=== PATIENT | male | born 1950 | race Caucasian/White ===

== ENCOUNTER 2020-04-09 10:14 | Outpatient (CLI) | payer MEDICARE, BC, SELFPAY ==
--- NOTE | 2020-04-09 11:30 | NEURO_ITS ---
Patient Number: [id number] Impression: # Complains of gait instability with significant numbness. # Neuropathy proximal and distal with decreased motor unit potentials distally more than proximally. # No active fibrillations. # Obvious feet abnormalities. Nerve Conduction Studies Anti Sensory Summary Table Stim Site NR Peak (ms) P-T Amp (?V) Site1 Site2 Delta-P (ms) Dist (cm) Carmelo (m/s) Left Sup Fibular Anti Sensory (Ant Lat Mall) 14 cm 4.3 18.6 14 cm Ant Lat Mall 4.3 16.0 37 Right Sup Fibular Anti Sensory (Ant Lat Mall) 14 cm 4.2 5.7 14 cm Ant Lat Mall 4.2 16.0 38 Left Sural Anti Sensory (Lat Mall) Calf 4.6 14.6 Calf Lat Mall 4.6 16.0 35 Right Sural Anti Sensory (Lat Mall) Calf 4.2 11.9 Calf Lat Mall 4.2 16.0 38 Motor Summary Table Stim Site NR Onset (ms) O-P Amp (mV) Site1 Site2 Delta-0 (ms) Dist (cm) Carmelo (m/s) Left Peroneal Motor (Vastus Med) Ankle 5.5 2.0 Popit Ankle 11.1 41.0 37 Popit 16.6 1.6 Right Peroneal Motor (Vastus Med) Ankle 5.0 1.2 Popit Ankle 10.2 40.0 39 Popit 15.2 0.8 Left Tibial Motor (Abd Whalen Brev) Ankle 4.7 0.3 Knee Ankle 13.0 45.0 35 Knee 17.7 0.4 Right Tibial Motor (Abd Whalen Brev) Ankle 4.2 0.8 Knee Ankle 12.1 47.0 39 Knee 16.3 0.2 F Wave Studies NR F-Lat (ms) L-R F-Lat (ms) Left Peroneal (Mrkrs) (EDB) 61.60 2.62 Right Peroneal (Mrkrs) (EDB) 58.98 2.62 Left Tibial (Mrkrs) (Abd Hallucis) 60.12 0.70 Right Tibial (Mrkrs) (Abd Hallucis) 60.82 0.70 EMG Side Muscle Nerve Root Ins Act Fibs Amp Dur Recrt Comment Right AntTibialis Dp Br Fibular L4-5 Nml Nml Decr >12ms Reduced Right Gastroc Tibial S1-2 Nml Nml Decr >12ms Reduced Right Fibularis Long Sup Br Fibular L5-S1 Nml Nml Decr >12ms Reduced Right Flex Dig Long Tibial L5-S2 Nml Nml Decr >12ms Reduced Right Ext Dig Brev Dp Br Fibular L5, S1 Nml Nml Decr >12ms Reduced Left AntTibialis Dp Br Fibular L4-5 Nml Nml Decr >12ms Reduced Left Gastroc Tibial S1-2 Nml Nml Decr >12ms Reduced Left Fibularis Long Sup Br Fibular L5-S1 Nml Nml Decr >12ms Reduced Left Flex Dig Long Tibial L5-S2 Nml Nml Decr >12ms Reduced Left Ext Dig Brev Dp Br Fibular L5, S1 Nml Nml Decr >12ms Reduced Right QuadratusFem QuadFemoris L4-5, S1 Nml Nml Decr >12ms Reduced Left QuadratusFem QuadFemoris L4-5, S1 Nml Nml Decr >12ms Reduced MTDD
== END 2020-04-09 10:15 | disposition home or self-care (01) ==
PROVIDERS: PCP Student in an Organized Health Care Education/Training Program; Visit Provider Psychiatry & Neurology Neurology
DX: G62.9 Polyneuropathy, unspecified (principal)
CPT/HCPCS: 95886; 95910

== ENCOUNTER 2020-04-22 18:59 | Inpatient (IN) | payer MEDICARE, BC, SELFPAY ==
--- NOTE | ~2020-04-22 | CT_ITS ---
EXAMINATION: CT abdomen pelvis wo con DATE: 04/24/2020 10:11 INDICATION: Hematuria TECHNIQUE: Computed tomography (CT) of the abdomen and pelvis was performed without intravenous contr ast. Automated exposure control and iterative reconstruction technique were employed. The dose-length product was 1044.30 mGy-cm. COMPARISON: None FINDINGS: Calcified nodule in the right lower lobe consistent with old granulomatous disease. Lung bases are ot herwise clear. Heart size is normal. Atherosclerotic coronary artery calcification. No pericardial or pleural effusion. Liver, gallbladder, spleen, pancreas and bilateral adrenal glands are normal. 4-5 mm obstructing stone in the distal left ureter approximately 2.5 cm from the ureterovesicular junctio n. Mild left hydroureteronephrosis. There are couple additional 1 mm stones at the upper and middle c alyces of the left kidney. 4 nonobstructing stones in the right kidney, the largest a 5 mm stone in a n inferior calyx. No right-sided hydronephrosis or ureteral stones. Bladder is decompressed which lam its evaluation. There are a few scattered colonic diverticula without adjacent from [address] diverticulitis. Small bowel and appendix are normal. No free intraperitoneal gas or fluid. No path ologically enlarged abdominal or pelvic lymphadenopathy. Bilateral fat-containing inguinal hernias. L umbar posterior spinal fusion procedure including L3 and L4 laminectomies and partial L3 laminectomy and bilateral vertical darek and pedicle screw fixation extending from L2-L5. Spinal stimulator device is in the subcutaneous tissues of the right buttock with lead extending cephalad along the posterior aspect of the lower thoracic central canal to at least the cephalad-most image which is at T8. There is also a pain pump in the subcutaneous tissues anterior to the right lower quadrant with catheter ex tending cephalad along the thoracic central canal with distal tip at the level of T9. There are bridg ing osteophytes at multiple levels in the lower thoracic spine, consistent with diffuse idiopathic sk eletal hyperostosis (DISH). Right total hip arthroplasty. Severe left hip osteoarthritis. IMPRESSION: 1. Bilateral nephrolithiasis with obstructing 4-5 mm distal left ureteral stone with mild left hydrou reteronephrosis. Reviewed, dictated and finalized at location A. IMPRESSION: 1. Bilateral nephrolithiasis with obstructing 4-5 mm distal left ureteral stone with mild left hydroureteronephrosis.
--- NOTE | ~2020-04-22 | XR_ITS ---
EXAMINATION: XR abdomen/kub 1V DATE: 04/24/2020 14:08 INDICATION: Urolithiasis. TECHNIQUE: A supine view of the abdomen on 2 radiographs was obtained. COMPARISON: CT abdomen and pelvis 04/24/2020 FINDINGS: There are no dilated loops of bowel. There are 3 stones in right kidney measuring up to 6 m m. There is a 4 mm stone in distal left ureter overlying the sacrum. There is a total right hip arthr oplasty. There are changes of anterior and posterior fusion procedures in lumbar spine. A catheter an d electrodes overlie the spine. IMPRESSION: 1. 4 mm stone in distal left ureter. 2. Right kidney stones. Reviewed, dictated and finalized at location A.
--- NOTE | ~2020-04-22 | XR_ITS ---
EXAMINATION: XR shoulder LT min 2V EXAM DATE: 04/22/2020 20:20 INDICATION: Fall, left shoulder pain. TECHNIQUE: The following left shoulder projections obtained: frontal projection with internal rotatio n, frontal projection with external rotation, Grashey, and scapular Y view (4+ views). There is no p rior study for comparison. FINDINGS: There is mild to moderate glenohumeral and acromioclavicular joint primary osteoarthritis. There are no acute fractures or dislocations identified. There is no subcutaneous gas. The soft tis lee ann is unremarkable. There are no radiopaque foreign bodies. IMPRESSION: No acute osseous findings. Reviewed, dictated and finalized at location A. IMPRESSION: No acute osseous findings.
--- NOTE | ~2020-04-22 | CT_ITS ---
EXAMINATION: CT brain wo con EXAM DATE: 04/22/2020 20:07 INDICATION: Frequent falls. TECHNIQUE: Spiral CT of the head was performed without contrast. Axial, coronal and sagittal images were reviewed. The dose-length product (DLP) for this examination was 681.00 mGy-cm. The exposure w as tailored according to patient size, and iterative reconstruction (ASIR) was used as additional dos e reduction technique. Comparison is made to prior examination from 10/20/2019. FINDINGS: There is no acute intraparenchymal hemorrhage. No evidence of intraparenchymal brain mass lesion. No evidence of acute infarction. Please note that initial head CT has limited sensitivity f or small or acute infarctions. There is mild periventricular and subcortical hypodensity, nonspecific but probably related to small vessel ischemic disease. There is mild prominence of the sulci and v entricles related to cerebral atrophy. There is intracranial carotid arteriosclerosis. There are n o extra-axial collections. There is no mass effect or midline shift. The orbits are unremarkable. Soft tissue is unremarkable. The visualized sinuses and mastoid air cells are well aerated. IMPRESSION: 1. No acute intracranial findings. 2. Chronic age related findings. Reviewed, dictated and finalized at location A.
--- NOTE | 2020-04-22 19:06 | ED.GENADULT ---
HPI - General Adult General Chief complaint: Altered Mental Status Stated complaint: weakness Time Seen by Provider: 04/22/20 19:06 Source: patient Mode of arrival: EMS Limitations: no limitations History of Present Illness HPI narrative: Patient is a 69-year-old male who presents for evaluation of a ground-level fall. Patient reportedly ambulates with the use of a cane, has had a fall at least once per month since October, when he tripped in the bathroom and fell onto his bottom. Patient states he feels like he hurt his left shoulder when he fell. He denies any prodromal symptoms such as chest pain, shortness of breath, palpitations prior to the fall. No recent lightheadedness or dizziness, patient states that his blood pressure has been downtrending since he has had a 50 pound intentional weight loss, and his primary care physician took him off of his antihypertensives. Patient denies any recent illness, no diarrhea, no decreased oral intake. No hip pain. No numbness. No current weakness. Related Data Home Medications Medication Instructions Recorded Confirmed divalproex PO 10/20/19 divalproex PO 10/20/19 gabapentin 10/20/19 lurasidone [Latuda] mg 10/20/19 meloxicam 10/20/19 tamsulosin mg PO 10/20/19 Allergies Allergy/AdvReac Type Severity Reaction Status Date / Time No Known Allergies Allergy Verified 04/22/20 19:16 Review of Systems Review of Systems: Narrative: CONSTITUTIONAL: Denies fever, chills, or sweats. EYES: Denies visual changes, redness, or discharge. ENT: Denies rhinorrhea, congestion, sore throat, or otalgia. CARDIOVASCULAR: Denies chest pain, palpitations, or edema. RESPIRATORY: Denies cough or dyspnea. GASTROINTESTINAL: Denies abdominal pain, nausea, vomiting, or diarrhea. GENITOURINARY: Denies dysuria or hematuria. SKIN: Denies rash or itching. MUSCULOSKELETAL: Denies back pain, reports left sided shoulder pain NEUROLOGIC: Denies headache, numbness, or weakness. [facility] Past Medical History Medical History Anxiety Arthritis Back pain Bilateral ankle fractures Bipolar disorder DDD (degenerative disc disease) Depression GERD (gastroesophageal reflux disease) Hypothyroidism Kidney stone Osteoporosis Surgical History Surgical History History of right hip replacement Hx of spinal surgery spinal fusion on L4-L5 Family History Family History Mother Hypertension, Onset Age: 83 Family history of respiratory disorder, Onset Age: 83 Family history of chronic obstructive pulmonary disease, Onset Age: 83 Other Family history of gynecological problem Social History Social History Smoking status: Never smoker Alcohol intake: current Gender identity (if verbalized by the patient): Male Exam Narrative: Exam Narrative: GENERAL: Awake, alert, conversant HEAD: Normocephalic, atraumatic. EYES: PERRLA and EOMI. ENT: Nares clear, no rhinorrhea or epistaxis. Mucous membranes moist.l NECK: Supple. No cervical spine tenderness, no midline or paraspinal tenderness, full range of motion. CHEST: No respiratory distress, breathing even and non labored HEART: Regular rate, sinus rhythm ABDOMEN:Non distended, non tender, pain pump RLQ EXTREMITIES: Normal range of motion. No edema. Tenderness overlying left shoulder, intact sensation over the deltoid, no squaring off of the shoulder, intact sensation m/u/r nerve. Radial pulse 2+, no deformity. SKIN: Warm, dry, no rash. NEURO:No focal deficits. Alert and oriented x3, resting tremor present right hand, mild atrophy present lower extremities Course Vital Signs Vital signs: Vital Signs Temperature 36.9 C 04/22/20 19:07 Pulse Rate 90 04/22/20 19:07 Respiratory Rate 20 04/22/20 19:07 Blood Pressu
[2020-04-22 19:07] VITALS: BP 109/85; PULSE 90; RESP 20; TEMP 36.9; O2SAT 94
--- NOTE | 2020-04-22 19:17 | ECG_ITS ---
Measurements Intervals [place] Rate: 79 P: 20 IA: 169 QRS: -40 QRSD: 118 T: 76 QT: 396 QTc: 456 Interpretive Statements SINUS RHYTHM LEFT AXIS DEVIATION INTRAVENTRICULAR CONDUCTION DELAY MINIMAL Q WAVES- HIGH LATERAL LEADS BORDERLINE ST-T WAVE ABNORMALITY- HIGH LATERAL LEADS BASELINE ARTIFACT- I, II, III, AVR, AVF BORDERLINE ECG Electronically Signed On 04-23-2020 6:47:13 CDT by Yfn Recinos D.O.
[2020-04-22] MEDS: SODIUM CHLORIDE 0.9% IV 1,000 ML 999 ML IV CONT (19:40)
[2020-04-22 19:46] LABS: Basophils Percent Auto 0.4 % (0.2-1.2); Blood Urea Nitrogen 10 mg/dL (9-20); Calcium 9.8 mg/dL (8.4-10.2); Carbon Dioxide 38 mmol/L (22-30); Chloride 96 mmol/L (98-107); Eosinophils Percent Auto 0.4 % (0-4.4); Estimated CRCL calculation 70 ml/min; Estimated Glomerular Filt Rate 60; Glucose 99 mg/dL (75-110); Hematocrit 39.3 % (42.0-52.0); Hemoglobin 13.1 g/dL (14.0-18.0); Immature Granulocyte Absolute 0.03 K/mm3 (0.00-0.031); Immature Granulocyte Percent A 0.3 % (0-0.5); Lymphocytes Absolute Auto 1.78 K/mm3 (0.9-3.2); Lymphocytes Percent Auto 17.1 % (18.3-44.2); Mean Corpuscular HGB Conc 33.3 g/dl (32-36); Mean Corpuscular Hemoglobin 29.2 pg (26-34); Mean Corpuscular Volume 87.7 fl (80-100); Mean Platelet Volume 9.2 fl (7.4-10.4); Monocytes Absolute Auto 1.5 K/mm3 (0.1-0.6); Monocytes Percent Auto 14.8 % (2.6-8.5); Platelet Count Result 321 k/mm3 (150-375); Potassium 3.7 mmol/L (3.4-5.0); Red Blood Count 4.48 M/mm3 (4.6-6.20); Red Cell Distribution Width 13.2 % (11.5-14.5); Sodium 138 mmol/L (137-145); White Blood Count 10.4 K/mm3 (4.5-10.0)
[2020-04-22 19:58] LABS: Troponin I < 0.012 ng/mL (0.000-0.034)
[2020-04-22 21:24] LABS: Add Urine Microscopic? YES; Appearance Urine Clear (Clear); Bilirubin Urine Negative (Negative); Blood Urine 3+ (Negative); Color Urine Yellow (Yellow); Glucose Urine UA Negative (Negative); Ketones Urine Negative (Negative); Leukocyte Esterase Ur Negative LEU/UL (Negative); Mucus Urine Rare /lpf; Nitrate Urine Negative (Negative); Protein Urine Negative (Negative); RBC Urine 51-75 /hpf (0-2); Specific Grav Ur 1.015 (1.001-1.035); Squamous Epithelial Cell Urine Rare /hpf (Few); Urobilinogen Urine Negative mg/dL (<2.0); WBC Urine 0-3 /hpf
[2020-04-22 22:53] VITALS: BP 126/84; PULSE 75; RESP 22; TEMP 36.9; O2SAT 99
[2020-04-23 00:10] VITALS: BP 146/67; PULSE 68; RESP 18; TEMP 37.1; O2SAT 95; BMI 30.4
--- NOTE | 2020-04-23 00:21 | ADMGEN ---
This patient, Phani Patricia, was admitted to [facility] Surg Room 306-01. Patient/family oriented to hospital policies and general routines including ID bracelet, bed and alarms, visiting hours, pain management, procedures, bathroom and other care routines, personal items, smoking policy, room service/diet, and visiting hours. Valuables list has been completed. Information on how to activate the Rapid Response Team has been discussed. Patient/Family are encouraged to report perceived risks to care and to ask questions if they do not understand what they are told or what they should do.
[2020-04-23 00:48] VITALS: PULSE 72; O2SAT 93
--- NOTE | 2020-04-23 02:14 | PM.IMHP ---
H&P: HPI History of Present Illness Chief complaint: Frequent falls Narrative: This is a 69 year old male with known history of severe peripheral neuropathy, hypothyroidism and GERD who presented to the hospital after suffering a fall tonight in his bathroom and not being able to get back up. The patient is known to have chronic severe lower extremity peripheral neuropathy and tells me that he cannot feel his feet. This is the 4th fall that he has suffered since October and after each fall he cannot get up off the ground because he is too weak. He fell this evening after he used the bathroom and got up to leave the bathroom. He describes simply loosing his balance and falling backwards. He struck the back of his head on the way down but denies hitting his head on the floor or passing out. The patient was evaluated in the ER and CT brain was negative. Routine labs were unremarkable. The patient was going to be discharged home but asked that he stay in the hospital as he is afraid he is a danger for more falls and cannot care for himself. He also reports that he has had a chronic wound on the bottom of his right foot. He also denies any fevers, chills, cough, sore throat, headache, chest pain, abdominal pain, dysuria, hematuria, diarrhea or rectal bleeding. Review of Systems Review of Systems: All systems reviewed & are unremarkable except as noted in HPI and below PMFSH Past Medical History Medical History (Updated 04/23/20 @ 13:38 by Angel Presley MD) Anxiety Arthritis Back pain Bilateral ankle fractures Bipolar disorder DDD (degenerative disc disease) Depression GERD (gastroesophageal reflux disease) Hypothyroidism Kidney stone JANIS (obstructive sleep apnea) Osteoporosis Surgical History Surgical History History of right hip replacement Hx of spinal surgery spinal fusion on L4-L5 Family History Family History Mother Hypertension, Onset Age: 83 Family history of respiratory disorder, Onset Age: 83 Family history of chronic obstructive pulmonary disease, Onset Age: 83 Other Family history of gynecological problem Social History Social History Smoking status: Never smoker Alcohol intake: current Drinks per week: 2 Substance use: never Gender identity (if verbalized by the patient): Male Spiritual care concerns: No Meds Home Medications and Allergies Home Medications Medication Instructions Recorded Confirmed Type duloxetine 60 mg capsule,delayed 60 mg PO DAILY #90 cap 09/26/19 04/23/20 Rx release sprinkle divalproex 250 mg PO DAILY 10/20/19 04/23/20 History divalproex 500 mg PO DAILY 10/20/19 04/23/20 History lurasidone [Latuda] 40 mg PO DAILY 10/20/19 04/23/20 History tamsulosin 0.4 mg PO DAILY 10/20/19 04/23/20 History acidophilus-pectin, citrus 1 cap PO DAILY 04/23/20 04/23/20 History [Acidophilus Probiotic] buspirone 10 mg PO TID 04/23/20 04/23/20 History cholecalciferol (vitamin D3) 2,000 unit PO DAILY 04/23/20 04/23/20 History [Vitamin D3] furosemide 40 mg PO DAILY 04/23/20 04/23/20 History gabapentin 200 mg PO TID 04/23/20 04/23/20 History levothyroxine 150 mcg PO DAILY 04/23/20 04/23/20 History lisinopril 20 mg PO DAILY 04/23/20 04/23/20 History melatonin 10 mg PO HS 04/23/20 04/23/20 History polyethylene glycol 3350 [Miralax] 17 g PO DAILY 04/23/20 04/23/20 History propranolol 20 mg PO Q12H 04/23/20 04/23/20 History simvastatin 20 mg PO HS 04/23/20 04/23/20 History Allergies Allergy/AdvReac Type Severity Reaction Status Date / Time No Known Allergies Allergy Verified 04/22/20 19:16 Vital Signs Vital Signs - 24 hr 04/22/20 19:07 04/22/20 22:53 04/23/20 00:10 Temperature 36.9 C 36.9 C 37.1 C Pulse Rate 90 75 68 Respiratory Rate 20 22 H 18 Blood Pressure 109/85 126/84 146/
[2020-04-23 06:00] VITALS: BP 127/66; PULSE 71; RESP 18; TEMP 36.4; O2SAT 95
[2020-04-23] MEDS: LEVOTHYROXINE SODIUM 100 MCG TABLET PO (06:40)
[2020-04-23] MEDS: ACIDOPHILUS/BULGARICUS CHEWABLE TABLET 1 TABLET PO (08:38)
[2020-04-23] MEDS: GABAPENTIN 300 MG CAPSULE 600 MG PO (08:38)
[2020-04-23] MEDS: polyethylene glycoL 3350 17 GM POWD.PACK PO (08:38)
[2020-04-23] MEDS: FUROSEMIDE 40 MG TABLET PO (08:39)
[2020-04-23] MEDS: DULOXETINE 60 MG CAPSULE.DR PO (08:39)
[2020-04-23] MEDS: CHOLECALCIFEROL 1,000 UNIT TABLET 2000 UNITS PO (08:39)
--- NOTE | 2020-04-23 13:16 | PM.IMPN ---
Progress Note: A&P Assessment and Plan (1) Ambulatory dysfunction: Code(s): R26.2 - Difficulty in walking, not elsewhere classified Status: Acute Assessment and Plan: Related to severe peripheral neuropathy. Continue PT and OT. Will check B12 and TSH. (2) Falls frequently: Code(s): R29.6 - Repeated falls Status: Chronic Assessment and Plan: Again felt related to the severe peripheral neuropathy. Therapy following. Placement being arranged. (3) Peripheral neuropathy: Qualifiers: Peripheral neuropathy type: polyneuropathy, unspecified Qualified Code(s): G62.9 - Polyneuropathy, unspecified Code(s): G62.9 - Polyneuropathy, unspecified Status: Chronic Assessment and Plan: Continue gabapentin. The patient has requested that we consult his Neurologist, Dr. Loza to see him which was ordered. (4) Depression: Qualifiers: Depression Type: unspecified Qualified Code(s): F32.9 - Major depressive disorder, single episode, unspecified Code(s): F32.9 - Major depressive disorder, single episode, unspecified Status: Chronic Assessment and Plan: Mood stable. Continue duloxetine PO. (5) Bipolar disorder: Qualifiers: Active/Remission status: remission status unspecified Qualified Code(s): F31.9 - Bipolar disorder, unspecified Code(s): F31.9 - Bipolar disorder, unspecified Status: Chronic Assessment and Plan: Stable. Continue Valproic acid and buspirone for now. VPA can cause asthenia which could be contributing to his issues. Latuda reordered. (6) Hypothyroidism: Qualifiers: Hypothyroidism type: unspecified Qualified Code(s): E03.9 - Hypothyroidism, unspecified Code(s): E03.9 - Hypothyroidism, unspecified Status: Chronic Assessment and Plan: Stable. Continue levothyroxine. Check TSH (7) Wound of foot: Code(s): S91.309A - Unspecified open wound, unspecified foot, initial encounter Status: Chronic Assessment and Plan: Chronic right foot wound. Continue local wound care. Patient is being followed by podiatry. (8) Hematuria: Code(s): R31.9 - Hematuria, unspecified Status: Acute Assessment and Plan: UA noted. He denies that he was cathed for specimen. Has BPH currently on Flomax. Lifelong nonsmoker. No symptoms of hematuria and dysuria. Will check CT scan. (9) JANIS (obstructive sleep apnea): Code(s): G47.33 - Obstructive sleep apnea (adult) (pediatric) Status: Acute Assessment and Plan: Tolerated CPAP last night. Bicarb level elevated probably related to poorly controlled JANIS. Continue CPAP at night and with naps. Probably will need repeat sleep evaluation if not done recently. Check ABG to see if he has chronic retention that might explain his above symptoms. Subjective Date/time seen: 04/23/20 13:16 Interval history: 69yo male here for fall. Assuming care. Chart reviewed. Naya has soreness occipital region but better. No CP or SOB. He has been up walking with walker. No n/v. No diarrhea. Tolerated the mask last night. Exam Narrative: Exam Narrative: AF 127/66 71 Gen - NARD HEENT - NC. No open areas occiput region Neck - supple Chest - CTA bilaterally, nml RR CV - RRR S1/S2 Abd - Soft, NT/ND, Positive BS Ext - No pedal edema Neuro - Alert and oriented. Nonfocal exam. Psych - Nml mood and affect Skin -right medial sole 1 cm round flat lesion with necrotic border small central ulcer 0.5 cm; dried callus noted medial aspect right great toe Objective Data Vital Signs Vital Signs: Vital Signs - 24 hr 04/22/20 19:07 04/22/20 22:53 04/23/20 00:10 Temperature 98.4 F 98.4 F 98.8 F Pulse Rate 90 75 68 Respiratory Rate 20 22 H 18 Blood Pressure 109/85 126/84 146/67 H Pulse Oximetry 94 99 95 04/23/20 00:48 04/23/20 06:00 Temperatur
[2020-04-23] MEDS: ACETAMINOPHEN 325 MG TABLET 650 MG PO ×2 (13:43→17:51)
[2020-04-23 14:00] VITALS: BP 167/87; PULSE 89; RESP 16; TEMP 36.7; O2SAT 97
[2020-04-23 14:18] LABS: Base Excess ABG 10.6 mEq/l (+/-2.0); Fractional Inspired Oxygen 21 %; HCO3 ABG 36.2 mEq/l (22.0-26.0); Oxygen Content ABG 17.5 %vol (16.0-22.0); Oxyhemoglobin 92.9 % THb (90.0-100.0); PCO2 ABG 52.1 mmHg (35.0-45.0); PO2 ABG 67.3 mmHg (80.0-100.0); Total Hemoglobin 13.4 g/dL (12.0-18.0)
[2020-04-23 14:19] LABS: Device ROOM AIR; Modified Allen's Test Pass; Site Drawn RIGHT RADIAL
[2020-04-23 15:40] LABS: Alanine Aminotransferase 16 U/L (4-50); Alkaline Phosphatase 93 U/L (38-126); Aspartate Amino Transferase 29 U/L (17-59); Bilirubin,Total 0.4 mg/dL (0.2-1.3)
[2020-04-23 16:45] LABS: Folic Acid 8.6 ng/mL (2.76->20)
[2020-04-23] MEDS: GABAPENTIN 100 MG CAPSULE 200 MG PO (16:49)
[2020-04-23] MEDS: busPIRone HCL 10 MG TABLET PO (16:49)
[2020-04-23] MEDS: DIVALPROEX SODIUM 250 MG TABEC PO (20:26)
[2020-04-23] MEDS: SIMVASTATIN 20 MG TABLET PO (20:26)
[2020-04-23] MEDS: TAMSULOSIN HCL 0.4 MG CAPSULE PO (20:26)
[2020-04-23] MEDS: DIVALPROEX SODIUM 250 MG TABEC 500 MG PO (20:26)
[2020-04-23 22:00] VITALS: BP 134/70; PULSE 60; RESP 18; TEMP 36.8; O2SAT 94
[2020-04-23 22:10] VITALS: PULSE 64; O2SAT 95
[2020-04-24 02:01] VITALS: PULSE 70; O2SAT 94
[2020-04-24 06:00] VITALS: BP 129/76; PULSE 62; RESP 18; TEMP 36.7; O2SAT 99
[2020-04-24] MEDS: CHOLECALCIFEROL 1,000 UNIT TABLET 2000 UNITS PO (08:25)
[2020-04-24] MEDS: FUROSEMIDE 40 MG TABLET PO (08:25)
[2020-04-24] MEDS: DULOXETINE 60 MG CAPSULE.DR PO (08:25)
[2020-04-24] MEDS: GABAPENTIN 100 MG CAPSULE 200 MG PO ×3 (08:25→16:55)
[2020-04-24] MEDS: ACIDOPHILUS/BULGARICUS CHEWABLE TABLET 1 TABLET PO (08:25)
[2020-04-24] MEDS: busPIRone HCL 10 MG TABLET PO ×3 (08:25→16:56)
--- NOTE | 2020-04-24 13:15 | WPDURCON ---
Assessment and Plan Assessment and plan (1) Microhematuria: Code(s): R31.29 - Other microscopic hematuria Status: Acute (2) Bilateral renal stones: Code(s): N20.0 - Calculus of kidney Status: Acute (3) Left ureteral stone: Code(s): N20.1 - Calculus of ureter Status: Acute Assessment and Plan: Micro hematuria likely due to urolithiasis as described above 4-5 mm partially obstructing left distal ureteral calculus is minimally problematic. After discussion with the patient we opted for conservative management. I will plan to see him back in 7-10 days with a KUB to see if his stone has spontaneously passed. His stone fails to pass, or he starts to have acute colic, we can intervene with ureteroscopy and stone extraction Get a KUB to see if stones are calcified. Urology Consult Note HPI Date Seen: 04/24/20 Requesting Physician: Micheal Presley MD Primary Care Provider: Lauro Campbell, Consult Narrative Narrative: Phani Patricia is a 69 year old male with a history of several prior ureteral calculi which have passed spontaneously. He is admitted now with progressive neuropathy leading to multiple falls. During the course of initial evaluation was noted to have microscopic hematuria. A CT scan of the abdomen and pelvis without contrast demonstrates bilateral renal calculi up to 4-5 mm in a partially obstructing 4 mm left distal ureteral stone. Patient is having only very minimal left flank discomfort which is not particularly problematic. He denies irritable voiding symptoms Review of Systems Cardiovascular: Cardiovascular: Denies chest pain, Denies lightheadedness, Denies palpitations and Denies dyspnea Respiratory: Respiratory: Denies dyspnea Gastrointestinal: Gastrointestinal: Denies diarrhea, Denies nausea and Denies vomiting Genitourinary: Genitourinary: Denies hematuria and Denies dysuria Endocrine: Endocrine: Denies palpitations [facility] Past Medical History Medical History (Updated 04/24/20 @ 13:17 by Roscoe Ballard MD) Anxiety Arthritis Back pain Bilateral ankle fractures Bipolar disorder DDD (degenerative disc disease) Depression GERD (gastroesophageal reflux disease) Hypothyroidism Kidney stone JANIS (obstructive sleep apnea) Osteoporosis Surgical History Surgical History History of right hip replacement Hx of spinal surgery spinal fusion on L4-L5 Family History Family History Mother Hypertension, Onset Age: 83 Family history of respiratory disorder, Onset Age: 83 Family history of chronic obstructive pulmonary disease, Onset Age: 83 Other Family history of gynecological problem Social History Social History Smoking status: Never smoker Alcohol intake: current Drinks per week: 2 Substance use: never Gender identity (if verbalized by the patient): Male Spiritual care concerns: No Meds Home Medications and Allergies Home Medications Medication Instructions Recorded Confirmed Type duloxetine 60 mg capsule,delayed 60 mg PO DAILY #90 cap 09/26/19 04/23/20 Rx release sprinkle divalproex 250 mg PO DAILY 10/20/19 04/23/20 History divalproex 500 mg PO DAILY 10/20/19 04/23/20 History lurasidone [Latuda] 40 mg PO DAILY 10/20/19 04/23/20 History tamsulosin 0.4 mg PO DAILY 10/20/19 04/23/20 History acidophilus-pectin, citrus 1 cap PO DAILY 04/23/20 04/23/20 History [Acidophilus Probiotic] buspirone 10 mg PO TID 04/23/20 04/23/20 History cholecalciferol (vitamin D3) 2,000 unit PO DAILY 04/23/20 04/23/20 History [Vitamin D3] furosemide 40 mg PO DAILY 04/23/20 04/23/20 History gabapentin 200 mg PO TID 04/23/20 04/23/20 History levothyroxine 150 mcg PO DAILY 04/23/20 04/23/20 History lisinopril 20 mg PO DAILY 04/23/20 04/23/20 H
--- NOTE | 2020-04-24 13:20 | CONS_ITS ---
DATE OF CONSULTATION: 04/22/2020 HISTORY OF PRESENT ILLNESS: A 69-year-old has been admitted to [facility] through the emergency room with the ongoing diagnoses of: 1. Severe peripheral neuropathy. 2. Hypothyroid. 3. GERD. 4. Recurrent falls with loss of the balance. Initial CT scan in the emergency room was negative. In addition, he carries a diagnosis of anxiety, arthritis, back pain, history of bipolar disorder, degenerative disk disease, depression, GERD, hypothyroidism, renal stone, and obstructive sleep apnea with osteoporosis. He is a current alcohol drinker, drinks per week at least 2. He is not a substance user and he never smoked. He has been taking multiple medications. PHYSICAL EXAMINATION: VITAL SIGNS: Up until now, he is afebrile, normotensive with blood pressure most recently 146/67. GENERAL: Physical examination revealed him to be awake, alert, cooperative, in no obvious acute distress. HEENT: Head normocephalic with no cranial bruit. Ear, nose, throat examination normal. NECK: Supple with no cervical bruit. No thyromegaly. No lymphadenopathy. HEART: Regular. LUNGS: Clear. ABDOMEN: Soft. NEUROLOGICAL: Normal. He is awake, alert, oriented x3. Speech not dysphasic, not dysarthric, not dysphonic. Pupils round, regular. Quintero of vision full. Extraocular movements full. Face symmetrical. Tongue midline. Motor examination revealed him to have decrease strength, sluggish reflexes, downgoing plantar responses. LABORATORY DATA: Evaluation up until now include the CT scan of the head, which is negative. The patient has been taking the same medication. At this stage, he has severe neuropathy with ongoing history of the recurrent falls. He will need the physical therapy and also readjustment in lifestyle. AVA OSEGUERA M.D. PLASTERING CONTRACTOR PLASTERING CONTRACTOR D I MT: Shanthi
[2020-04-24] MEDS: LEVOTHYROXINE SODIUM 150 MCG TABLET PO (13:33)
[2020-04-24 14:28] VITALS: BP 117/66; PULSE 81; RESP 16; TEMP 36.7; O2SAT 98
--- NOTE | 2020-04-24 15:24 | PCPTNOTE ---
The PT treatment was not completed today. Will continue per Plan of Care frequency and duration.
[2020-04-24 16:51] LABS: SARS-CoV-2 RNA PCR Negative
--- NOTE | 2020-04-24 19:00 | PM.IMPN ---
Progress Note: A&P Assessment and Plan (1) Ambulatory dysfunction: Code(s): R26.2 - Difficulty in walking, not elsewhere classified Status: Acute Assessment and Plan: Related to severe peripheral neuropathy. Continue PT and OT. B12 and TSH normal. (2) Falls frequently: Code(s): R29.6 - Repeated falls Status: Chronic Assessment and Plan: Again felt related to the severe peripheral neuropathy. Therapy following. Placement being arranged. (3) Peripheral neuropathy: Qualifiers: Peripheral neuropathy type: polyneuropathy, unspecified Qualified Code(s): G62.9 - Polyneuropathy, unspecified Code(s): G62.9 - Polyneuropathy, unspecified Status: Chronic Assessment and Plan: Continue gabapentin. The patient has requested that we consult his Neurologist, Dr. Loza to see him which was ordered. Appreciate neurology input. (4) Depression: Qualifiers: Depression Type: unspecified Qualified Code(s): F32.9 - Major depressive disorder, single episode, unspecified Code(s): F32.9 - Major depressive disorder, single episode, unspecified Status: Chronic Assessment and Plan: Mood stable. Continue duloxetine PO. (5) Bipolar disorder: Qualifiers: Active/Remission status: remission status unspecified Qualified Code(s): F31.9 - Bipolar disorder, unspecified Code(s): F31.9 - Bipolar disorder, unspecified Status: Chronic Assessment and Plan: Stable. Continue Valproic acid and buspirone for now. VPA can cause asthenia which could be contributing to his issues. Latuda reordered. (6) Hypothyroidism: Qualifiers: Hypothyroidism type: unspecified Qualified Code(s): E03.9 - Hypothyroidism, unspecified Code(s): E03.9 - Hypothyroidism, unspecified Status: Chronic Assessment and Plan: Stable. TSH okay. Continue levothyroxine. (7) Wound of foot: Code(s): S91.309A - Unspecified open wound, unspecified foot, initial encounter Status: Chronic Assessment and Plan: Chronic right foot wound. Continue local wound care. Patient is being followed by podiatry. (8) Left ureteral stone: Code(s): N20.1 - Calculus of ureter Status: Acute Assessment and Plan: CT scan showing bilateral nephrolithiasis with obstructing 4-5 mm distal left ureteral stone with mild left hydroureteronephrosis most likely causing the hematuria. This stone can be seen by KUB. Urology consulted and appreciate their input. (9) Hematuria: Code(s): R31.9 - Hematuria, unspecified Status: Acute Assessment and Plan: UA noted. He denies that he was cathed for specimen. Has BPH currently on Flomax. Lifelong nonsmoker. No symptoms of hematuria and dysuria. CT scan as mentioned above to explain the microscopic hematuria. (10) JANIS (obstructive sleep apnea): Code(s): G47.33 - Obstructive sleep apnea (adult) (pediatric) Status: Acute Assessment and Plan: Tolerated CPAP last night. Bicarb level elevated probably related to poorly controlled JANIS. ABG showing chronic CO2 retention. Continue CPAP at night and with naps. Will need repeat sleep evaluation if not done recently. Subjective Date/time seen: 04/24/20 19:00 Interval history: 69yo male here for fall. No complaints. Up walking in the halss with therapy. Slept well last night. Tolerated the CPAP. Does have left groin pain off and on for a few months. Exam Narrative: Exam Narrative: AF 117/66 81 Gen - NARD Chest - CTA bilaterally, nml RR CV - RRR S1/S2 Abd - Soft, NT/ND, Positive BS Ext - No pedal edema Psych - Nml mood and affect Objective Data Vital Signs Vital Signs: Vital Signs - 24 hr 04/23/20 22:00 04/23/20 22:10 04/24/20 02:01 Temperature 98.3 F Pulse Rate 60 64 70 Respiratory Rate 18 Blood Pressure 134/70 Pu
[2020-04-24] MEDS: DIVALPROEX SODIUM 250 MG TABEC 500 MG PO (20:20)
[2020-04-24] MEDS: DIVALPROEX SODIUM 250 MG TABEC PO (20:20)
[2020-04-24] MEDS: TAMSULOSIN HCL 0.4 MG CAPSULE PO (20:20)
[2020-04-24] MEDS: SIMVASTATIN 20 MG TABLET PO (20:20)
[2020-04-24 22:25] VITALS: BP 135/61; PULSE 72; RESP 18; TEMP 36.5; O2SAT 96
[2020-04-24 23:13] VITALS: PULSE 66; O2SAT 95
[2020-04-25] MEDS: LEVOTHYROXINE SODIUM 150 MCG TABLET PO (05:47)
[2020-04-25 07:49] VITALS: BP 125/69; PULSE 61; RESP 16; TEMP 36.9; O2SAT 98
[2020-04-25] MEDS: polyethylene glycoL 3350 17 GM POWD.PACK PO (08:11)
[2020-04-25] MEDS: CHOLECALCIFEROL 1,000 UNIT TABLET 2000 UNITS PO (08:11)
[2020-04-25] MEDS: busPIRone HCL 10 MG TABLET PO ×2 (08:11→12:11)
[2020-04-25] MEDS: FUROSEMIDE 40 MG TABLET PO (08:12)
[2020-04-25] MEDS: ACIDOPHILUS/BULGARICUS CHEWABLE TABLET 1 TABLET PO (08:12)
[2020-04-25] MEDS: DULOXETINE 60 MG CAPSULE.DR PO (08:12)
[2020-04-25] MEDS: GABAPENTIN 100 MG CAPSULE 200 MG PO ×2 (08:12→12:11)
--- NOTE | 2020-04-25 08:14 | WPDUROPN2 ---
Progress Note: A&P Assessment and Plan (1) Left ureteral stone: Code(s): N20.1 - Calculus of ureter Status: Acute Assessment and Plan: Patient is asymptomatic. Will follow conservatively. He is to continue to strain urine. Dr. bowles will see him as an outpatient in 7-10 days with a KUB and make further recommendations pending that study. If he develops any pain prior that he will need to be addressed sooner Subjective Subjective Date/Time Seen: 04/25/20 08:14 No major complaints at this time. Denies any left flank pain secondary to the ureteral calculus Review of Systems Review of Systems: All systems reviewed & are unremarkable except as noted in HPI and below Exam Const: General: no acute distress Resp: Effort & Inspection: normal respiratory effort Cardio: Rate: regular rate GI: Inspection: non-distended Objective Data Vital Signs Vital Signs: Vital Signs - 24 hr 04/24/20 14:28 04/24/20 22:25 04/24/20 23:13 Temperature 36.7 C 36.5 C Pulse Rate 81 72 66 Respiratory Rate 16 18 Blood Pressure 117/66 135/61 Pulse Oximetry 98 96 95 04/25/20 07:49 Temperature 36.9 C Pulse Rate 61 Respiratory Rate 16 Blood Pressure 125/69 Pulse Oximetry 98 Intake/Output Intake/Output: Intake & Output 04/22/20 04/23/20 04/24/20 04/25/20 23:59 23:59 23:59 23:59 Intake Total 1000 2270 2070 300 Output Total 300 2900 750 Balance 1000 8660 -020 450 Meds/Results Medications: Active Medications Generic Name Dose Route Start Last Admin Trade Name Freq PRN Reason Stop Dose Admin Acetaminophen 650 mg 04/22/20 22:22 04/23/20 17:51 Tylenol Tablet PO 650 mg Q4H PRN Administration Mild Pain (1-3) or Fever Buspirone HCl 10 mg 04/23/20 17:00 04/24/20 16:56 Buspar PO 10 mg TID LINDA Administration Divalproex Sodium 250 mg 04/23/20 21:00 04/24/20 20:20 Depakote Ec Tab PO 250 mg HS LINDA Administration Divalproex Sodium 500 mg 04/23/20 21:00 04/24/20 20:20 Depakote Ec Tab PO 500 mg HS LINDA Administration Duloxetine HCl 60 mg 04/23/20 09:00 04/24/20 08:25 Cymbalta PO 60 mg DAILY LINDA Administration Furosemide 40 mg 04/24/20 09:00 04/24/20 08:25 Lasix Tablet PO 40 mg DAILY LINDA Administration Gabapentin 200 mg 04/23/20 17:00 04/24/20 16:55 Neurontin PO 200 mg TID LINDA Administration Lactobacillus Acidophilus 1 tablet 04/23/20 09:00 04/24/20 08:25 Lactinex Chewable Tablet PO 05/23/20 09:01 1 tablet DAILY LINDA Administration Levothyroxine Sodium 150 mcg 04/24/20 09:00 04/25/20 05:47 Synthroid PO 150 mcg DAILY@0630 LINDA Administration Non-Formulary Medication 40 mg 04/23/20 09:00 Lurasidone [Latuda] PO 05/23/20 09:01 DAILY [facility] Polyethylene Glycol 17 gm 04/23/20 09:00 04/24/20 08:27 Miralax PO Not Given DAILY [facility] Simvastatin 20 mg 04/23/20 21:00 04/24/20 20:20 Zocor PO 20 mg HS LINDA Administration Tamsulosin HCl 0.4 mg 04/23/20 21:00 04/24/20 20:20 Flomax PO 0.4 mg HS [facility] Administration Vitamin D 2,000 unit 04/23/20 09:00 04/24/20 08:25 Vitamin D PO 2,000 unit DAILY LINDA Administration Radiology Results: ITS Impressions Head CT 04/22/20 20:10 IMPRESSION: 1. No acute intracranial findings. 2. Chronic age related findings. Shoulder X-Ray 04/22/20 20:29 IMPRESSION: No acute osseous findings. Abdomen/Pelvis CT 04/24/20 11:00 IMPRESSION: 1. Bilateral nephrolithiasis with obstructing 4-5 mm distal left ureteral stone with mild left hydroureteronephrosis. Abdomen X-Ray 04/24/20 15:07 IMPRESSION: 1. 4 mm stone in distal left ureter. 2. Right kidney stones. Labs Labs: Laboratory Results - last 24 hr 04/23/20 16:54 SARS-CoV-2 RNA (RT-PCR) Negative Quality VTE Prophylaxis VTE prophylaxis: mechanical ordered
[2020-04-25] MEDS: ACETAMINOPHEN 325 MG TABLET 650 MG PO (10:50)
--- NOTE | 2020-04-25 12:32 | PM.DS ---
DS: Admitting Diagnosis Admitting Diagnosis Admitting Diagnosis: Difficulty in walking, not elsewhere classified DS: Discharge Diagnosis Discharge Diagnosis (1) Ambulatory dysfunction: Code(s): R26.2 - Difficulty in walking, not elsewhere classified Status: Acute Assessment and Plan: Related to severe peripheral neuropathy. B12 and TSH normal. PT and OT work with the patient. Patient did well ambulating in the halls. (2) Falls frequently: Code(s): R29.6 - Repeated falls Status: Chronic Assessment and Plan: Again felt related to the severe peripheral neuropathy. Therapy following. Placement was arranged. (3) Peripheral neuropathy: Qualifiers: Peripheral neuropathy type: polyneuropathy, unspecified Qualified Code(s): G62.9 - Polyneuropathy, unspecified Code(s): G62.9 - Polyneuropathy, unspecified Status: Chronic Assessment and Plan: We continued his gabapentin. The patient has requested that we consult his Neurologist, Dr. Loza to see him which was ordered. Appreciate neurology input. (4) Depression: Qualifiers: Depression Type: unspecified Qualified Code(s): F32.9 - Major depressive disorder, single episode, unspecified Code(s): F32.9 - Major depressive disorder, single episode, unspecified Status: Chronic Assessment and Plan: Mood stable. We continued his duloxetine PO. (5) Bipolar disorder: Qualifiers: Active/Remission status: remission status unspecified Qualified Code(s): F31.9 - Bipolar disorder, unspecified Code(s): F31.9 - Bipolar disorder, unspecified Status: Chronic Assessment and Plan: Stable. Continue Valproic acid and buspirone for now. VPA can cause asthenia which could be contributing to his issues. Latuda reordered. (6) Hypothyroidism: Qualifiers: Hypothyroidism type: unspecified Qualified Code(s): E03.9 - Hypothyroidism, unspecified Code(s): E03.9 - Hypothyroidism, unspecified Status: Chronic Assessment and Plan: Stable. TSH okay. We continued levothyroxine. (7) Wound of foot: Code(s): S91.309A - Unspecified open wound, unspecified foot, initial encounter Status: Chronic Assessment and Plan: Chronic right foot wound. Continue local wound care. Patient is being followed by podiatry. (8) Left ureteral stone: Code(s): N20.1 - Calculus of ureter Status: Acute Assessment and Plan: CT scan showing bilateral nephrolithiasis with obstructing 4-5 mm distal left ureteral stone with mild left hydroureteronephrosis most likely causing the hematuria. This stone can be seen by KUB. Urology consulted and recommended conservative management at this time. Urology to follow-up with the patient in 7-10 days. (9) Hematuria: Code(s): R31.9 - Hematuria, unspecified Status: Acute Assessment and Plan: UA noted. He denies that he was cathed for specimen. Has BPH currently on Flomax. Lifelong nonsmoker. No symptoms of hematuria and dysuria. CT scan as mentioned above to explain the microscopic hematuria. (10) JANIS (obstructive sleep apnea): Code(s): G47.33 - Obstructive sleep apnea (adult) (pediatric) Status: Acute Assessment and Plan: Tolerated CPAP here. Bicarb level elevated probably related to poorly controlled JANIS. ABG showing chronic CO2 retention. Continue CPAP at night and with naps. Will need repeat sleep evaluation. (11) Essential hypertension, benign: Code(s): I10 - Essential (primary) hypertension Status: Acute Assessment and Plan: BP 109/85 on admission. Lisinopril and Proproanolol held. BP remained well controlled during his hospital course. Will continue to hold and resume these medications as tolerated. DS: Summary Hospital Course Reason for hospitalization: 69yo male here for fa
== END 2020-04-25 13:06 | DRG 74 ==
LOC: ANHED 22:27 → ANH3MEDSUR 22:42
PROVIDERS: Admitting Provider Family Medicine; Emergency Provider Emergency Medicine; PCP Student in an Organized Health Care Education/Training Program; Visit Provider Internal Medicine
DX: G62.9 Polyneuropathy, unspecified (principal); N13.2 Hydronephrosis with renal and ureteral calculous obstruction; R29.6 Repeated falls; S91.309A Unspecified open wound, unspecified foot, initial encounter; W01.0XXA Fall on same level from slipping, tripping and stumbling without subsequent striking against object, initial encounter; Z11.59 Encounter for screening for other viral diseases; F31.9 Bipolar disorder, unspecified; E03.9 Hypothyroidism, unspecified; N40.0 Benign prostatic hyperplasia without lower urinary tract symptoms; G47.33 Obstructive sleep apnea (adult) (pediatric); R31.29 Other microscopic hematuria; I10 Essential (primary) hypertension; M19.90 Unspecified osteoarthritis, unspecified site; K21.9 Gastro-esophageal reflux disease without esophagitis; M81.0 Age-related osteoporosis without current pathological fracture; Z96.641 Presence of right artificial hip joint; Z98.1 Arthrodesis status
CPT/HCPCS: 36415; 36600; 70450; 73030; 74018; 74176; 80048; 80076; 81001; 82607; 82746; 82805; 84443; 84484; 85025; 87635; 93005; 96360; 97110; 97161; 97165; 97535; 99285; A9270; C9803; G0378; J7030; U0003

== ENCOUNTER 2020-09-25 08:22 | Outpatient (CLI) | payer MEDICARE, BC, SELFPAY ==
--- NOTE | 2020-09-25 | ECHO_ITS ---
Patient Info Name: Phani Patricia Age: 69 years : 1950 Gender: Male Ht: 73 in Wt: 280 lbs BSA: 2.60 m2 HR: 70 bpm BP: 170 / 93 mmHg Heart Rhythm: Sinus Rhythm Technical Quality: Good Exam Date: 09/25/2020 8:53 AM Exam Location: [facility] Pulmonary Patient Status: Outpatient Admit Date: 09/25/2020 Staff Ordering Physician: AdrianLauro DO Chest Pain Coordinator: Dulce Mir RDCS Attending Provider: AdrianLauro DO Exam Type: CA echo dop color flow w con Study Info Indications R60.0 - Localized edema R06.02 - Shortness of breath Complete two-dimensional, color flow and Doppler transthoracic echocardiogram is performed. Contrast/Agitated Saline Contrast/Ag. Saline: Definity Amount: 1.00 ml Administered By: Jenny Wilson, RN Summary 1. Left ventricular systolic function is normal, estimated at 60-65%. 2. There is mildly increased left ventricular wall thickness. 3. Left ventricular septal wall motion is abnormal with septal motion related to bundle branch block. 4. The left ventricular diastolic function is grade I diastolic dysfunction. 5. Left atrial chamber dimension is mildly enlarged. 6. There is mild tricuspid valve regurgitation. 7. Mild pulmonary hypertension, estimated pulmonary arterial systolic pressure is 36 mmHg. Left Ventricle Left ventricular chamber dimension is normal. Left ventricular systolic function is normal, estimated at 60-65%. There is mildly increased left ventricular wall thickness. Left ventricular septal wall motion is abnormal with septal motion related to bundle branch block. The left ventricular diastolic function is grade I diastolic dysfunction. Right Ventricle Right ventricular chamber dimension is normal. Right ventricular systolic function is normal. Left Atria Left atrial chamber dimension is mildly enlarged. Right Atria Right atrial chamber dimension is normal. Aortic Valve The aortic valve is probable trileaflet. There is mild aortic valve sclerosis. There is no aortic valve stenosis. There is no aortic valve regurgitation. Pulmonic Valve The pulmonic valve is not well visualized. Mitral Valve The mitral valve has normal leaflets. There is trace mitral valve regurgitation. Tricuspid Valve The tricuspid valve leaflets are normal. There is mild tricuspid valve regurgitation. Mild pulmonary hypertension, estimated pulmonary arterial systolic pressure is 36 mmHg. Pericardium/Pleural The pericardium appears normal. There is trivial pericardial effusion. Inferior Vena Cava Normal inferior vena cava with >50% collapse upon inspiration consistent with normal right atrial pressure, 5 mmHg. Aorta The aortic root size at the sinus of Valsalva is normal. There is mild aortic atherosclerosis. Left Ventricular Outflow Tract Name Value Normal LVOT 2D LVOT Diameter 2.05 cm LVOT Doppler LVOT Peak Gradient 4 mmHg LVOT Mean Gradient 3 mmHg LVOT VTI 26.68 cm LVOT VTI
[2020-09-25] MEDS: PERFLUTREN LIPID MICROSPHERES 1.5 ML VIAL DILUTED TO 10 ML TOTAL VOLUME IV PUSH (09:41)
== END 2020-09-25 08:23 | disposition home or self-care (01) ==
LOC: ANHCARD 08:29
PROVIDERS: PCP Student in an Organized Health Care Education/Training Program; Visit Provider Student in an Organized Health Care Education/Training Program
DX: R60.0 Localized edema (principal); R06.02 Shortness of breath; I27.20 Pulmonary hypertension, unspecified; I36.1 Nonrheumatic tricuspid (valve) insufficiency; I51.9 Heart disease, unspecified
CPT/HCPCS: 93306; C8929

== ENCOUNTER → 2021-04-14 03:15 | Outpatient (CLI) | payer MEDICARE, BC, MEDICAID, SELFPAY ==
[2021-04-14 18:14] LABS: SARS-CoV-2 RNA PCR Negative
== END ==
PROVIDERS: PCP Student in an Organized Health Care Education/Training Program; Visit Provider Internal Medicine Critical Care Medicine
DX: Z20.822 Contact with and (suspected) exposure to COVID-19 (principal)
CPT/HCPCS: C9803; U0003; U0005

== ENCOUNTER 2021-04-16 08:10 | Outpatient (CLI) | payer MEDICARE, BC, MEDICAID, SELFPAY ==
--- NOTE | 2021-05-01 21:10 | WPDSLEEPSTUD ---
Sleep Study Date of Study: 04/16/21 Ordering Provider: Nadine Llamas MD Interpreting Physician: Nadine Llamas MD Sleep Study Type: BiPAP Titration Height: 1.85 m Weight: 134.263 kg Body Mass Index: 39.0 Neck Circumference (inches): 18.5 Reason for Sleep Study JANIS, on BiPAP with an elevated AHI, repeat titration is in order Prior testing includes: *Sometime in 1999 a sleep study in the lab with insufficient sleep to diagnose & treat JANIS *03/27/2000-severe JANIS, RDI 81, 77% lowest desaturation, some improvement on CPAP. Anxiety and snoring. There were central apneas on the baseline portion. *07/11/2014- split night study- moderate JANIS AHI 25.8, few centrals, poor tolerance of CPAP and BiPAP *07/31/2014 ASV titration no optimal pressures achieved, improved on 26/01/10 EPAP/minPS/maxPS *08/13/2014- ASV retitration with final pressure Max PS 10, Min PS 5, End expiratory pressure 15 cm. *10/22/2014 - BiPAP /, AHI 7; difficult titration *06/17/2016- results are not able to be retrieved from old system; office note said there were centrals Sleep History Phani Patricia us a 70 year old man with obstructive sleep apnea, and he has been treated with PAP therapy for years. He had sleep studies listed above. This data was mined from the old records with the most recent study in 2015 not available for review. He has been using BiPAP 20/24 according to the office note Dec 31, 2020 in our office. His average usage is 9 hours, and his AHI is 41.1. The actual data is not available so I am including this information from his office visit with Jose Torres APRN. Compliance data from Jul 05, 2020 through Oct 02, 2020 showed that he was on 24/15 with poor tolerance, average usage was 2 hours 38 minutes. He did not complete a recent sleep questionnaire, so much Of the information related to his sleep quality, sleep schedule and need for naps is not available. He is currently living at [facility], a residential facility. [facility] Past Medical History Medical History Anxiety Arthritis Back pain Bilateral ankle fractures Bipolar disorder DDD (degenerative disc disease) Depression Essential hypertension, benign GERD (gastroesophageal reflux disease) Hypothyroidism Kidney stone JANIS (obstructive sleep apnea) Osteoporosis Surgical History Surgical History History of right hip replacement Hx of spinal surgery spinal fusion on L4-L5 Family History Family History Mother Hypertension, Onset Age: 83 Family history of respiratory disorder, Onset Age: 83 Family history of chronic obstructive pulmonary disease, Onset Age: 83 Other Family history of gynecological problem Social History Social History Smoking status: Never smoker Alcohol intake: current Drinks per week: 2 Substance use: never Gender identity (if verbalized by the patient): Male Spiritual care concerns: No Medications Home Medications Medication Instructions Recorded Confirmed Type duloxetine 60 mg capsule,delayed 60 mg PO DAILY #90 cap 09/26/19 12/31/20 Rx release sprinkle Latuda 40 mg PO DAILY 10/20/19 12/31/20 History divalproex 250 mg PO DAILY 10/20/19 12/31/20 History divalproex 500 mg PO DAILY 10/20/19 12/31/20 History tamsulosin 0.4 mg PO DAILY 10/20/19 12/31/20 History acidophilus-pectin, citrus 1 cap PO DAILY 04/23/20 12/31/20 History [Acidophilus Probiotic] buspirone 10 mg PO TID 04/23/20 12/31/20 History cholecalciferol (vitamin D3) 2,000 unit PO DAILY 04/23/20 12/31/20 History [Vitamin D3] furosemide 40 mg PO DAILY 04/23/20 12/31/20 History gabapentin 200 mg PO TID 04/23/20 12/31/20 History levothyroxine 150 mcg PO DAILY 04/23/20 12/31/20 History lisinopril 20 mg PO DAILY 04/23/20 12/31/20 History bruno
[2021-05-01 21:44] VITALS: BMI 39.0
== END 2021-04-17 06:55 | disposition home or self-care (01) ==
LOC: ANHCSM 08:11
PROVIDERS: PCP Student in an Organized Health Care Education/Training Program; Visit Provider Internal Medicine Critical Care Medicine
DX: G47.31 Primary central sleep apnea (principal)
CPT/HCPCS: 95811

== ENCOUNTER 2021-12-01 12:25 | Outpatient (CLI) | payer MEDICARE, BC, MEDICAID, SELFPAY ==
--- NOTE | 2021-12-01 12:58 | ECHO_ITS ---
Patient Info Name: Phani Patricia Age: 71 years : 1950 Gender: Male Ht: 71 in Wt: 290 lbs BSA: 2.62 m2 HR: 81 bpm BP: 148 / 89 mmHg Heart Rhythm: Sinus Rhythm Technical Quality: Fair Exam Date: 12/01/2021 1:23 PM Exam Location: [facility] Pul[facility] Patient Status: Outpatient Admit Date: 12/01/2021 Staff Ordering Physician: Reema Morse PA-C Refrigerating Engineer: Jhon Duarte RDCS, RT Attending Provider: Reema Morse PA-C Exam Type: CA echo doppler color flow Study Info Indications G47.31 - PRIMARY CENTRAL SLEEP APNEA Complete two-dimensional, color flow and Doppler transthoracic echocardiogram is performed. Summary 1. Complete two-dimensional, color flow and Doppler transthoracic echocardiogram is performed. 2. Left ventricular chamber dimension is normal. 3. Left ventricular systolic function is hyperdynamic, estimated at >70%. 4. There is mildly increased left ventricular wall thickness. 5. The left ventricular diastolic function is grade I diastolic dysfunction. 6. Left atrial chamber dimension is mildly enlarged. 7. There is mild tricuspid valve regurgitation. 8. Mild pulmonary hypertension, estimated pulmonary arterial systolic pressure is 42 mmHg. Left Ventricle Left ventricular chamber dimension is normal. Left ventricular systolic function is hyperdynamic, estimated at >70%. There is mildly increased left ventricular wall thickness. The left ventricular diastolic function is grade I diastolic dysfunction. Right Ventricle Right ventricular chamber dimension is normal. Right ventricular systolic function is normal. Left Atria Left atrial chamber dimension is mildly enlarged. Right Atria Right atrial chamber dimension is normal. Atrial Septum Intact interatrial septum visualized by color flow imaging. Aortic Valve The aortic valve is trileaflet. There is mild aortic valve sclerosis. There is no aortic valve stenosis. There is trace aortic valve regurgitation. Pulmonic Valve The pulmonic valve is normal. There is no pulmonic valve stenosis. There is trace pulmonic regurgitation. Mitral Valve The mitral valve has normal leaflets. There is no mitral valve stenosis. There is trace mitral valve regurgitation. Tricuspid Valve The tricuspid valve leaflets are normal. There is no significant tricuspid valve stenosis. There is mild tricuspid valve regurgitation. Mild pulmonary hypertension, estimated pulmonary arterial systolic pressure is 42 mmHg. Pericardium/Pleural The pericardium appears normal. There is no pericardial effusion. Aorta The aortic root size at the sinus of Valsalva is mildly dilated. Left Ventricular Outflow Tract Name Value Normal LVOT 2D LVOT Diameter 2.0 cm LVOT Doppler LVOT Peak Gradient 11 mmHg LVOT Mean Gradient 7 mmHg LVOT VTI 38 cm LVOT VTI/AV VTI Ratio 0.9 LVOT Stroke Volume 115 ml LVOT CO 8.7 l/min LVOT CI
== END 2021-12-01 12:26 | disposition home or self-care (01) ==
PROVIDERS: PCP Student in an Organized Health Care Education/Training Program; Visit Provider Physician Assistant
DX: G47.31 Primary central sleep apnea (principal); I27.20 Pulmonary hypertension, unspecified
CPT/HCPCS: 93306; Q9957

== ENCOUNTER 2021-12-11 08:03 | Outpatient (CLI) | payer MEDICARE, BC, MEDICAID, SELFPAY ==
--- NOTE | 2021-12-23 17:16 | WPDSLEEPSTUD ---
Sleep Study Date of Study: 12/11/21 Ordering Provider: NORMA Gilmore Interpreting Physician: Nadine Llamas MD Sleep Study Type: ASV Height: 1.85 m Weight: 138.346 kg Body Mass Index: 40.2 Neck Circumference (inches): 19 Boaz: 16 Reason for Sleep Study Severe hypersomnolence; poor response to BiPAP therapy with elevated AHI on compliance data, repeat titration requested. * 10/23/2021 - compliance data AHI 60.5 on BiPAP 24/20, central AHI 5.6, obstructive 1.7, unknown apneas 51.1. * 10/13/2021 - BiPAP 24/20 - AHI 45.8; better than it was on CPAP 10 cm. Mask was refitted. * 09/01/2021 - CPAP 10 cm-AHI 81.6 Prior testing: * 04/16/2021 CPAP/BPAP titration insufficient to treat his obstructive sleep apnea; only 25 minutes of sleep. No conclusions can be drawn. He has had multiple studies in the past. He has been wearing BiPAP 24/20 prior to this study with elevated AHI in the 30s. This patient may benefit from auto BiPAP for 2 weeks with a download for evaluation. If he returns for another titration, a sleep aid is a necessity. *06/17/2016- results are not able to be retrieved from old system; office note said there were centrals *10/22/2014 - BiPAP , AHI 7; difficult titration *08/13/2014- ASV retitration with final pressure Max PS 10, Min PS 5, End expiratory pressure 15 cm. *07/31/2014 ASV titration no optimal pressures achieved, improved on 26/01/10 EPAP/minPS/maxPS *07/11/2014- split night study- moderate JANIS AHI 25.8, few centrals, poor tolerance of CPAP and BiPAP *03/27/2000-severe JANIS, RDI 81, 77% lowest desaturation, some improvement on CPAP. Anxiety and snoring. There were central apneas on the baseline portion. *Sometime in 1999 a sleep study in the lab with insufficient sleep to diagnose & treat JANIS Sleep History Phani Patricia is a 70 year old man with obstructive sleep apnea, and he has been treated with PAP therapy for years. He had sleep studies listed above. This data was mined from the old records with the most recent study in 2016 not available for review. He has been using BiPAP according to the office note Dec 31, 2020 in our office. His average usage is 9 hours, and his AHI is 41.1. The actual data is not available so I am including this information from his office visit with Jose Torres APRN. Compliance data from Jul 05, 2020 through Oct 02, 2020 showed that he was on with poor tolerance, average usage was 2 hours 38 minutes. He did not complete a recent sleep questionnaire. Much of the information related to his sleep quality, sleep schedule and need for naps is not available. He is currently living at [facility], a retirement facility. [facility] Past Medical History Medical History Anxiety Arthritis Back pain Bilateral ankle fractures Bipolar disorder DDD (degenerative disc disease) Depression Essential hypertension, benign GERD (gastroesophageal reflux disease) Hypothyroidism Kidney stone JANIS (obstructive sleep apnea) Osteoporosis Surgical History Surgical History History of right hip replacement Hx of spinal surgery spinal fusion on L4-L5 Family History Family History Mother Hypertension, Onset Age: 83 Family history of respiratory disorder, Onset Age: 83 Family history of chronic obstructive pulmonary disease, Onset Age: 83 Other Family history of gynecological problem Social History Social History Smoking status: Never smoker Alcohol intake: current Drinks per week: 2 Substance use: never Gender identity (if verbalized by the patient): Male Spiritual care concerns: No Medications Home Medications Medication Instructions Recorded Confirmed Type duloxetine 60 mg capsule,delayed 60 mg PO DAILY #90 cap 1
[2021-12-24 15:47] VITALS: BMI 40.2
== END 2021-12-12 08:27 | disposition home or self-care (01) ==
LOC: ANHCSM 08:05
PROVIDERS: PCP Student in an Organized Health Care Education/Training Program; Visit Provider Physician Assistant
DX: G47.33 Obstructive sleep apnea (adult) (pediatric) (principal); G47.31 Primary central sleep apnea; Z68.41 Body mass index [BMI] 40.0-44.9, adult
CPT/HCPCS: 95811

== ENCOUNTER 2022-01-15 08:03 | Outpatient (CLI) | payer MEDICARE, BC, MEDICAID, SELFPAY ==
--- NOTE | 2022-01-25 10:44 | WPDSLEEPSTUD ---
Sleep Study Date of Study: 01/15/22 Ordering Provider: Nadine Llamas MD Interpreting Physician: Nadine Llamas MD Sleep Study Type: ASV Height: 1.85 m Weight: 132.449 kg Body Mass Index: 38.5 Neck Circumference (inches): 19 Glide: 14 Reason for Sleep Study Severe hypersomnolence; poor response to BiPAP therapy with elevated AHI on compliance data, repeat titration requested and a recent ASV titration showing that he needs O2 with ASV. * 12/11/2021 - ASV titration which was challenging, showed an acceptable setting of EPAP 15, minimum pressure support 4 cm and maximum pressure support 10 cm using his own medium AirFit F-20 mask and heated humidity. He continued to desaturate and needs O2 added, and this is the reason for the return to the sleep lab Jan 15, 2022. * 10/23/2021 - compliance data AHI 60.5 on BiPAP 24/20, central AHI 5.6, obstructive 1.7, unknown apneas 51.1. * 10/13/2021 - BiPAP 24/20 - AHI 45.8; better than it was on CPAP 10 cm. Mask was refitted. * 09/01/2021 - CPAP 10 cm-AHI 81.6 Prior testing: * 04/16/2021 CPAP/BPAP titration insufficient to treat his obstructive sleep apnea; only 25 minutes of sleep. No conclusions can be drawn. He has had multiple studies in the past. He has been wearing BiPAP 24/20 prior to this study with elevated AHI in the 30s. This patient may benefit from auto BiPAP for 2 weeks with a download for evaluation. If he returns for another titration, a sleep aid is a necessity. *06/17/2016- results are not able to be retrieved from old system; office note said there were centrals *10/22/2014 - BiPAP , AHI 7; difficult titration *08/13/2014- ASV retitration with final pressure Max PS 10, Min PS 5, End expiratory pressure 15 cm. *07/31/2014 ASV titration no optimal pressures achieved, improved on 26/01/10 EPAP/minPS/maxPS *07/11/2014- split night study- moderate JANIS AHI 25.8, few centrals, poor tolerance of CPAP and BiPAP *03/27/2000-severe JANIS, RDI 81, 77% lowest desaturation, some improvement on CPAP. Anxiety and snoring. There were central apneas on the baseline portion. *Sometime in 1999 a sleep study in the lab with insufficient sleep to diagnose & treat JANIS Sleep History Phani Patricia is a 70 year old man with obstructive sleep apnea, and he has been treated with PAP therapy for years. He has had a poor response to BiPAP with an elevated AHI on compliance data, had a recent ASV titration 12/11/2021 and needs to have O2 added to his ASV. He normally sleeps during the day and he had a difficult time sleeping overnight. He had a Lunesta that he took at the beginning of this titration, however had fragmented sleep. He had sleep studies listed above. This data was mined from the old records with the most recent study in 2015 not available for review. He has been using BiPAP according to the office note Dec 31, 2020 in our office. His average usage is 9 hours, and his AHI is 41.1. The actual data is not available so I am including this information from his office visit with Jose Torres APRN. Compliance data from Jul 05, 2020 through Oct 02, 2020 showed that he was on / with poor tolerance, average usage was 2 hours 38 minutes. He did not complete a recent sleep questionnaire. Much of the information related to his sleep quality, sleep schedule and need for naps is not available. [facility] Past Medical History Medical History Anxiety Arthritis Back pain Bilateral ankle fractures Bipolar disorder Central sleep apnea DDD (degenerative disc disease) Depression Essential hypertension, benign GERD (gastroesophageal reflux disease) Hypothyroidism Kidney stone JANIS (obstructive sleep apnea) Osteoporosis Surgical History Surgical History History of right hip replacement Hx of spinal surgery spinal fusion on L4-L5 Family History Family History (Reviewed 01/25/22 @ 10:54 by Nadine Llamas
[2022-01-25 17:20] VITALS: BMI 38.5
== END 2022-01-16 07:30 | disposition home or self-care (01) ==
LOC: ANHCSM 01-18 08:03
PROVIDERS: PCP Student in an Organized Health Care Education/Training Program; Visit Provider Internal Medicine Critical Care Medicine
DX: G47.31 Primary central sleep apnea (principal); G47.61 Periodic limb movement disorder; E66.01 Morbid (severe) obesity due to excess calories; Z68.38 Body mass index [BMI] 38.0-38.9, adult
CPT/HCPCS: 95811

== ENCOUNTER 2022-02-02 10:00 | Outpatient (CLI) | payer MEDICARE, BC, MEDICAID, SELFPAY | END 2022-02-02 10:01 | disposition home or self-care (01) | PROVIDERS: PCP Student in an Organized Health Care Education/Training Program; Visit Provider Internal Medicine Critical Care Medicine | DX: D50.9 Iron deficiency anemia, unspecified (principal); G47.61 Periodic limb movement disorder | CPT/HCPCS: 36415; 82728 ==

== ENCOUNTER 2022-02-08 01:26 | Day surgery (SDC) | payer MEDICARE, BC, MEDICAID, SELFPAY ==
[2022-01-28 13:36] VITALS: BMI 39.2
[2022-02-08 08:08] VITALS: BP 185/76; PULSE 99; RESP 20; TEMP 35.9; O2SAT 96
[2022-02-08] MEDS: LACTATED RINGERS 1,000 ML 150 ML IV CONT (08:18)
--- NOTE | 2022-02-08 08:39 | WPDANESEPPF ---
Anes - Initial Pre Proc Eval Procedure: Operation Date: 02/08/22 09:15 Proposed Procedures p Screening Colonoscopy - Brannon He MD Date/Time: 02/08/22 08:39 Surgeon: Barnnon He MD Pre Op Diagnosis: family hx of colon polyps Patient Data Age: 71 Gender: M Height: 1.85 m Weight: 132.4 kg Last Vital Signs Temp 35.9 C L 02/08/22 08:08 Pulse 99 02/08/22 08:08 Resp 20 02/08/22 08:08 BP 185/76 H 02/08/22 08:08 Pulse Ox 96 02/08/22 08:08 Allergies Allergy/AdvReac Type Severity Reaction Status Date / Time No Known Allergies Allergy Verified 02/08/22 08:07 Home Medications Medication Instructions Recorded Confirmed Type duloxetine 60 mg capsule,delayed 60 mg PO DAILY #90 cap 09/26/19 02/08/22 Rx release sprinkle Latuda 40 mg PO DAILY 10/20/19 02/08/22 History divalproex 250 mg PO DAILY 10/20/19 02/08/22 History divalproex 500 mg PO DAILY 10/20/19 02/08/22 History tamsulosin 0.4 mg PO DAILY 10/20/19 02/08/22 History acidophilus-pectin, citrus 1 cap PO DAILY 04/23/20 02/08/22 History [Acidophilus Probiotic] buspirone 10 mg PO TID 04/23/20 02/08/22 History cholecalciferol (vitamin D3) 2,000 unit PO DAILY 04/23/20 02/08/22 History [Vitamin D3] furosemide 40 mg PO DAILY 04/23/20 02/08/22 History gabapentin 200 mg PO TID 04/23/20 02/08/22 History levothyroxine 150 mcg PO DAILY 04/23/20 02/08/22 History lisinopril 20 mg PO DAILY 04/23/20 02/08/22 History melatonin 10 mg PO HS 04/23/20 02/08/22 History polyethylene glycol 3350 [Miralax] 17 g PO DAILY 04/23/20 02/08/22 History propranolol 20 mg PO Q12H 04/23/20 02/08/22 History simvastatin 20 mg PO HS 04/23/20 02/08/22 History ferrous sulfate 325 mg (65 mg 325 mg PO DAILY 90 Days #90 tablet 02/02/22 02/08/22 Rx iron) tablet Patient hx anesthesia problems: none Family hx anesthesia problems: none Results Review: All pre-operative results and documents have been reviewed as part of the pre-operative evaluation. [facility] Past Medical History Medical History Anxiety Arthritis Back pain Bilateral ankle fractures Bipolar disorder Central sleep apnea DDD (degenerative disc disease) Depression Essential hypertension, benign GERD (gastroesophageal reflux disease) Hypothyroidism Kidney stone JANIS (obstructive sleep apnea) Osteoporosis Surgical History Surgical History History of right hip replacement Hx of spinal surgery spinal fusion on L4-L5 Family History Family History Mother Hypertension, Onset Age: 83 Family history of respiratory disorder, Onset Age: 83 Family history of chronic obstructive pulmonary disease, Onset Age: 83 Other Family history of gynecological problem Social History Social History Smoking status: Never smoker Alcohol intake: former Drinks per week: 2 Alcohol use details: on occasion Substance use: never Substance use type: does not use Living arrangements: assisted living Gender identity (if verbalized by the patient): Male Spiritual care concerns: No Anes - Eval Final PreProcedure Day of Procedure 02/08/22 08:39 Patient weight: obese Heart: regular rate and rhythm Lungs: clear to auscultation and normal air movement Airway: Mallampati scale class II Neurological: alert and oriented Last oral intake: >/= 8 hours ASA classification: III Emergent: no Anesthetic plan: proceed Anesthesia type and monitoring: general GIVS Results Review: All pre-operative results and documents have been reviewed as part of the pre-operative evaluation. Informed Consent: The patient's anesthetic plan and its attendant risks and benefits were discussed with the patient/family/POA. Questions were solicited and answers provided to the satisfaction of the pa
--- NOTE | 2022-02-08 08:48 | WPDGICN ---
Assessment and Plan Assessment and plan (1) Family history of colonic polyps: Code(s): Z83.71 - Family history of colonic polyps Status: Acute Assessment and Plan: Patient's brother had colon polyps and 2 uncles have had colon cancer. For this reason service screening colonoscopy is advised performed today. Consider follow-up colonoscopy at 5 year intervals in the future. GI Consult Note Consult date/time: 02/08/22 08:48 HPI: Phani Patricia is a 71 year old male Presents for screening colonoscopy. Patient reports that his current weight appetite and bowel movements are normal. He denies abdominal pain. He has had no bleeding. Family history is significant his brother had colon polyps 2 uncles have had colon cancer. Patient's last colonoscopy 6 years ago was unremarkable. Patient presents today for neoplasia screening. Review of Systems Review of Systems: All systems reviewed & are unremarkable except as noted in HPI and below PMFSH Past Medical History Medical History Anxiety Arthritis Back pain Bilateral ankle fractures Bipolar disorder Central sleep apnea DDD (degenerative disc disease) Depression Essential hypertension, benign GERD (gastroesophageal reflux disease) Hypothyroidism Kidney stone JANIS (obstructive sleep apnea) Osteoporosis Surgical History Surgical History History of right hip replacement Hx of spinal surgery spinal fusion on L4-L5 Family History Family History Mother Hypertension, Onset Age: 83 Family history of respiratory disorder, Onset Age: 83 Family history of chronic obstructive pulmonary disease, Onset Age: 83 Other Family history of gynecological problem Social History Social History Smoking status: Never smoker Alcohol intake: former Drinks per week: 2 Alcohol use details: on occasion Substance use: never Substance use type: does not use Living arrangements: assisted living Gender identity (if verbalized by the patient): Male Spiritual care concerns: No Meds Home Medications and Allergies Home Medications Medication Instructions Recorded Confirmed Type duloxetine 60 mg capsule,delayed 60 mg PO DAILY #90 cap 09/26/19 02/08/22 Rx release sprinkle Latuda 40 mg PO DAILY 10/20/19 02/08/22 History divalproex 250 mg PO DAILY 10/20/19 02/08/22 History divalproex 500 mg PO DAILY 10/20/19 02/08/22 History tamsulosin 0.4 mg PO DAILY 10/20/19 02/08/22 History acidophilus-pectin, citrus 1 cap PO DAILY 04/23/20 02/08/22 History [Acidophilus Probiotic] buspirone 10 mg PO TID 04/23/20 02/08/22 History cholecalciferol (vitamin D3) 2,000 unit PO DAILY 04/23/20 02/08/22 History [Vitamin D3] furosemide 40 mg PO DAILY 04/23/20 02/08/22 History gabapentin 200 mg PO TID 04/23/20 02/08/22 History levothyroxine 150 mcg PO DAILY 04/23/20 02/08/22 History lisinopril 20 mg PO DAILY 04/23/20 02/08/22 History melatonin 10 mg PO HS 04/23/20 02/08/22 History polyethylene glycol 3350 [Miralax] 17 g PO DAILY 04/23/20 02/08/22 History propranolol 20 mg PO Q12H 04/23/20 02/08/22 History simvastatin 20 mg PO HS 04/23/20 02/08/22 History ferrous sulfate 325 mg (65 mg 325 mg PO DAILY 90 Days #90 tablet 02/02/22 02/08/22 Rx iron) tablet Allergies Allergy/AdvReac Type Severity Reaction Status Date / Time No Known Allergies Allergy Verified 02/08/22 08:07 Vital Signs Vital Signs - 24 hr 02/08/22 08:08 Temperature 96.6 F L Pulse Rate 99 Respiratory Rate 20 Blood Pressure 185/76 H Pulse Oximetry 96 Exam Narrative: Physical exam reveals patient to be alert. Vital signs stable. HEENT exam is unremarkable. Patient is anicteric. Lungs are clear to auscultation and percussion. Heart is witho
[2022-02-08 09:17] VITALS: BP 110/64; PULSE 69; RESP 17; O2SAT 95
[2022-02-08 09:27] VITALS: BP 114/68; PULSE 68; RESP 17; O2SAT 93
[2022-02-08 09:37] VITALS: BP 127/72; PULSE 78; RESP 13; O2SAT 95
== END 2022-02-08 09:51 | disposition home or self-care (01) ==
PROVIDERS: PCP Student in an Organized Health Care Education/Training Program; Visit Provider Internal Medicine Gastroenterology
PROC: 0DJD8ZZ Inspection of Lower Intestinal Tract, Via Natural or Artificial Opening Endoscopic (ICD-10-PCS; CPT 45378; principal; 2022-02-08 09:15)
DX: Z12.11 Encounter for screening for malignant neoplasm of colon (principal); D12.2 Benign neoplasm of ascending colon; Z83.71 Family history of colonic polyps; M19.90 Unspecified osteoarthritis, unspecified site; G47.33 Obstructive sleep apnea (adult) (pediatric); M81.0 Age-related osteoporosis without current pathological fracture; F41.8 Other specified anxiety disorders; E03.9 Hypothyroidism, unspecified; F31.9 Bipolar disorder, unspecified; K21.9 Gastro-esophageal reflux disease without esophagitis; E66.9 Obesity, unspecified; Z68.38 Body mass index [BMI] 38.0-38.9, adult; Z98.1 Arthrodesis status
CPT/HCPCS: 45385; 88305; J2704; J7120

== ENCOUNTER 2022-03-02 09:54 | Outpatient (CLI) | payer MEDICARE, BC, MEDICAID, SELFPAY ==
--- NOTE | ~2022-03-02 | XR_ITS ---
EXAMINATION: XR hip LT min 2V DATE: 03/02/2022 10:14 INDICATION: Left hip pain. TECHNIQUE: 2 views of left hip were obtained. COMPARISON: Left hip radiographs 07/28/2017 FINDINGS: Bone alignment is normal. No fracture. There is severe left hip osteoarthritis. Partially v isualized is a total right hip arthroplasty. IMPRESSION: 1. Worsened severe left hip osteoarthritis. Reviewed, dictated and finalized at location B.
== END 2022-03-02 09:55 | disposition home or self-care (01) ==
LOC: ANHIMG 09:57
PROVIDERS: PCP Student in an Organized Health Care Education/Training Program; Visit Provider Nurse Practitioner Family
DX: M16.12 Unilateral primary osteoarthritis, left hip (principal)
CPT/HCPCS: 73502

== ENCOUNTER 2022-03-27 14:10 | Emergency (ER) | payer MEDICARE, BC, MEDICAID, SELFPAY ==
--- NOTE | ~2022-03-27 | CT_ITS ---
CT OF LEFT HIP EXAMINATION: CT hip LT wo con DATE: 03/27/2022 15:18 INDICATION: Hip pain TECHNIQUE: Computed tomography (CT) of the left hip was performed without intravenous contrast. Autom ated exposure control and iterative reconstruction technique were employed. The dose-length product w as 963.08 mGy-cm. COMPARISON: X-ray left hip 03/02/2022 FINDINGS: Limitations: None Bones: Severe L5-S1 degenerative disc disease. Severe superior joint space narrowing subchondral scle rosis and subchondral cyst formation in the left hip, with surrounding osteophyte formation. No fract ure or dislocation. Soft Tissues:Mild fatty atrophy of the gluteal muscles. Severe fatty atrophy of the adductor [place], semimembranosus, and semitendinosus muscles Fluid: Small volume left hip effusion IMPRESSION: No acute osseous finding in the left hip. Severe left hip osteoarthritis. Severe degenerative disc di sease at L5-S1. Severe fatty atrophy of adductor and flexor muscles. Reviewed, dictated and finalized at location K. IMPRESSION: No acute osseous finding in the left hip. Severe left hip osteoarthritis. Sever e degenerative disc disease at L5-S1. Severe fatty atrophy of adductor and flex or muscles.
--- NOTE | 2022-03-27 14:12 | ED.GENADULT ---
HPI - General Adult General Chief complaint: Unspecified Stated complaint: left hip pain Time Seen by Provider: 03/27/22 14:34 History of Present Illness HPI narrative: 71-year-old male presents to the emergency room with left hip pain for approximately 3 weeks. Patient states that he was evaluated a pain management physician approximately 3 weeks ago, and had plain films of his left hip completed. Patient states he was never told of the results. At that time he received a intra-articular cortisone injection, which she has not received any relief from. Patient states the hip pain is worse with ambulation and with internal rotation. Patient denies any saddle anesthesia. Patient denies any injury or trauma. Patient denies any previous history of daily left hip repair Related Data Home Medications Medication Instructions Recorded Confirmed Latuda 40 mg PO DAILY 10/20/19 03/02/22 divalproex 250 mg PO DAILY 10/20/19 03/02/22 divalproex 500 mg PO DAILY 10/20/19 03/02/22 tamsulosin 0.4 mg PO DAILY 10/20/19 03/02/22 acidophilus-pectin, citrus 1 cap PO DAILY 04/23/20 03/02/22 [Acidophilus Probiotic] buspirone 10 mg PO TID 04/23/20 03/02/22 cholecalciferol (vitamin D3) 2,000 unit PO DAILY 04/23/20 03/02/22 [Vitamin D3] furosemide 40 mg PO DAILY 04/23/20 03/02/22 gabapentin 200 mg PO TID 04/23/20 03/02/22 levothyroxine 150 mcg PO DAILY 04/23/20 03/02/22 lisinopril 20 mg PO DAILY 04/23/20 03/02/22 melatonin 10 mg PO HS 04/23/20 03/02/22 polyethylene glycol 3350 [Miralax] 17 g PO DAILY 04/23/20 03/02/22 propranolol 20 mg PO Q12H 04/23/20 03/02/22 simvastatin 20 mg PO HS 04/23/20 03/02/22 Allergies Allergy/AdvReac Type Severity Reaction Status Date / Time No Known Allergies Allergy Verified 03/27/22 15:23 Review of Systems Review of Systems: CONSTITUTIONAL: Denies fever, chills, or sweats. EYES: Denies visual changes, redness, or discharge. ENT: Denies rhinorrhea, congestion, sore throat, or otalgia. CARDIOVASCULAR: Denies chest pain, palpitations, or edema. RESPIRATORY: Denies cough or dyspnea. GASTROINTESTINAL: Denies abdominal pain, nausea, vomiting, or diarrhea. GENITOURINARY: Denies dysuria or hematuria. SKIN: Denies rash or itching. MUSCULOSKELETAL: Reports left hip pain NEUROLOGIC: Denies headache, numbness, dizziness, or weakness. PSYCHIATRIC: Denies anxiety or depression. [facility] Past Medical History Medical History Anxiety Arthritis Back pain Bilateral ankle fractures Bipolar disorder Central sleep apnea DDD (degenerative disc disease) Depression Essential hypertension, benign GERD (gastroesophageal reflux disease) Hypothyroidism Kidney stone JANIS (obstructive sleep apnea) Osteoporosis Surgical History Surgical History History of right hip replacement Hx of spinal surgery spinal fusion on L4-L5 Family History Family History Mother Hypertension, Onset Age: 83 Family history of respiratory disorder, Onset Age: 83 Family history of chronic obstructive pulmonary disease, Onset Age: 83 Other Family history of gynecological problem Social History Social History Smoking status: Former smoker Alcohol intake: former Drinks per week: 2 Alcohol use details: on occasion Substance use: never Substance use type: does not use Gender identity (if verbalized by the patient): Male Spiritual care concerns: No Exam Narrative: GENERAL: Well-appearing, well-nourished, and in no acute distress. HEAD: Normocephalic, atraumatic. EYES: PERRLA and EOMI. CHEST: Clear to auscultation. No respiratory distress. No wheezes rales or rhonchi HEART: Regular rate and rhythm. No murmur heard. Normal peripheral pulses. ABDOMEN: Soft, nontender, nondistended, normal act
[2022-03-27 14:14] VITALS: BP 141/89; PULSE 93; RESP 16; TEMP 36; O2SAT 98
[2022-03-27 17:08] VITALS: BP 128/99
== END 2022-03-27 17:09 | disposition home or self-care (01) ==
PROVIDERS: Emergency Provider Nurse Practitioner Family; PCP Student in an Organized Health Care Education/Training Program
DX: M16.12 Unilateral primary osteoarthritis, left hip (principal); I10 Essential (primary) hypertension; E03.9 Hypothyroidism, unspecified; K21.9 Gastro-esophageal reflux disease without esophagitis; M81.0 Age-related osteoporosis without current pathological fracture; G47.33 Obstructive sleep apnea (adult) (pediatric); F41.9 Anxiety disorder, unspecified; F31.9 Bipolar disorder, unspecified; Z87.442 Personal history of urinary calculi; Z96.641 Presence of right artificial hip joint; Z98.1 Arthrodesis status; M51.37 Other intervertebral disc degeneration, lumbosacral region
CPT/HCPCS: 73700; 99284

== ENCOUNTER 2022-04-06 16:50 | Outpatient (CLI) | payer MEDICARE, BC, MEDICAID, SELFPAY | END 2022-04-06 16:51 | disposition home or self-care (01) | LOC: ANHLAB 16:55 | PROVIDERS: PCP Student in an Organized Health Care Education/Training Program; Visit Provider Physician Assistant | DX: D64.9 Anemia, unspecified (principal) | CPT/HCPCS: 36415; 82728 ==

== ENCOUNTER 2022-06-01 09:21 | Outpatient (CLI) | payer MEDICARE, BC, MEDICAID, SELFPAY ==
[2022-06-01 10:15] LABS: Basophils Absolute Auto 0.1 K/mm3 (0.0-0.1); Basophils Percent Auto 0.6 % (0.2-1.2); Eosinophils Absolute Auto 0.2 K/mm3 (0-0.3); Eosinophils Percent Auto 2.3 % (0-4.4); Hemoglobin 12.7 g/dL (14.0-18.0); Immature Granulocyte Absolute 0.03 K/mm3 (0.00-0.031); Immature Granulocyte Percent A 0.3 % (0-0.5); Lymphocytes Absolute Auto 2.08 K/mm3 (0.9-3.2); Lymphocytes Percent Auto 23.3 % (18.3-44.2); Mean Corpuscular HGB Conc 33.4 g/dl (32-36); Mean Corpuscular Hemoglobin 29.1 pg (26-34); Mean Platelet Volume 9.1 fl (7.4-10.4); Monocytes Absolute Auto 1.1 K/mm3 (0.1-0.6); Monocytes Percent Auto 12.2 % (2.6-8.5); Neutrophils Absolute Auto 5.5 K/mm3 (1.3-6.7); Neutrophils Percent Auto 61.3 % (45.5-73.1); Platelet Count Result 255 k/mm3 (150-375); Red Blood Count 4.37 M/mm3 (4.6-6.20); Red Cell Distribution Width 14.7 % (11.5-14.5); White Blood Count 8.9 K/mm3 (4.5-10.0)
[2022-06-01 11:21] LABS: Vitamin D 25 Hydroxy 67.4 ng/mL
[2022-06-01 17:33] LABS: Alanine Aminotransferase 10 U/L (6-50); Albumin Level 4.2 g/dL (3.5-5.1); Alkaline Phosphatase 89 U/L (38-126); Anion Gap 7 mmol/L (8-16); Aspartate Amino Transferase 31 U/L (17-59); Bilirubin,Total 0.5 mg/dL (0.2-1.3); Blood Urea Nitrogen 26 mg/dL (9-20); Calcium 8.8 mg/dL (8.4-10.2); Carbon Dioxide 33 mmol/L (22-30); Chloride 94 mmol/L (98-107); Cholesterol 150 mg/dL (0-200); Estimated Glomerular Filt Rate 50; Glucose 91 mg/dL (65-110); HDL Direct 35 mg/dL; Potassium 4.7 mmol/L (3.4-5.0); Sodium 134 mmol/L (137-145); Triglycerides 156 mg/dL (<150)
[2022-06-01 17:34] LABS: LDL Cholesterol Direct 65 mg/dL
[2022-06-01 17:54] LABS: Prostate Specific Antigen < 0.1 ng/mL (< OR = 4.0)
[2022-06-02 07:49] LABS: Free T4 Free Thyroxine Reflex 1.52 ng/dL (0.78-2.19)
[2022-06-02 08:52] LABS: Total Triiodothyronine (T3) 0.93 NG/ML (0.97-1.69)
== END 2022-06-01 09:22 | disposition home or self-care (01) ==
LOC: ANHLAB 09:29
PROVIDERS: PCP Student in an Organized Health Care Education/Training Program; Visit Provider Student in an Organized Health Care Education/Training Program
DX: Z12.5 Encounter for screening for malignant neoplasm of prostate (principal); E55.9 Vitamin D deficiency, unspecified; E78.5 Hyperlipidemia, unspecified; I25.118 Atherosclerotic heart disease of native coronary artery with other forms of angina pectoris; F31.9 Bipolar disorder, unspecified; I11.0 Hypertensive heart disease with heart failure; I50.32 Chronic diastolic (congestive) heart failure; Z00.00 Encounter for general adult medical examination without abnormal findings
CPT/HCPCS: 36415; 80053; 80061; 82306; 84153; 84439; 84443; 84480; 85025; G0103

== ENCOUNTER 2022-07-20 09:28 | Outpatient (CLI) | payer MEDICARE, BC, MEDICAID, SELFPAY ==
[2022-07-20 10:53] LABS: Anion Gap 10 mmol/L (8-16); Blood Urea Nitrogen 23 mg/dL (9-20); Calcium 9.3 mg/dL (8.4-10.2); Carbon Dioxide 29 mmol/L (22-30); Chloride 93 mmol/L (98-107); Estimated Glomerular Filt Rate 55; Glucose 89 mg/dL (65-110); Potassium 4.3 mmol/L (3.4-5.0); Sodium 132 mmol/L (137-145)
[2022-07-20 11:25] LABS: Free T4 Free Thyroxine 1.64 ng/mL (0.78-2.19)
== END 2022-07-20 09:29 | disposition home or self-care (01) ==
LOC: ANHLAB 09:33
PROVIDERS: PCP Student in an Organized Health Care Education/Training Program; Visit Provider Student in an Organized Health Care Education/Training Program
DX: I10 Essential (primary) hypertension (principal); E03.8 Other specified hypothyroidism
CPT/HCPCS: 36415; 80048; 84439; 84443

== ENCOUNTER 2022-08-10 09:27 | Outpatient (CLI) | payer MEDICARE, BC, MEDICAID, SELFPAY ==
[2022-08-10 10:05] LABS: Anion Gap 11 mmol/L (8-16); Blood Urea Nitrogen 21 mg/dL (9-20); Calcium 9.4 mg/dL (8.4-10.2); Carbon Dioxide 30 mmol/L (22-30); Chloride 99 mmol/L (98-107); Estimated Glomerular Filt Rate 55; Glucose 96 mg/dL (65-110); Potassium 4.2 mmol/L (3.4-5.0); Sodium 140 mmol/L (137-145)
== END 2022-08-10 09:28 | disposition home or self-care (01) ==
LOC: ANHLAB 09:31
PROVIDERS: PCP Student in an Organized Health Care Education/Training Program; Visit Provider Student in an Organized Health Care Education/Training Program
DX: I50.32 Chronic diastolic (congestive) heart failure (principal); E78.5 Hyperlipidemia, unspecified; I25.118 Atherosclerotic heart disease of native coronary artery with other forms of angina pectoris
CPT/HCPCS: 36415; 80048

== ENCOUNTER 2022-09-10 07:22 | Outpatient (CLI) | payer MEDICARE, BC, MEDICAID, SELFPAY ==
--- NOTE | 2022-10-03 21:04 | WPDSLEEPSTUD ---
Sleep Study Date of Study: 09/10/22 Ordering Provider: NORMA Gilmore Interpreting Physician: Nadine Llamas MD Sleep Study Type: ASV Height: 1.83 m Weight: 124.738 kg Body Mass Index: 37.3 Neck Circumference (inches): 19 Leonard: 5 Reason for Sleep Study Severe hypersomnolence; poor response to BiPAP therapy with elevated AHI on compliance data, repeat titration requested and a recent ASV titration showing that he needs O2 with ASV. * 01/25/2022 - ASV titration; optimal pressure of EPAP 15, minimum? pressure support 4 cm and maximum pressure support 10 cm with 5 L of oxygen.? * 12/11/2021 - ASV titration which was challenging, showed an acceptable setting of EPAP 15, minimum pressure support 4 cm and maximum pressure support 10 cm using his own medium AirFit F-20 mask and heated humidity.? He continued to desaturate and needs O2 added, and this is the reason for the return to the sleep lab Jan 15, 2022.? * 10/23/2021 - compliance data AHI 60.5 on BiPAP 24/20, central AHI 5.6, obstructive 1.7, unknown apneas 51.1. * 10/13/2021 - BiPAP 24/20 - AHI 45.8; better than it was on CPAP 10 cm. Mask was refitted. * 09/01/2021 - CPAP 10 cm-AHI 81.6 Prior testing: * 04/16/2021 CPAP/BPAP titration insufficient to treat his obstructive sleep apnea; only 25 minutes of sleep.? No conclusions can be drawn.? He has had multiple studies in the past. He has been wearing BiPAP 24/20 prior to this study with elevated AHI in the 30s. This patient may benefit from auto BiPAP for 2 weeks with a download for evaluation. If he returns for another titration, a sleep aid is a necessity. *06/17/2016- results are not able to be retrieved from old system; office note said there were centrals *10/22/2014 - BiPAP , AHI 7; difficult titration *08/13/2014- ASV retitration with final pressure Max PS 10, Min PS 5, End expiratory pressure 15 cm. *07/31/2014 ASV titration no optimal pressures achieved, improved on 26/01/10 EPAP/minPS/maxPS *07/11/2014- split night study- moderate JANIS AHI 25.8, few centrals, poor tolerance of CPAP and BiPAP *03/27/2000-severe JANIS, RDI 81, 77% lowest desaturation, some improvement on CPAP. Anxiety and snoring. There were central apneas on the baseline portion. *Sometime in 1999 a sleep study in the lab with insufficient sleep to diagnose & treat JANIS Sleep History Phani Patricia is a 72 year old man with obstructive sleep apnea treated with PAP therapy for years. He developed central sleep apnea, had prior ASV titraitons, however on the most recent study, he also required oxygen. This was not ordered in the 30 day window. He returns for repeat study with ASV to have O2 titrated. He has had a poor response to BiPAP with an elevated AHI on compliance data, remains completely compliant with treatment however gets no benefit. He normally sleeps during the day and he had a difficult time sleeping overnight.? He had fragmented sleep, took a nap on the day of the study, and did not have a sleep aid per the network control technician's notes. He had sleep studies listed above. This data was mined from the old records with the most recent study in 2016 not available for review. He has been using BiPAP according to the office note Dec 31, 2020 in our office. His average usage is 9 hours, and his AHI is 41.1. The actual data is not available so I am including this information from his office visit with Jose Torres APRN. Compliance data from Jul 05, 2020 through Oct 02, 2020 showed that he was on with poor tolerance, average usage was 2 hours 38 minutes. [facility] Past Medical History Medical History Anxiety Arthritis Back pain Bilateral ankle fractures Bipolar disorder Central sleep apnea DDD (degenerative disc disease) Depression Essential hypertension, benign GERD (gastroesophageal reflux disease) Hypothyroidism Kidney stone JANIS (obstructive sleep apnea) Osteoporosis Surgical History Surgical History (Rev
[2022-10-04 11:08] VITALS: BMI 37.3
--- NOTE | 2023-01-18 14:27 | SLEEP ---
PT IS HAVING HOME OXIMETRY DONE
== END 2022-09-11 06:56 | disposition home or self-care (01) ==
PROVIDERS: PCP Student in an Organized Health Care Education/Training Program; Visit Provider Physician Assistant
DX: G47.31 Primary central sleep apnea (principal); G47.33 Obstructive sleep apnea (adult) (pediatric); Z68.27 Body mass index [BMI] 27.0-27.9, adult
CPT/HCPCS: 95811

== ENCOUNTER 2022-11-23 12:17 | Outpatient (CLI) | payer MEDICARE, BC, MEDICAID, SELFPAY ==
[2022-11-23 13:00] VITALS: PULSE 85; O2SAT 98
[2022-11-23 13:05] VITALS: PULSE 99; O2SAT 95
[2022-11-23 13:15] VITALS: PULSE 98; O2SAT 98
--- NOTE | 2022-11-23 13:22 | HOMEO2EVAL ---
Evaluation was performed at [facility] Home Oxygen Evaluation RC: Home Oxygen (O2) Evaluation Start: 11/23/22 13:19 Freq: Status: Active Protocol: RPE Activity Type Activity Date Activity User E-sign Co-sign Detail Recorded Client Recorded Date Recorded By Document 11/23/22 13:00 [facility] [id number] 11/23/22 13:21 [facility] Document 11/23/22 13:05 [facility] [id number] 11/23/22 13:21 [facility] Document 11/23/22 13:15 [facility] [id number] 11/23/22 13:21 [facility] 11/23/22 11/23/22 11/23/22 13:00 13:05 13:15 Home O2 Evaluation [Oxygen] -Test Phase Resting Exercise Resting -Oxygen Delivery Room Air Room Air Room Air [Pulse Oximetry] -Pulse Oximetry (90-100 %) 98 95 98 [Pulse Rate] -Pulse Rate (60-100 beats/min) 85 99 98 [Comments] -Home Oxygen Evaluation Comments Patient does not require home oxygen [Charges] -Treatment Charges O2 Evaluation - Outpatient
[2022-11-23 14:38] LABS: Alanine Aminotransferase 10 U/L (6-50); Albumin Level 4.1 g/dL (3.5-5.1); Alkaline Phosphatase 91 U/L (38-126); Anion Gap 7 mmol/L (8-16); Aspartate Amino Transferase 23 U/L (17-59); Bilirubin,Total 0.3 mg/dL (0.2-1.3); Blood Urea Nitrogen 24 mg/dL (9-20); Calcium 9.1 mg/dL (8.4-10.2); Carbon Dioxide 33 mmol/L (22-30); Chloride 100 mmol/L (98-107); Estimated Glomerular Filt Rate 37; Glucose 96 mg/dL (65-110); Potassium 4.8 mmol/L (3.4-5.0); Sodium 140 mmol/L (137-145)
[2022-11-23 15:08] LABS: Free T4 Free Thyroxine 1.55 ng/mL (0.78-2.19)
[2022-11-28 02:28] LABS: Thyroxin Binding Globulin 22.4 mcg/mL (12.7-25.1)
== END 2022-11-23 12:18 | disposition home or self-care (01) ==
PROVIDERS: PCP Student in an Organized Health Care Education/Training Program; Referring Provider Student in an Organized Health Care Education/Training Program; Visit Provider Physician Assistant
DX: E03.8 Other specified hypothyroidism (principal); I10 Essential (primary) hypertension
CPT/HCPCS: 36415; 80053; 84439; 84442; 84443; 94618

== ENCOUNTER 2023-02-22 08:44 | Outpatient (CLI) | payer MEDICARE, BC, MEDICAID, SELFPAY ==
[2023-02-22 09:29] LABS: Basophils Absolute Auto 0.1 K/mm3 (0.0-0.1); Basophils Percent Auto 0.9 % (0.2-1.2); Eosinophils Absolute Auto 0.2 K/mm3 (0-0.3); Eosinophils Percent Auto 2.2 % (0-4.4); Hematocrit 43.3 % (42.0-52.0); Hemoglobin 14.2 g/dL (14.0-18.0); Immature Granulocyte Absolute 0.03 K/mm3 (0.00-0.031); Immature Granulocyte Percent A 0.4 % (0-0.5); Lymphocytes Absolute Auto 1.79 K/mm3 (0.9-3.2); Lymphocytes Percent Auto 24.1 % (18.3-44.2); Mean Corpuscular HGB Conc 32.8 g/dl (32-36); Mean Corpuscular Hemoglobin 29.3 pg (26-34); Mean Corpuscular Volume 89.3 fl (80-100); Mean Platelet Volume 9.4 fl (7.4-10.4); Monocytes Absolute Auto 0.7 K/mm3 (0.1-0.6); Monocytes Percent Auto 9.3 % (2.6-8.5); Neutrophils Absolute Auto 4.7 K/mm3 (1.3-6.7); Neutrophils Percent Auto 63.1 % (45.5-73.1); Platelet Count Result 260 k/mm3 (150-375); Red Blood Count 4.85 M/mm3 (4.6-6.20); Red Cell Distribution Width 13.2 % (11.5-14.5); White Blood Count 7.4 K/mm3 (4.5-10.0)
[2023-02-22 09:43] LABS: Alanine Aminotransferase 10 U/L (6-50); Albumin Level 4.6 g/dL (3.5-5.1); Alkaline Phosphatase 96 U/L (38-126); Anion Gap 8 mmol/L (8-16); Aspartate Amino Transferase 25 U/L (17-59); Bilirubin,Total 0.5 mg/dL (0.2-1.3); Blood Urea Nitrogen 26 mg/dL (9-20); Calcium 9.5 mg/dL (8.4-10.2); Carbon Dioxide 32 mmol/L (22-30); Chloride 97 mmol/L (98-107); Estimated Glomerular Filt Rate 60; Glucose 106 mg/dL (65-110); Potassium 4.3 mmol/L (3.4-5.0); Sodium 137 mmol/L (137-145)
== END 2023-02-22 08:45 | disposition home or self-care (01) ==
PROVIDERS: PCP Student in an Organized Health Care Education/Training Program; Visit Provider Student in an Organized Health Care Education/Training Program
DX: F31.9 Bipolar disorder, unspecified (principal)
CPT/HCPCS: 36415; 80053; 85025

== ENCOUNTER 2023-03-29 10:02 | Outpatient (CLI) | payer MEDICARE, BC, MEDICAID, SELFPAY ==
--- NOTE | ~2023-03-29 | US_ITS ---
US retroperitoneal comp 03/29/2023 10:48 Procedure: Realtime transabdominal ultrasound of the kidneys and bladder. Indication: Renal cysts Comparison: 02/21/2015 Findings: Renal echotexture is normal bilaterally without hydronephrosis, or renal calculus. There is a possible left renal mass versus dromedary hump. There is mild right renal cortical thinning. The r ight kidney measures 9 cm and left kidney measures 11.5 cm. Bladder within normal limits. Impression: 1: Possible left renal mass versus dromedary hump (normal variant). Recommend correlation with CT wit hout and with IV contrast. 2: Right renal cortical thinning. Reviewed, dictated and finalized at location L. Impression: 1: Possible left renal mass versus dromedary hump (normal variant). Recommend c orrelation with CT without and with IV contrast. 2: Right renal cortical thinning.
== END 2023-03-29 10:03 | disposition home or self-care (01) ==
PROVIDERS: PCP Student in an Organized Health Care Education/Training Program; Visit Provider Student in an Organized Health Care Education/Training Program
DX: N28.1 Cyst of kidney, acquired (principal)
CPT/HCPCS: 76770

== ENCOUNTER 2023-04-09 11:55 | Outpatient (CLI) | payer MEDICARE, BC, MEDICAID, SELFPAY ==
--- NOTE | ~2023-04-09 | CT_ITS ---
EXAMINATION: CT abdomen pelvis wo/w con DATE: 04/09/2023 13:14 INDICATION: Left kidney mass. TECHNIQUE: Computed tomography (CT) of the abdomen and pelvis was performed without and with 100 mL O mnipaque 350 intravenous contrast. Automated exposure control and iterative reconstruction technique were employed. The dose-length product was 2580.14 mGy-cm. COMPARISON: CT abdomen and pelvis 04/24/2020, 07/04/13, ultrasound 03/29/23 FINDINGS: The visualized portions of the lung bases demonstrate mild atelectasis. No pleural effusion . The heart size is normal. There are coronary artery calcifications. No pericardial effusion. There is a small sliding hiatal hernia. The liver, spleen, and pancreas are normal. The gallbladder is dist ended. The adrenal glands are normal. There is cortical thinning of the kidneys. There is a 19 mm cys t in right kidney. There are two 2 mm stones in right kidney. There is a dromedary hump of left kidne y. There are three 2 mm stones in left kidney. There is diverticulosis of the colon without evidence of diverticulitis. There are no dilated loops of bowel. The appendix is normal. There are no patholog ically enlarged lymph nodes. There is no free intraperitoneal fluid. There is a total right hip arthr oplasty. There is advanced left hip osteoarthritis. Epidural electrodes are noted. There is an intrat hecal catheter with pump. There is severe lumbar spondylosis. There are changes of posterior fusion p rocedure from L2 to L5. There are changes of anterior fusion procedures at L2-L3 and L4-L5. IMPRESSION: 1. Normal dromedary hump of left kidney correlating with the ultrasound finding. 2. Bilateral nonobstructing kidney stones. 3. Small sliding hiatal hernia. 4. Gallbladder distention, which may be secondary to fasting. Reviewed, dictated and finalized at location A. IMPRESSION: 1. Normal dromedary hump of left kidney correlating with the ultrasound finding . 2. Bilateral nonobstructing kidney stones. 3. Small sliding hiatal hernia. 4. Gallbladder distention, which may be secondary to fasting.
[2023-04-09 12:58] LABS: Estimated Glomerular Filt Rate 46
== END 2023-04-09 11:56 | disposition home or self-care (01) ==
PROVIDERS: PCP Student in an Organized Health Care Education/Training Program; Visit Provider Student in an Organized Health Care Education/Training Program
DX: N28.1 Cyst of kidney, acquired (principal); N20.0 Calculus of kidney; K44.9 Diaphragmatic hernia without obstruction or gangrene
CPT/HCPCS: 74178; Q9967

== ENCOUNTER 2023-11-08 13:53 | Emergency (ER) | payer MEDICARE, BC, MEDICAID, SELFPAY ==
[2023-11-08] VITALS (11 sets, daily range): BP systolic 112–148; BP diastolic 78–124; PULSE 79–97; RESP 7–24; TEMP 36.6–37.4; O2SAT 90–99
--- NOTE | ~2023-11-08 | XR_ITS ---
EXAMINATION: XR hip LT 2V w AP pelvis DATE: 11/08/2023 14:34 INDICATION: Left hip pain post fall TECHNIQUE: Anteroposterior view of the pelvis and anteroposterior and frog-leg lateral views of the l eft hip were obtained. COMPARISON: None. FINDINGS: Noncemented right total hip arthroplasty which is in near-anatomic alignment. L4-5 anterior spinal fu nikolai with interbody bone graft cage. Bilateral vertical darek and pedicle screw fixation extending from L5 through at least L3 and beyond the cephalad margin of the [id number]. Partially supply for a s niyah stimulator projects of the right buttock. No acute fracture. There is severe left hip osteoarth ritis with subarticular sclerosis and cystlike changes at both sides of the joint space. IMPRESSION: 1. Severe left hip osteoarthritis. No acute osseous abnormality. Reviewed, dictated and finalized at location A. KEGGER
--- NOTE | ~2023-11-08 | XR_ITS ---
EXAMINATION: XR lumbar spine 2-3V DATE: 11/08/2023 14:33 INDICATION: Low back pain post fall TECHNIQUE: Anteroposterior and lateral views of the lumbar spine, and cone-down lateral view of the l umbosacral junction were obtained. COMPARISON: CT dated 04/09/2023 FINDINGS: L2-L5 posterior spinal fusion with bilateral vertical darek and pedicle screw fixation at each level. A nterior fusion with bone graft cages at L2-L3 and L4-L5. Additional post anterior fusion without evid ent bone graft cages at L1-L2 and L3-L4. Severe disc height loss at T12-L1 and L5-S1. The spinal stim ulator projects over the right buttock with leads extending cephalad projecting over the left-sided c entral canal the lower thoracic spine extending along the cephalad margin of the [id number]. There is a likely intrathecal catheter extending the midline from the region of the right flank and also e xtending cephalad along the lower thoracic central canal with both the proximal and distal aspects th e catheter comminuted beyond the field of imaging. Partially visualized right total hip arthroplasty. Severe left hip osteoarthritis. IMPRESSION: 1. Severe lumbar and lower thoracic spondylosis with instrumented L2-L5 posterior spinal fusion and a nterior spinal fusion with bone graft cage at L2-L3 and L4-L5. 2. Severe spondylosis at the remainder of the lower lumbar spine with possible additional anterior fu nikolai without instrumentation at L1-L2 and L3-L4. Reviewed, dictated and finalized at location A. ECTOR TECHNICIAN IMPRESSION: 1. Severe lumbar and lower thoracic spondylosis with instrumented L2-L5 posteri or spinal fusion and anterior spinal fusion with bone graft cage at L2-L3 and L 4-L5. 2. Severe spondylosis at the remainder of the lower lumbar spine with possible additional anterior fusion without instrumentation at L1-L2 and L3-L4.
--- NOTE | ~2023-11-08 | CT_ITS ---
EXAMINATION: CT pelvis wo con DATE: 11/08/2023 18:06 INDICATION: Ground-level fall, left hip/pelvic pain. TECHNIQUE: Computed tomography (CT) of the pelvis was performed without intravenous contrast. Automat ed exposure control and iterative reconstruction technique were employed. The dose-length product was 980.09 mGy-cm. COMPARISON: CT abdomen pelvis 04/09/2023 FINDINGS: Incompletely visualized but uncomplicated appearing posterior lumbar fusion hardware. Incom pletely visualized but uncomplicated appearing left hip arthroplasty. Right lower abdominal drug pump or stimulator pack. Decreased osseous mineralization. Severe left hip arthritis. No fracture or disl ocation. IMPRESSION: No acute osseous finding in the pelvis. Reviewed, dictated and finalized at location K. RAISER
--- NOTE | 2023-11-08 14:43 | PC.NURSE ---
Patient daughter called for update. Ana Acosta, daughter, updated and all questions answered. Good call back # listed in chart.
[2023-11-08] MEDS: traMADol HCL (*CRX) 25 MG TABLET PO (18:56)
--- NOTE | 2023-11-08 19:10 | ED.FALL ---
HPI - Fall General Chief Complaint: Fall Stated Complaint: glf, L hip pain/lower back pain Time Seen by Provider: 11/08/23 17:02 Source: patient Mode of arrival: EMS Limitations: no limitations History of Present Illness HPI Narrative: Patient is a 73-year-old male, with PMH of Parkinson's Disease, who presents the ED via EMS with report of a fall. Patient is a resident of [facility]. Patient reports he was walking through the facility today with his walker when he tripped and fell causing him to fall. He landed on his left side. He does complain of pain to his left hip. He states he was unable to get up off the ground and required EMS's assistance. He was not able to bear weight on that side initially on scene. He denied any head injury or LOC. Denies any other areas of pain at this time. Has not taken anything for pain. Denies dizziness, lightheadedness, chest pain, difficulty breathing, vision changes. Related Data Home Medications Medication Instructions Recorded Confirmed divalproex 500 mg tablet,delayed 500 mg PO DAILY 10/20/19 01/11/23 release tamsulosin 0.4 mg capsule 0.4 mg PO DAILY 10/20/19 01/11/23 acidophilus 100 million 1 cap PO DAILY 04/23/20 01/11/23 cell-pectin, citrus 10 mg capsule (Acidophilus Probiotic) buspirone 10 mg tablet 10 mg PO TID 04/23/20 01/11/23 cholecalciferol (vitamin D3) 50 2,000 unit PO DAILY 04/23/20 01/11/23 mcg (2,000 unit) tablet (Vitamin D3) furosemide 40 mg tablet 40 mg PO DAILY 04/23/20 01/11/23 levothyroxine 150 mcg tablet 150 mcg PO DAILY 04/23/20 01/11/23 lisinopril 20 mg tablet 20 mg PO DAILY 04/23/20 01/11/23 polyethylene glycol 3350 17 17 g PO DAILY 04/23/20 01/11/23 gram/dose oral powder (Miralax) propranolol 20 mg tablet 20 mg PO Q12H 04/23/20 01/11/23 simvastatin 20 mg tablet 20 mg PO HS 04/23/20 01/11/23 lurasidone 60 mg tablet (Latuda) 60 mg PO 11/11/22 01/11/23 gabapentin 300 mg capsule 400 mg PO 04/12/23 Allergies Allergy/AdvReac Type Severity Reaction Status Date / Time No Known Allergies Allergy Verified 11/08/23 14:05 Review of Systems Review of Systems: CONSTITUTIONAL: Denies fever, chills, or sweats. CARDIOVASCULAR: Denies chest pain. RESPIRATORY: Denies dyspnea. GASTROINTESTINAL: Denies abdominal pain, nausea, vomiting. MUSCULOSKELETAL: See HPI. NEUROLOGIC: Denies headache, dizziness, numbness, or weakness. All systems reviewed & are unremarkable except as noted in HPI and below PMFSH Past Medical History Medical History Anxiety Arthritis Back pain Bilateral ankle fractures Bipolar disorder Central sleep apnea DDD (degenerative disc disease) Depression Essential hypertension, benign GERD (gastroesophageal reflux disease) Hypothyroidism Kidney stone JANIS (obstructive sleep apnea) Osteoporosis Surgical History Surgical History History of right hip replacement Hx of spinal surgery spinal fusion on L4-L5 Family History Family History Mother Hypertension, Onset Age: 83 Family history of respiratory disorder, Onset Age: 83 Family history of chronic obstructive pulmonary disease, Onset Age: 83 Other Family history of gynecological problem Social History Social History Smoking status: Never smoker Alcohol intake: former Drinks per week: 2 Alcohol use details: on occasion Substance use: never Substance use type: does not use Lack of Transportation: No Lack of Food: Never True Current Housing: I Have Housing Concerned About Future Housing: No Difficulty Paying Gas/Electric Bills: No Difficulty Paying for Meds: No Currently Unemployed: No Education: Trade/Vocational Certificate Difficulty w/ Childcare or Family Care: No
--- NOTE | 2023-11-08 19:11 | PC.NURSE ---
BSSR given to Jerardo JOHNSON
--- NOTE | 2023-11-08 20:34 | PC.NURSE ---
Patient stated he is calling someone to take him back to [facility]
== END 2023-11-08 21:10 ==
PROVIDERS: Emergency Provider Physician Assistant; PCP Student in an Organized Health Care Education/Training Program
DX: S70.02XA Contusion of left hip, initial encounter (principal); W01.0XXA Fall on same level from slipping, tripping and stumbling without subsequent striking against object, initial encounter; I10 Essential (primary) hypertension; E03.9 Hypothyroidism, unspecified; K21.9 Gastro-esophageal reflux disease without esophagitis; M81.0 Age-related osteoporosis without current pathological fracture; F31.9 Bipolar disorder, unspecified; F41.9 Anxiety disorder, unspecified; Z98.1 Arthrodesis status
CPT/HCPCS: 72100; 72192; 73502; 99284; A9270

== ENCOUNTER 2024-07-07 19:54 | Emergency (ER) | payer MEDICARE, BC, MEDICAID, SELFPAY ==
--- NOTE | ~2024-07-07 | CT_ITS ---
EXAMINATION:CT diagnostic chest wo con DATE: 07/07/2024 23:09 INDICATION: Left rib fracture. Fall. TECHNIQUE: Computed tomography (CT) of the chest was performed without intravenous contrast. Automate d exposure control and iterative reconstruction technique were employed. The dose-length product (DLP ) was 817.06 mGy-cm. COMPARISON: CT abdomen and pelvis 04/09/2023 FINDINGS: There is mild scarring in left upper lobe. There is mild atelectasis bilaterally. There are chronic subpleural bands in the lower lobes. No pleural effusion. The heart size is normal. There ar e coronary artery calcifications. No pericardial effusion. There is a small sliding hiatal hernia. Th ere are stones in the kidneys measuring up to 3 mm on the right. Epidural electrodes are noted. There are bridging endplate osteophytes at multiple levels in the spine, consistent with diffuse idiopathi c skeletal hyperostosis (DISH). There is severe thoracic spondylosis. There are changes of anterior f usion procedure in cervical spine. IMPRESSION: 1. No rib fracture. Reviewed, dictated and finalized at location A. IMPRESSION: 1. No rib fracture.
--- NOTE | ~2024-07-07 | XR_ITS ---
EXAMINATION: XR ribs LT 2V w CXR 2V DATE: 07/07/2024 22:12 INDICATION: Fall. Rib fracture. Rib pain. TECHNIQUE: Frontal and lateral views of the chest and 2 views on 3 radiographs of the left ribs were obtained. COMPARISON: Chest 2 views 07/21/2018, chest CT 07/07/2024 FINDINGS: CHEST TWO VIEWS: There is no pneumonia, pleural effusion, or pneumothorax. The heart size is normal. Epidural electrodes are noted. There are changes of anterior fusion procedure in cervical spine. LEFT RIBS: There is no rib fracture. There are changes of posterior fusion procedure in lumbar spine. IMPRESSION: 1. No rib fracture. Reviewed, dictated and finalized at location A. IMPRESSION: 1. No rib fracture.
--- NOTE | ~2024-07-07 | CT_ITS ---
EXAMINATION: CT brain wo con DATE: 07/07/2024 20:50 INDICATION: fall, hi . TECHNIQUE: Computed tomography (CT) of the head was performed without intravenous contrast. The mA wa s adjusted according to patient size. Iterative reconstruction technique was employed. The dose-lengt h product was 1135.00 mGy-cm. COMPARISON: 04/22/2020. FINDINGS: No acute intracranial hemorrhage or extra-axial fluid collection. No hydrocephalus, mass, or herniation. No acute ischemic infarct. Unremarkable dural venous sinus attenuation. No acute osseous abnormality. Posterior scalp contusions. Ethmoid mucosal thickening, the remaining aerated spaces are clear. Mild atrophy and chronic white matter change. Atherosclerotic intracranial calcification. IMPRESSION: No acute intracranial process. Reviewed, dictated and finalized at location K.
--- NOTE | ~2024-07-07 | XR_ITS ---
EXAM: XR hip LT 2V w AP pelvis DATE: 07/07/2024 21:16 HISTORY: PT FELL THIS EVENING . COMPARISON: 11/08/2023. FINDINGS: Partially visualized posterior lumbar fusion hardware. Right-sided generator pack. Partiall y visualized right hip arthroplasty hardware. Normal mineralization. No fracture or dislocation. No l ytic or blastic lesion. Severe left hip osteoarthritis. No erosion or periosteal change. Heterotopic bone formation about the right hip. IMPRESSION: No acute osseous finding in the pelvis or left hip. Reviewed, dictated and finalized at location K.
--- NOTE | ~2024-07-07 | CT_ITS ---
EXAMINATION: CT cervical spine wo con DATE: 07/07/2024 20:51 INDICATION: fall, hi TECHNIQUE: Computed tomography (CT) of the cervical spine was performed without intravenous contrast. Automated exposure control and iterative reconstruction technique were employed. The dose-length pro duct was 601.51 mGy-cm. COMPARISON: Facial cervical spine 03/28/2019. FINDINGS: Vertebral Body Alignment: Stable multilevel degenerative listheses. Craniocervical and atlantoaxial alignment: Moderate degenerative change. Alignment intact. Osseous structures/fracture: Well-circumscribed lytic lesion in the posterolateral aspect of C6, incr eased in size. No evidence of acute fracture. ACDF hardware spanning C5-C7 Cervical soft tissues: The paraspinal soft tissues planes are maintained. Degenerative changes: Multilevel degenerative disc disease, severe at C3-4. Multilevel facet arthropa thy worse on the right. Severe right neural foraminal narrowing at C4-5 secondary to degenerative dino nges. Severe central canal narrowing at C3-4 secondary to a posteriorly directed disc osteophyte comp murphy. IMPRESSION: No acute fracture or traumatic malalignment in the cervical spine. Lytic lesion in the posterolateral aspect of C6 concerning for myeloma or metastatic disease. Correla te with history of cancer or myeloma. Consider bone scanning. Reviewed, dictated and finalized at location K. IMPRESSION: No acute fracture or traumatic malalignment in the cervical spine. Lytic lesion in the posterolateral aspect of C6 concerning for myeloma or metas tatic disease. Correlate with history of cancer or myeloma. Consider bone scann ing.
--- NOTE | ~2024-07-07 | CT_ITS ---
EXAMINATION: CT lumbar spine wo con DATE: 07/07/2024 20:53 INDICATION: fall, lbp . TECHNIQUE: Computed tomography (CT) of the lumbar spine was performed without intravenous contrast. A utomated exposure control and iterative reconstruction technique were employed. The dose-length produ ct was 1521.14 mGy-cm. COMPARISON: X-ray L-spine 11/08/2023. FINDINGS: 5 nonrib-bearing lumbar-type vertebral bodies. Uncomplicated posterior fusion hardware span cristina L2-L5. Spinal stimulator wires traverse the posterior soft tissues entering the canal at L1-2 an d T12-11 extending superiorly. Interbody and facet fusions at L2-L5. Severe degenerative disc disease at L5-S1 and L1-2. Multiple large bridging osteophytes. Stable mild anterior wedge deformity at T12. Acute fractures of the left posterior 12th rib and the transverse processes on the left at L1 and L2 . IMPRESSION: Acute mildly displaced left posterior 12th rib fracture. Acute mildly displaced fractures of the left transverse processes at L1 and L2. Reviewed, dictated and finalized at location K.
[2024-07-07 19:57] VITALS: PULSE 73; RESP 18; TEMP 36.6; O2SAT 96
[2024-07-07 20:15] VITALS: BP 162/68; PULSE 71; RESP 20; TEMP 36.6; O2SAT 91
--- NOTE | 2024-07-07 21:09 | ED.FALL ---
HPI - Fall General Chief Complaint: Fall Stated Complaint: GLF from [facility] Time Seen by Provider: 07/07/24 19:56 Source: patient Mode of arrival: EMS Limitations: no limitations History of Present Illness HPI Narrative: Patient is a 73-year-old male, with PMH of parkinson's disease, who presents to the ED via EMS with report of fall. Patient is a resident of [facility]. Patient reports he was transferring from a wheelchair to his recliner when he lost his balance and fell. He fell backwards onto his left side. He did his head on the TV stand. Denied LOC. Complains pain to his left lower back, left hip. Denies numbness, dizziness, lightheadedness, vision changes, neck pain, headache. He is not on any anticoagulation. Related Data Home Medications Medication Instructions Recorded Confirmed tamsulosin 0.4 mg capsule 0.4 mg PO DAILY 10/20/19 04/03/24 buspirone 10 mg tablet 10 mg PO TID 04/23/20 04/03/24 cholecalciferol (vitamin D3) 50 2,000 unit PO DAILY 04/23/20 04/03/24 mcg (2,000 unit) tablet (Vitamin D3) furosemide 40 mg tablet 40 mg PO DAILY 04/23/20 04/03/24 levothyroxine 150 mcg tablet 150 mcg PO DAILY 04/23/20 04/03/24 polyethylene glycol 3350 17 17 g PO DAILY 04/23/20 04/03/24 gram/dose oral powder (Miralax) lurasidone 60 mg tablet (Latuda) 60 mg PO 11/11/22 04/03/24 gabapentin 300 mg capsule 400 mg PO 04/12/23 04/03/24 acetaminophen 500 mg capsule 500 mg PO Q6H PRN 04/03/24 04/03/24 aspirin 81 mg tablet,delayed 81 mg PO DAILY 04/03/24 04/03/24 release (Adult Low Dose Aspirin) atorvastatin 40 mg tablet 40 mg PO DAILY 04/03/24 04/03/24 duloxetine 60 mg capsule,delayed 60 mg PO DAILY 04/03/24 04/03/24 release sertraline 50 mg tablet 50 mg PO DAILY 04/03/24 04/03/24 Allergies Allergy/AdvReac Type Severity Reaction Status Date / Time No Known Allergies Allergy Verified 07/09/24 10:47 Review of Systems Review of Systems: All systems reviewed & are unremarkable except as noted in HPI. All systems reviewed & are unremarkable except as noted in HPI and below PMFSH Past Medical History Medical History Anxiety Arthritis Back pain Bilateral ankle fractures Bipolar disorder Central sleep apnea DDD (degenerative disc disease) Depression Essential hypertension, benign GERD (gastroesophageal reflux disease) Hypothyroidism Kidney stone JANIS (obstructive sleep apnea) Osteoporosis Surgical History Surgical History History of right hip replacement Hx of spinal surgery spinal fusion on L4-L5 Family History Family History Mother Hypertension, Onset Age: 83 Family history of respiratory disorder, Onset Age: 83 Family history of chronic obstructive pulmonary disease, Onset Age: 83 Other Family history of gynecological problem Social History Social History Smoking status: Never smoker Alcohol intake: former Drinks per week: 2 Alcohol use details: on occasion Substance use: never Substance use type: does not use Lack of Transportation: No Lack of Food: Never True Current Housing: I Have Housing Concerned About Future Housing: No Difficulty Paying Gas/Electric Bills: No Difficulty Paying for Meds: No Currently Unemployed: No Education: Trade/Vocational Certificate Difficulty w/ Childcare or Family Care: No Living arrangements: assisted living Occupation/Education: retired Gender identity (if verbalized by the patient): Male Spiritual care concerns: No Exam Narrative: GENERAL: Elderly, morbidly obese with BMI of 40.9, non-toxic, in no acute distress. HEAD: Normocephalic, atraumatic. RESPIRATORY: Airway patent, respirations nonlabored. Clear to auscultation bilaterally,
[2024-07-07] MEDS: traMADol HCL (*CRX) 50 MG TABLET PO (21:36)
[2024-07-07] MEDS: ACETAMINOPHEN 500 MG TABLET 1000 MG PO (21:37)
[2024-07-07 23:00] VITALS: BP 147/117; PULSE 61; RESP 20; O2SAT 97
[2024-07-08 00:03] VITALS: BP 160/72; PULSE 67; RESP 15; O2SAT 93
[2024-07-08] MEDS: LIDOCAINE 5% PATCH 1 PATCH TRANSDERM (01:42)
== END 2024-07-08 01:54 ==
PROVIDERS: Emergency Provider Physician Assistant; PCP Student in an Organized Health Care Education/Training Program
DX: S22.32XA Fracture of one rib, left side, initial encounter for closed fracture (principal); S32.018A Other fracture of first lumbar vertebra, initial encounter for closed fracture; S32.028A Other fracture of second lumbar vertebra, initial encounter for closed fracture; I10 Essential (primary) hypertension; G20.A1 Parkinson's disease without dyskinesia, without mention of fluctuations; G47.31 Primary central sleep apnea; E03.9 Hypothyroidism, unspecified; E66.01 Morbid (severe) obesity due to excess calories; Z68.41 Body mass index [BMI] 40.0-44.9, adult; K21.9 Gastro-esophageal reflux disease without esophagitis; M81.0 Age-related osteoporosis without current pathological fracture; F31.9 Bipolar disorder, unspecified; F41.9 Anxiety disorder, unspecified; Z98.1 Arthrodesis status; Z96.641 Presence of right artificial hip joint; Z87.442 Personal history of urinary calculi; Z79.82 Long term (current) use of aspirin; Z79.899 Other long term (current) drug therapy; M89.9 Disorder of bone, unspecified; W18.39XA Other fall on same level, initial encounter
CPT/HCPCS: 70450; 71046; 71100; 71250; 72125; 72131; 73502; 99284; A9270

== ENCOUNTER 2024-08-28 09:44 | Outpatient (CLI) | payer MEDICARE, BC, MEDICAID, SELFPAY ==
[2024-08-28 10:32] LABS: Basophils Percent Auto 0.6 % (0.2-1.2); Eosinophils Absolute Auto 0.2 K/mm3 (0-0.3); Eosinophils Percent Auto 2.2 % (0-4.4); Hematocrit 38.4 % (42.0-52.0); Hemoglobin 12.2 g/dL (14.0-18.0); Immature Granulocyte Absolute 0.02 K/mm3 (0.00-0.031); Immature Granulocyte Percent A 0.3 % (0-0.5); Lymphocytes Absolute Auto 1.53 K/mm3 (0.9-3.2); Lymphocytes Percent Auto 22.8 % (18.3-44.2); Mean Corpuscular HGB Conc 31.8 g/dl (32-36); Mean Corpuscular Volume 94.3 fl (80-100); Mean Platelet Volume 9.2 fl (7.4-10.4); Monocytes Absolute Auto 0.7 K/mm3 (0.1-0.6); Monocytes Percent Auto 9.8 % (2.6-8.5); Neutrophils Absolute Auto 4.3 K/mm3 (1.3-6.7); Neutrophils Percent Auto 64.3 % (45.5-73.1); Platelet Count Result 267 k/mm3 (150-375); Red Blood Count 4.07 M/mm3 (4.6-6.20); Red Cell Distribution Width 13.5 % (11.5-14.5); White Blood Count 6.7 K/mm3 (4.5-10.0)
[2024-08-28 11:00] LABS: Alanine Aminotransferase 10 U/L (6-50); Albumin Level 4.4 g/dL (3.5-5.1); Alkaline Phosphatase 95 U/L (38-126); Anion Gap 11 mmol/L (4-12); Aspartate Amino Transferase 24 U/L (17-59); Bilirubin,Total 0.4 mg/dL (0.2-1.3); Blood Urea Nitrogen 24 mg/dL (9-20); Calcium 9.4 mg/dL (8.4-10.2); Carbon Dioxide 27 mmol/L (22-30); Chloride 101 mmol/L (98-107); Creatine Kinase 94 U/L (55-170); Estimated Glomerular Filt Rate > 60; Glucose 120 mg/dL (65-110); Sodium 139 mmol/L (137-145)
[2024-08-28 12:14] LABS: Folic Acid > 20.0 ng/mL (2.76->20)
[2024-09-01 14:38] LABS: Vitamin D 1,25 (OH)2 Total 27 pg/mL (18-72); Vitamin D2 1,25 (OH)2 <8 pg/mL; Vitamin D3 1,25 (OH)2 27 pg/mL
[2024-09-01 23:34] LABS: Methylmalonic Acid 276 nmol/L (69-390)
== END 2024-08-28 09:45 | disposition home or self-care (01) ==
PROVIDERS: PCP Student in an Organized Health Care Education/Training Program; Referring Provider Student in an Organized Health Care Education/Training Program; Visit Provider Psychiatry & Neurology Neurology
DX: E55.9 Vitamin D deficiency, unspecified (principal); I10 Essential (primary) hypertension; G20.C Parkinsonism, unspecified; G62.9 Polyneuropathy, unspecified; R29.6 Repeated falls
CPT/HCPCS: 36415; 80053; 82550; 82607; 82652; 82746; 83921; 84443; 85025

== ENCOUNTER 2024-08-29 07:32 | Outpatient (CLI) | payer MEDICARE, BC, MEDICAID, SELFPAY ==
--- NOTE | ~2024-08-29 | NM_ITS ---
EXAMINATION: NM bone scan whole body DATE: 08/29/2024 12:25 INDICATION: Cervical spine bone lesion TECHNIQUE: 25 mCi Tc-99m HDP was administered intravenously. Delayed whole-body scintigrams were obt ained. COMPARISON: CT chest, cervical and lumbar spine dated 07/07/24, CT abdomen and pelvis dated 04/05/[address] cervical spine dated 03/28/2019 FINDINGS: Photopenic defect at the right hip corresponding to a total hip arthroplasty on prior CT. There is ma rked joint centered uptake at the left hip corresponding to severe osteoarthritis and associated arnoldo articular hypertrophic change at the left hip on prior CT. Additional likely degenerative joint cente red uptake at the bilateral feet and to lesser degree at the medial compartments of both knees and at the bilateral sternoclavicular and acromioclavicular joints. There also appears to be some contamina tion of material external to the patient's feet. There is increased uptake associated with prominent degenerative endplate osteophytes at the levels of the thoracolumbar junction. Similarly there is inc reased uptake along the right side of the upper thoracic spine corresponding to osteophytes projectin g between the vertebral body and posterior ribs. No other suspicious bone lesions. Right renal atrop hy with decreased size and uptake at the right kidney. IMPRESSION: 1. Scattered foci of likely degenerative joint centered and vertebral endplate osteophytes centered u ptake as detailed above. 2. No other suspicious foci of abnormal bone uptake to suggest malignancy. Of note sensitivity for ly tic bone lesions such as in the setting of multiple myeloma can be low with bone scan. The lytic lesi on identified on the most recent study at C6 has a nonaggressive appearance with a thin sclerotic mar gin and has increased in size but was nonetheless present on CT from over 5 years prior which favors a benign chronic erosion over malignancy. Reviewed, dictated and finalized at location A. IMPRESSION: 1. Scattered foci of likely degenerative joint centered and vertebral endplate osteophytes centered uptake as detailed above. 2. No other suspicious foci of abnormal bone uptake to suggest malignancy. Of n ote sensitivity for lytic bone lesions such as in the setting of multiple myelo ma can be low with bone scan. The lytic lesion identified on the most recent st udy at C6 has a nonaggressive appearance with a thin sclerotic margin and has i ncreased in size but was nonetheless present on CT from over 5 years prior whic h favors a benign chronic erosion over malignancy.
== END 2024-08-29 07:33 | disposition home or self-care (01) ==
PROVIDERS: PCP Student in an Organized Health Care Education/Training Program; Visit Provider Student in an Organized Health Care Education/Training Program
DX: M89.9 Disorder of bone, unspecified (principal)
CPT/HCPCS: 78306; A9503

== ENCOUNTER 2024-10-02 09:30 | Outpatient (CLI) | payer MEDICARE, BC, MEDICAID, SELFPAY ==
[2024-10-02 10:19] LABS: Immature Reticulocyte Fraction 22.2 % (3.0-15.9); Reticulocyte Hemoglobin Conten 33.4 pg (28.2-36.6); Reticulocyte Percent 1.99 % (0.7-4.3); Reticulocytes Absolute 0.09 10^6/uL (0.02-0.10)
[2024-10-02 10:36] LABS: Hemoglobin A1C 5.7 % (<5.7)
[2024-10-02 10:39] LABS: Iron 114 ug/dL (49-181)
[2024-10-02 10:48] LABS: Anion Gap 7 mmol/L (4-12); Blood Urea Nitrogen 26 mg/dL (9-20); Calcium 9.6 mg/dL (8.4-10.2); Carbon Dioxide 31 mmol/L (22-30); Chloride 99 mmol/L (98-107); Estimated Glomerular Filt Rate 60; Glucose 102 mg/dL (65-110); Lactate Dehydrogenase 206 U/L (120-246); Percent Iron Saturation 39 % (20-50); Potassium 4.4 mmol/L (3.4-5.0); Sodium 137 mmol/L (137-145)
[2024-10-02 10:56] LABS: Transferrin 235 mg/dL (206-381)
[2024-10-02 11:09] LABS: NT Pro B Type Natriuretic Pept 150 pg/mL (19.9-100)
[2024-10-02 12:11] LABS: Folic Acid > 20.0 ng/mL (2.76->20)
[2024-10-03 08:17] LABS: Haptoglobin 231 mg/dL (43-212)
== END 2024-10-02 09:31 | disposition home or self-care (01) ==
PROVIDERS: PCP Student in an Organized Health Care Education/Training Program; Referring Provider Anesthesiology; Visit Provider Internal Medicine Cardiovascular Disease
DX: D64.9 Anemia, unspecified (principal); R73.9 Hyperglycemia, unspecified; R06.9 Unspecified abnormalities of breathing
CPT/HCPCS: 36415; 80048; 82607; 82728; 82746; 83010; 83036; 83540; 83550; 83615; 83880; 84466; 85046

== ENCOUNTER 2024-11-27 13:21 | Outpatient (CLI) | payer MEDICARE, BC, MEDICAID, SELFPAY ==
--- NOTE | 2024-11-27 13:48 | ECHO_ITS ---
Patient Info Name: Phani Patricia Age: 74 years : 1950 Gender: Male Ht: 72 in Wt: 314 lbs BSA: 2.75 m2 HR: 92 bpm BP: 180 / 117 mmHg Heart Rhythm: Sinus Rhythm Technical Quality: Fair Exam Date: 11/27/2024 1:52 PM Exam Location: Echo Lab Patient Status: Outpatient Admit Date: 11/27/2024 Staff Ordering Physician: Yfn Recinos DO Monitoring Engineer: Catherine Go RDCS Attending Provider: Yfn Recinos DO Referring Physician: Jorje NOLAN; Exam Type: CA echo dop color flow w con Study Info Indications R60.0 - Localized edema Complete two-dimensional, color flow and Doppler transthoracic echocardiogram is performed with contrast to opacify the left ventricle and to improve the deliniation of the left ventricle endocardial borders. Contrast/Agitated Saline Contrast/Ag. Saline: Definity Amount: 2.00 ml Administered By: Catherine Go RDCS New IV Access: Right Site Condition: IV removed Summary 1. Left ventricular chamber dimension is normal. 2. Left ventricular systolic function is normal, estimated at 65-70%. 3. The left ventricular diastolic function is grade I diastolic dysfunction. 4. E/e' 10 is mildly elevated. 5. There is mild aortic valve sclerosis. 6. Mild pulmonary hypertension, estimated pulmonary arterial systolic pressure is 41 mmHg. Left Ventricle E/e' 10 is mildly elevated. Left ventricular chamber dimension is normal. Left ventricular systolic function is normal, estimated at 65-70%. The left ventricular diastolic function is grade I diastolic dysfunction. Right Ventricle Right ventricular systolic function is normal and with normal TAPSE 2.4 cm. Right ventricular chamber dimension is normal. Left Atria Left atrial chamber dimension is normal. Right Atria Right atrial chamber dimension is normal. Aortic Valve The aortic valve is trileaflet. There is mild aortic valve sclerosis. There is no aortic valve stenosis. There is no aortic valve regurgitation. Pulmonic Valve There is no pulmonic regurgitation. Mitral Valve There is no mitral valve stenosis. There is no mitral valve regurgitation. Tricuspid Valve There is no tricuspid valve regurgitation. Mild pulmonary hypertension, estimated pulmonary arterial systolic pressure is 41 mmHg. Pericardium/Pleural There is no pericardial effusion. Inferior Vena Cava Normal inferior vena cava with >50% collapse upon inspiration consistent with normal right atrial pressure, 5 mmHg. Aorta The aortic root size at the sinus of Valsalva is normal. Left Ventricular Outflow Tract Name Value Normal LVOT 2D LVOT Diameter 1.95 cm LVOT Doppler LVOT Peak Gradient 9 mmHg LVOT Mean Gradient 5 mmHg LVOT VTI 31.99 cm LVOT VTI/AV VTI Ratio 0.94 LVOT Stroke Volume 95.97 ml LVOT CO 6.79 l/min LVOT CI 2.47 L/min/m2 Pulmonic Valve Name Value Normal RVOT Doppler RVOT Peak Gradient 4 mmHg PV Doppler PV Peak Gradient 5 mmHg Mitral Valve Name Value Normal MV Doppler MV Decel Canadian 532.81 cm/s2 MV PHT 0 s MV Area (PHT) 5.41 cm2 4.00-5.00 MV Diastolic Function MV E Peak Velocity 74.71 cm/s MV A Peak Velocity 96.02 cm/s MV E/A 0.78 MV Decel Time 0 s MV Annular TDI MV E/e' (Septal) 11.00 <=8.00 MV E/e' (Lateral) 9.31 <=8.00 MV E/e' (Average) 10.16 Tricuspid Valve Name Value Normal TV Regurgitation Doppler TR Peak Velocity 299.67 cm/s TR Peak Gradient 36 mmHg Estimated PAP/RSVP RA Pressure 5 mmHg <=5 PA Systolic Pressure 41 mmHg <36 RV Systolic Pressure 41 mmHg <36 Aorta Name Value Normal Ascending Aorta Ao Root Diameter (MM) 3.88 cm Ao Root Diam Index (MM) 1.41 cm/m2 Aortic Valve Name Value Normal AV Doppler AV Peak Velocity 160.17 cm/s AV Peak Gradient 10 mmHg AV Mean Gradient 7 mmHg AV VTI 33.94 cm AV Area (Cont Eq VTI) 2.83 cm2 >=3.00 AV Area (Cont Eq Carmelo) 2.77 cm2 AV Regurgitation 2D LVOT Area 3.00 cm2 Ventricles Name Value Normal LV Dimensions 2D/MM IVS Diastolic Thickness (2D) 1.11 cm 0.60-1.00 LVID Diastole (2D) 4.95 cm 4.20-5.80 LVIW Diastolic Thickness (2D) 0.94 cm 0.60-1.00 LVID Systole (2D) 2.76 cm 2.50-4.00 LVOT Diameter 1.95 cm LV Mass (2D Cubed) 184.97 g 88.00-224.00 LV Mass Index (2D Cubed) 0.01 g/cm2 0.00-0.01 Relative Wall Thickness (2D) 0.38 LV Fractional Shortening/Ejection Fraction 2D/MM LV Fractional Shortening (2D) 44 % 25-43 LV EF (2D Teicholz) 75 % 52-72 LV Diastolic Volume (4C MOD) 81.65 ml LV EF (4C MOD) 79 % LV Diastolic Volume (2C MOD) 75.72 ml LV EF (2C MOD) 76 % LV Diastolic Volume (BP MOD) 80.69 ml 62.00-150.00 LV Diastolic Volume Index (BP MOD) 0.03 l/m2 0.03-0.07 LV Systolic Volume (BP MOD) 19.16 ml 21.00-61.00 LV Systolic Volume Index (BP MOD) 0.01 l/m2 0.01-0.03 LV EF (BP MOD) 76 % 52-72 LV Diastolic Length (4C) 8.10 cm LV Systolic Length (4C) 6.45 cm LV Stroke Volume (4C MOD) 64.27 ml Atria Name Value Normal LA Dimensions LA Dimension (MM) 4.80 cm 3.00-4.10 LA Volume (4C A-L) 58.04 ml LA Volume (BP A-L) 55.37 ml RA Dimensions RA Area (4C) 15.43 cm2 <=18.00 Report Signatures
[2024-11-27] MEDS: PERFLUTREN LIPID MICROSPHERES 1.5 ML VIAL DILUTED TO 10 ML TOTAL VOLUME IV PUSH (14:15)
--- NOTE | 2024-11-27 15:52 | IVDEFINITY ---
Prior to administration of IV Definity the patient was educated on the risks and benefits of the imaging enhancing agent including potential adverse side effects. The patient verbalized understanding. Allergies were verified. No exclusion criteria were identified and at least one of the following inclusion criteria were met: 1) physician request, 2) patient technically difficult to image (per the [place] [employer] guidelines of two or more segments not discernable within the apical view), or 3) questionable left ventricular function. ?
== END 2024-11-27 13:22 | disposition home or self-care (01) ==
LOC: ANHCARD 13:31
PROVIDERS: PCP Student in an Organized Health Care Education/Training Program; Visit Provider Internal Medicine Cardiovascular Disease
DX: I51.89 Other ill-defined heart diseases (principal); I35.8 Other nonrheumatic aortic valve disorders; I27.20 Pulmonary hypertension, unspecified; R60.0 Localized edema
CPT/HCPCS: C8929; Q9957

== ENCOUNTER 2025-01-17 09:47 | Outpatient (CLI) | payer MEDICARE, BC, MEDICAID, SELFPAY ==
[2025-01-17 10:57] LABS: Basophils Absolute Auto 0.1 K/mm3 (0.0-0.1); Basophils Percent Auto 0.8 % (0.2-1.2); Eosinophils Absolute Auto 0.2 K/mm3 (0-0.3); Eosinophils Percent Auto 2.5 % (0-4.4); Hemoglobin 13.7 g/dL (14.0-18.0); Immature Granulocyte Absolute 0.03 K/mm3 (0.00-0.031); Immature Granulocyte Percent A 0.4 % (0-0.5); Lymphocytes Absolute Auto 1.73 K/mm3 (0.9-3.2); Lymphocytes Percent Auto 21.7 % (18.3-44.2); Mean Corpuscular HGB Conc 31.1 g/dl (32-36); Mean Corpuscular Hemoglobin 29.2 pg (26-34); Mean Corpuscular Volume 93.8 fl (80-100); Mean Platelet Volume 9.4 fl (7.4-10.4); Monocytes Absolute Auto 1.2 K/mm3 (0.1-0.6); Monocytes Percent Auto 14.9 % (2.6-8.5); Neutrophils Absolute Auto 4.8 K/mm3 (1.3-6.7); Neutrophils Percent Auto 59.7 % (45.5-73.1); Platelet Count Result 249 k/mm3 (150-375); Red Blood Count 4.69 M/mm3 (4.6-6.20)
--- OUTSIDE RECORDS SUMMARY | 2025-01-17 11:01 | XMS_ITS | Clinical Summary ---
Author Organization [facility] Address [address] [place] [address] Care Team Providers Care Childcare Worker Name Role Phone Lauro Campbell Primary Care Provider + Allergies No known active allergies Medications Misc. Devices Kit by Intrathecal route continuous. Pain pump: 1.929 Hydromorphone, 0.4822 bupivacaine, 19.29 clonidine Active NARCAN 4 MG/0.1ML nasal spray 1 spray by Nasal route as needed for Opioid reversal. 020 Active melatonin 10 MG tabletIndications:Prima ry insomnia Take 1 tablet (10 mg total) by mouth nightly at bedtime. 30 tablet 11 021 Active sodium chloride 0.9 % SOLN with HYDROmorphone 1 MG/ML SOLN 5 mcg/mL, cloNIDine 100 MCG/ML SOLN 1 mcg/mL, BUpivacaine (PF) 0.5 % SOLN 0.0625 % by Epidural route continuous. Pain pump [place] 1.929 Bup 0.4822 Clonidine 19.29 Active DULoxetine (CYMBALTA) 60 MG capsuleIndications:Bipo lar 1 disorder (CMS/HCC HHS/HCC) Take 1 capsule (60 mg total) by mouth daily. 90 capsule 1 022 Active FEROSUL 325 (65 Fe) MG tabletIndications:Iron deficiency Take 1 tablet (325 mg total) by mouth daily. 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 90 tablet Active levothyroxine (SYNTHROID) 175 MCG tabletIndications:Other specified hypothyroidism Take 1 tablet (175 mcg total) by mouth every morning. 90 tablet Active lisinopril (PRINIVIL) 2.5 MG tabletIndications:Prima ry hypertension Take 1 tablet (2.5 mg total) by mouth daily. 90 tablet Active tamsulosin (FLOMAX) 0.4 MG CapIndications:Benign prostatic hyperplasia without lower urinary tract symptoms Take 1 capsule (0.4 mg total) by mouth daily. 90 capsule Active THERA-M tabletIndications:Vitam in D deficiency Take 1 tablet by mouth daily. 90 tablet Active Vitamin D3, cholecalciferol, 2000 UNIT Tab tabletIndications:Vitam in D deficiency Take 1 tablet (2,000 Units total) by mouth daily. 90 tablet Active propranolol (INDERAL) 20 MG tabletIndications:Essen tial tremor Take 1 tablet (20 mg total) by mouth 2 (two) times daily. 180 tablet Active busPIRone (BUSPAR) 10 MG tabletIndications:Bipol ar 1 disorder (CMS/HCC HHS/HCC) Take 1 tablet (10 mg total) by mouth 3 (three) times daily. 270 tablet Active atorvastatin (LIPITOR) 40 MG tabletIndications:Pure hypercholesterolemia Take 1 tablet (40 mg total) by mouth nightly at bedtime. 90 tablet Active senna-docusate (SENOKOT-S) 8.6-50 MG tabletIndications:Const ipation Take 1 tablet by mouth nightly at bedtime. 30 tablet Active ACETAMINOPHEN EXTRA STRENGTH 500 MG tabletIndications:Other chronic pain Take 1 tablet (500 mg total) by mouth every 4 (four) hours as needed for Pain. 90 tablet Active sertraline (ZOLOFT) 50 MG tabletIndications:Bipol ar 1 disorder (CMS/HCC HHS/HCC) Take 1 tablet (50 mg total) by mouth nightly at bedtime. 30 tablet Active polyethylene glycol (GLYCOLAX) 17 GM/SCOOP powderIndications:Slow transit constipation TAKE 17GM (1 CAPFUL) MIXED IN 4-8 OZ. OF LIQUID BY MOUTH DAILY NEEDED FOR CONSTIPATION 510 g Active carbidopa-levodopa (SINEMET) 25-250 MG tablet Take 2 tablets by mouth 4 (four) times daily. Active lurasidone (LATUDA) 60 MG tablet Take by mouth daily with breakfast. Active furosemide (LASIX) 40 MG tabletIndications:Swell ing,Essential hypertension, benign TAKE 1 TABLET (40 MG) TWICE A DAY TODAY 09/21/2024 AND TOMORROW 09/22/2024. THEN START 40 MG TWICE A DAY ON MONDAYS, WEDNESDAYS AND FRIDAYS AND 40 MG ONCE A DAY ON SUNDAYS,TUESDAY S, TUESDAY AND SATURDAYS. NEW DOSE 09/21/2024 125 tablet 1 Active Additional Information Patient taking differently: TAKE 1 TABLET (40 MG) TWICE A DAY TODAY 09/21/2024 AND TOMORROW 09/22/2024. THEN START 40 MG TWICE A DAY ON MONDAYS, WEDNESDAYS AND FRIDAYS AND 40 MG AND 20 MG ONCE A DAY ON SUNDAYS,TUESDAYS, TUESDAY AND SATURDAYS., Reported on 11/27/2024 potassium chloride CR (KLOR-CON M) 20 MEQ tabletIndications:Hypok alemia TAKE (2O MEQ) TODAY 09/21/2024 THEN TAKE 20 MEQ EVERY MONDAYS, WEDNESDAYS AND FRIDAYS.NEW DOSE 09/21/2024 40 tablet 1 Active HYDROmorphone HCl Powder Hydromorphone, Bupivacaine, clonidine (pain pump) Active BUPivacaine HCl Powder 04/02 Active gabapentin (NEURONTIN) 400 MG capsule Take 3 capsules (1,200 mg total) by mouth 3 (three) times daily. Active empagliflozin (JARDIANCE) 25 MG tabletIndications:Chron ic diastolic congestive heart failure (CMS/HCC HHS/HCC) Take 1 tablet (25 mg total) by mouth daily. 30 tablet 2 Active Active Problems Problem Noted Date Diagnosed Date Body mass index (BMI) 45.0-49.9, adult 5 Stage 3a chronic kidney disease ([facility] ) 02/11/2024 Morbid (severe) obesity due to excess calories ([facility]) 08/30/2023 SCC (squamous cell carcinoma), hand, left 2021 Basal cell carcinoma (BCC) of left side of nose 11/02/2022 Orthostatic hypotension 07/30/2022 Ambulatory dysfunction 04/28/2022 Anxiety 04/28/2022 Osteoarthrosis 04/28/2022 Calculus of kidney 04/28/2022 Contusion of hip, right 04/28/2022 Degeneration of intervertebral disc 04/28/2022 Essential hypertension, benign 04/28/2022 Fall 04/28/2022 Falls frequently 04/28/2022 Family history of colonic polyps 04/28/2022 GERD (gastroesophageal reflux disease) Hematuria 04/28/2022 Left ureteral stone 04/28/2022 Microhematuria 04/28/2022 Osteoporosis 04/28/2022 Peripheral neuropathy 04/28/2022 Superficial bruising 04/28/2022 Wound of foot 04/28/2022 Parkinson disease ([facility]) 04/28/2022 Diastolic congestive heart failure ([facility]) 05/29/2021 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 Check TSH today Fatigue 04/13/2016 Overview (06/04/2019): Last Assessment & Plan: Likely multifactorial Follow up with sleep medicine regarding history of JANIS Labs today Acute pain of left hip 02/20/2016 Obesity 02/20/2016 Overview (06/04/2019): Last Assessment & Plan: Reviewed low carb diet, counting calories and keeping track in [employer] [place] Intermittent fasting Maintain water intake Exercise as able Add Victoza. Discussed potential for GI side effects, including pancreatitis. Discussed modification of diet in the first 2 weeks on the medication to decrease risk of nausea/vomiting Excessive sweating 10/24/2015 Muscle pain 10/24/2015 Pain in testicle 08/28/2015 Undescended testicle 08/28/2015 Intolerant of heat 06/16/2015 Overview (06/04/2019): Overview: Symptoms have been going on for over 3 years, worse after showering. Work up for pheo, carcinoid and acromegaly, has been unremarkable Last Assessment & Plan: Check TSH, FT4, IGF-1 Repeat 24 hour 5-HIAA Has done well on H2B and cetirizine Swelling 06/16/2015 Testosterone deficiency 06/16/2015 Overview (06/04/2019): Overview: Initially diagnosed 02/2015. Per report, at that time T level was < 50, with elevated gonadotropins. Pituitary MRI 11/2015 unremarkable. Fathered 2 biological children, continued to shave regularly. Tried T supplementation but stopped due to fluctuating levels on various replacement therapies. Last Assessment & Plan: Obtain 8 AM Testosterone levels, then address supplementation, if appropriate. 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 09/22/2011 Lumbago 09/08/2011 Postlaminectomy syndrome of lumbar region 2010 History of osteomyelitis 10/26/2010 Infection and inflammatory r eaction due to device, implant, and graft 09/13/2010 Hypertension Hyperlipidemia Bipolar 1 disorder ([facility]) Resolved Problems Problem Noted Date Diagnosed Date Resolved Date Nausea with vomiting 02/20/2016 022 Gonadotropin deficiency ([facility]) 10/30/2015 02/28/2024 Inflammation of sacroiliac joint 09/13/2010 12/08/2021 Encounters Date Type Department Care Team Description 11/27/2024 9:40 AM BLUE LEATHER SETTER Office Visit [facility] Family & Internal Medicine - [address] [phone] Lauro Campbell, DO Weight Problem (The patient is concerned with his weight. The patient states he was 294 at 10/14/2024) 11/27/2024 Scan [facility] SRVCS Scanned, [facility] Echo (SCAN) 11/27/2024 Travel 11/26/2024 Telephone [facility], [address] [address] Igor Menchaca MD Called To Cancel Office Appt. 10/31/2024 Abstract [facility], [address] [address] Carisa Broderick, LICENSING MANAGER 10/23/2024 Telephone [facility] [address] [address] Igor Menchaca MD Medication (jardiance) 10/19/2024 1:15 PM BLUE LEATHER SETTER Office Visit [facility]-[address] [phone] Igor Menchaca MD Edema (F/UP) 10/19/2024 Scan [facility] SRVCS Scanned, [facility] 10/19/2024 Travel from Last 3 Months Immunizations Name Administration Dates Next Due Fluzone High Dose (IIV, triv alent, 0.5mL) 08/21/2024 Fluzone High Dose - >Age 65 (Prefilled Syringe) 08/30/2023,08/18/2022,09/08/2020 Influenza (Generic) 09/16/2015,08/22/2014 Influenza Adult (Generic) 08/30/2023,03/2022,09/02/2021,2019,09/20/2016,09/16/2015,08/22/2014 PFIZER COVID-19 (12+) MRNA, LNP-S, PF, BENNETT-SUCROSE, 30 MCG/0.3 ML (COMIRNATY) 08/21/2024 PFIZER COVID-19 (ORIGINAL FORMULATION, PURPLE CAP) mRNA, LNP-S, PF, 30 MCG/0.3 ML DOSE 01/14/2021,12/24/2020 Pneumococcal (Pneumovax 23) 01/04/2023, 7,02/29/2016 Pneumococcal (Prevnar 13) 06/23/2020 Shingrix 09/10/2021,05/14/2021 Tdap (Boostrix) 01/12/2017 Tdap (Generic) 01/07/2023,01/12/2017 Family History Medical History Relation Comments Cancer Brother Bone Cancer Maternal Grandfather Diabetes Maternal Grandfather Cancer Maternal Grandmother Breast Arthritis Mother Cancer Mother Depression Mother Nervous Breakdow n Heart Disease Mother Valve replacemen t Hyperlipidemia Mother Hypertension Mother Stroke Mother Mini strokes Vision loss Mother Cancer Paternal Grandmother Breast Relation Status Comments Brother Father Maternal Grandfather Maternal Grandmother Mother Paternal Grandmother Social History Tobacco Use Types Packs/Day Years Used Date Smoking Tobacco: Never Passive Smoke Exposure: Past Smokeless Tobacco: Never Tobacco Cessation:Counseling Given: Not Answered Comments:na Alcohol Use Standard Drinks/Week Comments Not Currently 0 (1 standard drink = 0.6 oz pur e alcohol) AUDIT-C Answer Date Recorded Frequency of Alcohol Consumption Monthly or less 06/04/2019 Average Number of Drinks Not on file 019 Frequency of Binge Drinking Not on file 05/15 PHQ-2 Answer Date Recorded Patient Health Questionnaire-2 Score 0 11/27/2024 Sex and Gender Information Value Date Recorded Sex Assigned at Male 11/27/2024 9:39 AM BLUE LEATHER SETTER Legal Sex Male 7:50 AM CDT Gender Identity Male 11/27/2024 9:39 AM BLUE LEATHER SETTER Sexual Orientation Not on file Last Filed Vital Signs Vital Sign Reading Time Taken Comments Blood Pressure 124/84 11/27/2024 9:39 AM BLUE LEATHER SETTER Pulse 70 11/27/2024 9:39 AM BLUE LEATHER SETTER Temperature 36.3 C (97.3 F) 11/27/2024 9:39 AM BLUE LEATHER SETTER Respiratory Rate 16 11/27/2024 9:39 AM BLUE LEATHER SETTER Oxygen Saturation 97% 11/27/2024 9:39 AM BLUE LEATHER SETTER Inhaled Oxygen Concentration - - Weight 142.7 kg (314 lb 8 oz) 11/27/2024 9:39 AM BLUE LEATHER SETTER Height 172.7 cm (5' 8 ) 11/27/2024 9:39 AM BLUE LEATHER SETTER Body Mass Index 47.82 11/27/2024 9:39 AM BLUE LEATHER SETTER Plan of Treatment Upcoming Encounters Date Type Department Care Team (Late st Contact Info) Description 02/26/2025 11:20 AM CDT Office Visit [facility] Family & Internal Medicine - [id number] [place] [phone] [place] [address] [place] [id number] Health Maintenance Due Date Last Done Comments Annual Medicare Wellness Visit 2017 ASCVD LDL 12/20/2024 12/20/2023, 06/2021, 12/24/2019 Colorectal Cancer Screening Colonoscopy (10 Years) 02/08/2025 02/08/2022, 02/08/2022, 08/25/2016 RSV Immunization or 60+ Years (1 - Risk 60-74 years 1-dose series) 02/27/2025 Postponed fro m 2012 (Going to Outside Clinic) DTaP, Tdap and Td Vaccines (4 - Td or Tdap) 01/07/2033 01/07/2023, 01/12/2017, 01/12/2017 Zoster Vaccines Completed 09/10/2021, 05/14/2021 Pneumococcal Vaccine: 65+ Years Completed 01/04/2023, 06/23/2020, 01/12/2017, Additional history exists Hepatitis C Completed 12/20/2023 COVID-19 Vaccine Completed 08/21/2024, , 09/24/2021, Additional history exists Influenza Adult Completed 08/21/2024, 08/14, 08/30/2023, Additional history exists PHQ-2 (Physician Iliamna) Completed 11/27/2024 Meningococcal B Vaccine Aged Out No l onger eligible based on patient's age to complete this topic Meningococcal Vaccine Aged Out No luz maria kait eligible based on patient's age to complete this topic RSV Immunizations Under 20 Months Aged Out No longer eligible based on patient's age to complete this topic Procedures Procedure Name Priority Date/Time Associated Diagnosis Comments ECHO GENERIC (SCAN ORDER) 11/27/2024 LIPID PANEL 12/20/2023 10:30 AM BLUE LEATHER SETTER HEPATITIS C ANTIBODY 12/20/2023 10:30 AM BLUE LEATHER SETTER COLONOSCOPY GENERIC (SCAN ORDER) 02/08/2022 from Last 3 Months or Most Recently Relevant to Health Maintenance Results * ECHO GENERIC (SCAN ORDER) (11/27/2024) Anatomical Region Laterality Modality Other 11/27/2024 [facility] Scanned SCANNING Final Resu lt * (ABNORMAL) LIPID PANEL (12/20/2023 10:30 AM BLUE LEATHER SETTER) CHOLESTEROL 167 100 - 199 mg/dL [facility] TRIGLYCERIDES 246(H) 0 - 149 mg/dL [facility] HDL 39(L) >39 mg/dL [facility] VLDL CALCULATION 41(H) 5 - 40 mg/dL [facility] LDL (CALCULATED) 87 0 - 99 mg/dL [facility] 1 12/20/2023 10:3 0 AM BLUE LEATHER SETTER 12/20/2023 Narrative [facility] - 12/21/2023 4:12 PM BLUE LEATHER SETTER Performed at: 01 - [facility] [address] [id number] Radio Tester: Kamaljit Pham PhD, Phone: [phone] us Lauro Campbell DO LABORATORY Final Re sult [facility] [address] [place] [address] [facility] * HEPATITIS C ANTIBODY (12/20/2023 10:30 AM BLUE LEATHER SETTER) HEPATITIS C AB Non Reactive Non Reacti [facility] 1 Comment: HCV antibody alone does not differentiate between previously resolved infection and active infection. Equivocal and Reactive HCV antibody results should be followed up with an HCV RNA test to support the diagnosis of active HCV infection. 12/20/2023 10:3 0 AM BLUE LEATHER SETTER 12/20/2023 Narrative [facility] - 12/21/2023 4:12 PM BLUE LEATHER SETTER Performed at: 01 - [facility] [address] [id number] Radio Tester: Kamaljit Pham PhD, Phone: [phone] us Lauro Campbell DO LABORATORY Final Re sult [facility] [address] [place] [address] [facility] * COLONOSCOPY GENERIC (02/08/2022) 02/08/2022 Narrative 02/08/2022 Ordered by an unspecified provider. us Documents Scanned SCANNING Final Result from Last 3 Months or Most Recently Relevant to Health Maintenance Insurance MEDICARE [facility] MEDICAID Advance Directives Documents on File Type Date Recorded Patient Newspaper Vendor Expl anation Power of Senior Principal Architect 01/21/2021 10:58 AM IOANA R OF ATTY Advance Directives and Living Will 10/14/2020 12:52 PM 09/25/2020 POLST * Full Code (Latest Code Status on File) Date Activated Date Inactivated Comments 02/22/2021 10:08 PM 02/24/2021 5:27 PM * Full Code Date Activated Date Inactivated Comments 01/21/2021 6:13 PM 01/21/2021 11:44 PM Care Teams Childcare Worker Relationship Specialty Start Date End Date Lauro Campbell DO [address] [place] [id number] PCP - General FAMILY PRACTICE 06/04/19
--- OUTSIDE RECORDS SUMMARY | 2025-01-17 11:01 | XMS_ITS | Clinical Summary ---
Author Organization [facility] Address [address] [place] [address] Phone Care Team Providers Care Problem Manager Name Role Phone Lauro Campbell DO Primary Care Provider + Ghulam Cheung MD Unavailable [phone] Allergies No known active allergies Medications acetaminophen (TYLENOL) 500 MG Tablet Take 500 mg by mouth every 6 hours as needed. 2 Active aspirin EC 81 MG Tablet Delayed Response Take 81 mg by mouth daily. 2 Active atorvastatin (LIPITOR) 40 MG Tablet Take 40 mg by mouth nightly. 2 Active carbidopa-levod opa (SINEMET) 25-100 MG Tablet Take 2 Tablets by mouth 4 times daily. 2 Active docusate calcium (SURFAK) 240 MG Capsule Take 240 mg by mouth 2 times daily. 0 Active DULoxetine (CYMBALTA) [address] Particles Take 60 mg by mouth daily. 2 Active FeroSul 325 (65 Fe) MG Tablet Take 325 mg by mouth. 2 Active furosemide (LASIX) 20 MG Tablet Take 20 mg by mouth. Takes Tuesday, ay, Sat and Tuesday in addition to 40mg 2 Active furosemide (LASIX) 40 MG Tablet Take 40 mg by mouth in the morning and at bedtime. 2 Active gabapentin (NEURONTIN) 400 MG Capsule Take 1,200 mg by mouth 3 times daily. 4 Active levothyroxine (SYNTHROID) 175 MCG Tablet Take 175 mcg by mouth daily. 2 Active lisinopril (PRINIVIL, ZESTRIL) 2.5 MG Tablet Take 2.5 mg by mouth daily. 2 Active Lurasidone HCl 60 MG Tablet Take by mouth. Ac tive polyethylene glycol (GLYCOLAX) 17 GM/SCOOP Powder Take 17 g by mouth daily. 3 Active potassium chloride SA (KLORCON M) 20 MEQ Tablet Controlled Release Take 20 mEq by mouth daily. 2 Active propranolol (INDERAL) 20 MG Tablet Take 20 mg by mouth 2 times daily. 0 Active sertraline (ZOLOFT) 50 MG Tablet Take 50 mg by mouth daily. 2 Active tamsulosin (FLOMAX) 0.4 MG Capsule Take 0.4 mg by mouth every morning. 2 Active Thera-M Tablet Take 1 Tablet by mouth daily. 2 Active Vitamin D3 50 MCG (1999 UT) Tablet Take 2,000 Units by mouth. 2 Active HYDROmorphone Powder Hydromorphone, Bupivacaine, clonidine (pain pump) 0 4 Active Active Problems Problem Noted Date Diagnosed Date Anemia, unspecified 10/19/2024 Lytic bone lesions on xray 09/21/2024 Basal cell carcinoma (BCC) of left side of nose 11/02/2022 Hypertension Encounters Date Type Department Care Team Description 01/17/2025 Results Follow-Up [facility] [address] [address] Ghulam Cheung MD 01/02/2025 10:00 AM HAIRSPRING TRUING INSPECTOR Ancillary Procedure [facility] [address] [address] Ghulam Cheung MD Lytic bone lesions on xray 01/02/2025 Travel 12/05/2024 Telephone [facility] [address] [address] Ghulam Cheung MD Canopy Call / Unable to have MRI 10/19/2024 11:55 AM HAIRSPRING TRUING INSPECTOR Lab [facility] [address] [phone] Lab, [facility] L[facility] bone lesions on xray 10/19/2024 10:45 AM HAIRSPRING TRUING INSPECTOR Office Visit [facility] [address] [phone] Ghulam Cheung MD Lytic bone lesions on xray (Primary Dx); Anemia, unspecified type 10/19/2024 Travel from Last 3 Months Immunizations Immunization Administration Dates Next Due Influenza Vaccine, Quadrivalent, PF 09/20/2016 Influenza Vaccine,unspecified Formulation 2019,09/16/2015,08/22/2014 Influenza, High-dose, Quadrivalent 08/30/2023, Influenza, Quadrivalent, Adjuvanted 09/02/2021 Influenza, Seasonal, Injectable, Undefined 08/22 Influenza, high-dose, trivalent, PF 08/21/2024,1 Pneumococcal Vaccine - 13 Valent 06/23/2020 Pneumococcal Vaccine Adult - 23 Valent 3,01/12/2017,02/29/2016 TDAP Vaccine 01/07/2023,01/12/2017 Tuberculin Skin Test; Purifi ed Protein Derivative Solutiol 09/09/2010 Zoster Vaccine Recombinant 09/10/2021,05/14/2021 Family History Medical History Relation Name Comments Other-comment Brother bone cancer Heart Disease Father Heart Disease Mother Skin Cancer Mother Relation Name Status Comments Brother Father Mother Social History Tobacco Use Types Packs/Day Years Used Date Smoking Tobacco: Never Smokeless Tobacco: Never Tobacco Cessation:Counseling Given: Not Answered Alcohol Use Standard Drinks/Week Comments Yes 0 (1 standard drink = 0.6 oz pur e alcohol) Sex and Gender Information Value Date Recorded Sex Assigned at Not on file Legal Sex Male 7:17 PM HAIRSPRING TRUING INSPECTOR Gender Identity Not on file Sexual Orientation Not on file Last Filed Vital Signs Vital Sign Reading Time Taken Comments Blood Pressure 122/74 10/19/2024 10:55 AM HAIRSPRING TRUING INSPECTOR Pulse 88 10/19/2024 10:55 AM HAIRSPRING TRUING INSPECTOR Temperature 36.7 C (98 F) 10/19/2024 10:55 AM HAIRSPRING TRUING INSPECTOR Respiratory Rate 18 10/19/2024 10:55 AM HAIRSPRING TRUING INSPECTOR Oxygen Saturation 98% 10/19/2024 10:55 AM HAIRSPRING TRUING INSPECTOR Inhaled Oxygen Concentration - - Weight 142.4 kg (314 lb) 10/19/2024 10:55 AM HAIRSPRING TRUING INSPECTOR Height 177.8 cm (5' 10 ) 10/19/2024 10:55 AM HAIRSPRING TRUING INSPECTOR Body Mass Index 45.05 10/19/2024 10:55 AM HAIRSPRING TRUING INSPECTOR Plan of Treatment Upcoming Encounters Date Type Department Care Team (Late st Contact Info) Description 01/25/2025 11:00 AM CDT Office Visit [facility] [address] [phone] Ghulam Cheung MD [address] [place] [address] Health Maintenance Due Date Last Done Comments Cologuard 2002 Immunochemical Fecal Occult Blood 2002 Respiratory Syncytial Virus (RSV) Immunization (Adult) (1 - Risk 60-74 years 1-dose series) 2012 SARS-COV-2 Immunization (6 - Pfizer risk season) 2025 08/21/2024, 04/30/2022, 09/24/2021, Additional history exists Colonoscopy 02/09/2032 02/08/2022 Colorectal Cancer Screening 02/09/2032 Td Immunization Every 10 Years (Adults With 1 Tdap) 01/07/2033 01/07/2023, 01/12/2017 02/08/2022 Zoster Immunization Completed 09/10/2021, Pneumococcal Immunization (50+ years) Completed 01/04/2023, 06/23/2020, 01/12/2017, Additional history exists TdaP Immunization Discontinued 01/07/2023, 01/12/2017 Hepatitis C Virus (HCV) Screening Completed 12/20/2023 Influenza Immunization Completed , 08/30/2023, 08/18/2022, Additional history exists Hepatitis B Immunization Aged Out No longer eligible based on patient's age to complete this topic Meningococcal Immunization (ACWY) Aged Out No longer eligible based on patient's age to complete this topic Rotavirus Immunization Aged Out No lo nger eligible based on patient's age to complete this topic Procedures Procedure Name Priority Date/Time Associated Diagnosis Comments CT CERVICAL SPINE WO/ CONTRAST Routine 01/02/2025 10:33 AM HAIRSPRING TRUING INSPECTOR Lytic bone lesions on xray CBC WITH AUTO DIFF OH Routine 10/19/2024 11:55 AM HAIRSPRING TRUING INSPECTOR CMP (COMPREHENSIVE METABOLIC PANEL) Routine 10/19/2024 11:55 AM HAIRSPRING TRUING INSPECTOR Lytic bone lesions on xray LACTATE DEHYDROGENASE (LD) Routine 10/19/2024 11:55 AM HAIRSPRING TRUING INSPECTOR Lytic bone lesions on xray FOLIC ACID (FOLATE) Routine 10/19/2024 1 1:55 AM HAIRSPRING TRUING INSPECTOR Lytic bone lesions on xray FERRITIN Routine 10/19/2024 11:55 AM HAIRSPRING TRUING INSPECTOR Lytic bone lesions on xray RETICULOCYTE COUNT (RETIC) Routine 10/19/2024 11:55 AM HAIRSPRING TRUING INSPECTOR Lytic bone lesions on xray IRON W/ IRON BINDING CAPACITY OH Routine 10/19/2024 11:55 AM HAIRSPRING TRUING INSPECTOR Lytic bone lesions on xray VITAMIN B12 Routine 10/19/2024 11:55 AM HAIRSPRING TRUING INSPECTOR Lytic bone lesions on xray HAPTOGLOBIN Routine 10/19/2024 11:55 AM HAIRSPRING TRUING INSPECTOR Lytic bone lesions on xray from Last 3 Months Results * CT CERVICAL SPINE WO/ CONTRAST (01/02/2025 10:33 AM HAIRSPRING TRUING INSPECTOR) Anatomical Region Laterality Modality Spine N/A Computed Tomogra phy Narrative 01/02/2025 10:40 AM HAIRSPRING TRUING INSPECTOR EXAMINATION: CT CERVICAL SPINE WO/ CONTRAST 01/02/2025 INDICATIONS: Disorder of bone, unspecified history of cervical spine surgery, 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 TECHNIQUE: Contiguous axial views are obtained through the cervical spine following no intrathecal administration of contrast. Thereafter multiplanar reconstruction images are made. A dose lowering technique was used for this procedure, which may include, but is not limited to, dose reduction technique(s), automated exposure control techniques, use of iterative reconstruction techniques, and ALARA (as low as reasonably achievable) or ALARA/IMAGE Gently techniques. FINDINGS: There is an anterior compression plate and screws transfixing interposition fusion at cervical 5, cervical 6, and cervical 7. Anterior spondylosis can be seen at cervical two-three, cervical 3-4, cervical 4-5, as well as at some upper visualized thoracic levels. There is grade 1 anterolisthesis cervical 3 on cervical 2 and grade 1 anterolisthesis cervical 4 on cervical 3. Facet joint hypertrophy at multiple cervical levels can be seen. Disc space narrowing is most prominent cervical 3-4. No fracture or dislocation can be seen. No lytic or sclerotic lesions are demonstrated. No erosive arthropathy can be seen. Examination of cervical 2-3 reveals no evidence of herniated nucleus pulposus. The neural foramina appear patent. Exam of cervical 3-4 reveals posterior spondylosis. There is marked foraminal encroachment by uncovertebral hypertrophy on the right. Examination of cervical 4-5 reveals posterior spondylosis in the midline. There is marked foraminal encroachment by uncovertebral hypertrophy and facet joint hypertrophy on the right. Exam of cervical 5-6 reveals postoperative change. No residual or recurrent herniation can be seen in the visualized anatomy. Examination of cervical 6-7 reveals postoperative change. No residual recurrent herniation in the visualized anatomy can be seen. There is marked foraminal encroachment by uncovertebral hypertrophy on the right. Examination cervical 7-thoracic 1 reveals no evidence of herniated nucleus pulposus. Neural foramina appear patent. Vascular calcifications suggest peripheral vascular disease. If further interrogation would be desired, MRI examination could be utilized to better evaluate soft tissue structures in and about the spinal canal as well as to assess for marrow edema microtrabecular fracture at such time as would be clinically appropriate. IMPRESSION Postoperative changes. Degenerative changes as described. Foraminal encroachment at some cervical levels as described, most prominent on the right at cervical 3-4, on the right at cervical 4-5, and on the right at cervical 6-7. Electronically signed by: MALACHI SHULTZ MD Date of Signature: 01/02/2025 10:40:47 Procedure Note Malachi Shultz MD - 01/02/2025 EXAMINATION: CT CERVICAL SPINE WO/ CONTRAST 01/02/2025 INDICATIONS: Disorder of bone, unspecified history of cervical spine surgery, historyof squamous cell carcinoma of the left hand, history of basal cellcarcinoma of the left nose, bone pain COMPARISON: This examination is compared to skeletal survey dated September 21, 2024. TECHNIQUE: Contiguous axial views are obtained through the cervical spine followingno intrathecal administration of contrast. Thereafter multiplanar reconstruction images are made. A dose lowering technique was used for this procedure, which may include,but is not limited to, dose reduction technique(s), automated exposurecontrol techniques, use of iterative reconstruction techniques, and ALARA(as low as reasonably achievable) or ALARA/IMAGE Gently techniques. FINDINGS: There is an anterior compression plate and screws transfixinginterposition fusion at cervical 5, cervical 6, and cervical 7. Anterior spondylosis can be seen at cervical two-three, cervical 3-4,cervical 4- 5, as well as at some upper visualized thoracic levels. There is grade 1 anterolisthesis cervical 3 on cervical 2 and grade 1anterolisthesis cervical 4 on cervical 3. Facet joint hypertrophy at multiple cervical levels can be seen. Disc space narrowing is most prominent cervical 3-4. No fracture or dislocation can be seen. No lytic or sclerotic lesions are demonstrated. No erosive arthropathy can be seen. Examination of cervical 2-3 reveals no evidence of herniated nucleuspulposus. The neural foramina appear patent. Exam of cervical 3-4 reveals posterior spondylosis. There is markedforaminal encroachment by uncovertebral hypertrophy on the right. Examination of cervical 4-5 reveals posterior spondylosis in the midline.There is marked foraminal encroachment by uncovertebral hypertrophy andfacet joint hypertrophy on the right. Exam of cervical 5-6 reveals postoperative change. No residual orrecurrent herniation can be seen in the visualized anatomy. Examination of cervical 6-7 reveals postoperative change. No residualrecurrent herniation in the visualized anatomy can be seen. There ismarked foraminal encroachment by uncovertebral hypertrophy on the right. Examination cervical 7-thoracic 1 reveals no evidence of herniated nucleuspulposus. Neural foramina appear patent. Vascular calcifications suggest peripheral vascular disease. If further interrogation would be desired, MRI examination could beutilized to better evaluate soft tissue structures in and about the spinalcanal as well as to assess for marrow edema microtrabecular fracture atsuch time as would be clinically appropriate. IMPRESSION Postoperative changes. Degenerative changes as described. Foraminal encroachment at some cervical levels as described, mostprominent on the right at cervical 3-4, on the right at cervical 4-5, andon the right at cervical 6-7. Electronically signed by: MALACHI SHULTZ MD Date of Signature: 01/02/2025 10:40:47 Ghulam Cheung MD IMG CT ORDERABLES Final Resu lt * IRON W/ IRON BINDING CAPACITY [place] (10/19/2024 11:55 AM HAIRSPRING TRUING INSPECTOR) IRON 85 50 - 212 ug/dL [facility] UIBC 227 155 - 355 ug/dL [facility] TIBC 312 261 - 478 ug/dl [facility] % Saturation 27 20 - 50 % [facility] 10/19/2024 11:5 5 AM HAIRSPRING TRUING INSPECTOR Narrative [facility] - 10/19/2024 12:40 PM HAIRSPRING TRUING INSPECTOR Release to patient->Immediate Ghulam Cheung MD LAB SEND OUTS Final Result [facility] [address] [place] [address], [place] [phone] * (ABNORMAL) CBC WITH AUTO DIFF [place] (10/19/2024 11:55 AM HAIRSPRING TRUING INSPECTOR) WBC 8.8 4.0 - 10.0 10*3/uL [facility] HGB 12.4(L) 13.7 - 17.5 g/dL [facility] HCT 39.2(L) 40.1 - 51.0 % [facility] PLT 233 163 - 369 10*3/uL [facility] MPV 9.0(L) 9.4 - 12.4 fL [facility] RBC 4.17(L) 4.63 - 6.08 10*6/uL [facility] MCV 94 79 - 95 fL [facility] MCH 29.7 25.6 - 32.2 pg [facility] MCHC 31.6(L) 32.2 - 36.5 g/dL [facility] RDW 13.6 11.6 - 14.4 % [facility] Neutrophils % 64.5 36.0 - 66.0 % [facility] Lymphocytes % 22.0 19.0 - 40.0 % [facility] Monocytes % 10.6 4.1 - 12.1 % [facility] Eosinophils % 1.8 0.0 - 3.5 % [facility] Basophils % 0.5 0.0 - 1.0 % [facility] Absolute Neutrophils 5.7 1.4 - 6.6 10*3/uL [facility] Absolute Lymphocytes 1.9 0.8 - 4.0 10*3/uL [facility] Absolute Monocytes 0.9 0.2 - 1.2 10*3/uL [facility] Absolute Eosinophils 0.2 0.0 - 0.4 10*3/uL [facility] Absolute Basophils 0.0 0.0 - 0.1 10*3/uL [facility] 10/19/2024 11:5 5 AM HAIRSPRING TRUING INSPECTOR Ghulam Cheung MD LAB SEND OUTS Final Result [facility] [place] [address], * VITAMIN B12 (10/19/2024 11:55 AM HAIRSPRING TRUING INSPECTOR) Vitamin B12 300 180 - 914 pg/mL [facility] Blood 10/19/2024 11:5 5 AM HAIRSPRING TRUING INSPECTOR [facility] - 10/22/2024 3:58 PM HAIRSPRING TRUING INSPECTOR Release to patient->Immediate us Ghulam Cheung MD CHEMISTRY ORDERABLES Final R esult Performing Organization Address [facility] de Phone Number [facility] [place] [address], * RETICULOCYTE COUNT (RETIC) (10/19/2024 11:55 AM HAIRSPRING TRUING INSPECTOR) Reticulocyte count 1.60 0.51 - 1.81 % [facility] RET-He 33.40 28.20 - 36.[address] [facility] Comment: RET-He is a direct assessment of incorporation of iron into erythrocyte hemoglobin. It provides an indirect measure of the iron available for new erythropoiesis over past 2-4 days. Blood 10/19/2024 11:5 5 AM HAIRSPRING TRUING INSPECTOR [facility] - 10/19/2024 12:11 PM HAIRSPRING TRUING INSPECTOR Release to patient->Immediate us Ghulam Cheung MD HEMATOLOGY ORDERABLES Final Result Performing Organization Address [facility] de Phone Number [facility] [place] [address], * LACTATE DEHYDROGENASE (LD) (10/19/2024 11:55 AM HAIRSPRING TRUING INSPECTOR) LDH 153 140 - 271 U/L [facility] Blood 10/19/2024 11:5 5 AM HAIRSPRING TRUING INSPECTOR [facility] - 10/19/2024 12:40 PM HAIRSPRING TRUING INSPECTOR Release to patient->Immediate us Ghulam Cheung MD CHEMISTRY ORDERABLES Final R esult Performing Organization Address [facility]/ZIP Co de Phone Number [facility] [place] [address], * HAPTOGLOBIN (10/19/2024 11:55 AM HAIRSPRING TRUING INSPECTOR) HAPTO 192 44 - 215 mg/dL [facility] Blood 10/19/2024 11:5 5 AM HAIRSPRING TRUING INSPECTOR Narrative [facility] - 10/22/2024 1:47 PM HAIRSPRING TRUING INSPECTOR Release to patient->Immediate Ghulam Cheung MD CHEMISTRY ORDERABLES Final R esult Performing Organization Address [facility] Co de Phone Number [facility] [place] [address], * FOLIC ACID (FOLATE) (10/19/2024 11:55 AM HAIRSPRING TRUING INSPECTOR) Folate >20.00 >=5.90 ng/mL [facility] Blood 10/19/2024 11:5 5 AM HAIRSPRING TRUING INSPECTOR Narrative [facility] - 10/22/2024 3:58 PM HAIRSPRING TRUING INSPECTOR Release to patient->Immediate IS THE PATIENT REQUIRED TO BE FASTING FOR 12 HOURS?->No Ghulam Cheung MD CHEMISTRY ORDERABLES Final R esult Performing Organization Address City/[facility]/ZIP Co de Phone Number [facility] [place] [address], * FERRITIN (10/19/2024 11:55 AM HAIRSPRING TRUING INSPECTOR) Ferritin 60 24 - 336 ng/mL [facility] Blood 10/19/2024 11:5 5 AM HAIRSPRING TRUING INSPECTOR Narrative [facility] - 10/22/2024 3:58 PM HAIRSPRING TRUING INSPECTOR Release to patient->Immediate Ghulam Cheung MD CHEMISTRY ORDERABLES Final R esult [facility] [place] [address], * (ABNORMAL) CMP (COMPREHENSIVE METABOLIC PANEL) (10/19/2024 11:55 AM HAIRSPRING TRUING INSPECTOR) Glucose 98 70 - 105 mg/dL [facility] Blood Urea Nitrogen 27(H) 7 - 25 mg/dL [facility] Creatinine 1.3 0.7 - 1.3 mg/dL [facility] Sodium 144 136 - 145 mEq/L [facility] Potassium 5.1 3.5 - 5.1 mEq/L [facility] Chloride 100 98 - 107 mEq/L [facility] Bicarbonate 35(H) 21 - 31 mEq/L [facility] Total Bilirubin 0.4 0.3 - 1.0 mg/dL [facility] Alk. Phosphatase 104 34 - 104 U/L [facility] Aspartate Aminotransferase 14 13 - 39 U/L [facility] Alanine Aminotransferase 5(L) 7 - 52 U/L [facility] Total Protein 6.5 6.4 - 8.9 g/dL [facility] Albumin 4.2 3.5 - 5.7 g/dL [facility] Calcium 9.7 8.6 - 10.3 mg/dL [facility] Anion Gap 14.1 7.0 - 15.0 mEq/L [facility] Globulin 2.3 2.0 - 3.5 g/dL [facility] EGFR 58(L) >60 ml/min/1. 73m2 [facility] Comment: This eGFR is calculated using 2020 CKD-EPI Creatinine equation without race modifier based on the NKF-ASN task force recommendations Blood 10/19/2024 11:5 5 AM HAIRSPRING TRUING INSPECTOR Narrative [facility] - 10/19/2024 12:40 PM HAIRSPRING TRUING INSPECTOR Release to patient->Immediate IS THE PATIENT REQUIRED TO BE FASTING FOR 8 HOURS?->No us Ghulam Cheung MD CHEMISTRY ORDERABLES Final R esult [facility] [place] [address], [place] [phone] from Last 3 Months Insurance MEDICARE [facility] MEDICAID [place] Advance Directives Documents on File Type Date Recorded 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
--- OUTSIDE RECORDS SUMMARY | 2025-01-17 11:03 | XMS_ITS | Clinical Summary ---
Author Organization [facility] al Address [address] [place] [address] Care Team Providers Care Carton Lettering Machine Operator Name Role Phone Lauro Campbell Primary Care Provide r Allergies No known active allergies Medications aspirin 81 mg tablet daily. Active coenzyme [id number] E 100-5 mg-unit capsule TAKE DIRECTED. Active DULoxetine DR (CYMBALTA) 60 mg capsule daily. Active fluvastatin (LESCOL) 20 mg capsule Active sennosides 25 mg tablet Active lisinopril (PRINIVIL,ZESTR IL) 10 mg tablet daily. Active polyethylene glycol (MIRALAX) 17 gram packetIndicatio ns:constipation Take 17 g by mouth as needed for constipation Active multivitamin tabletIndicatio ns:Vitamin Deficiency Prevention Active esomeprazole DR (NexIUM) 40 mg capsule Active Saccharomyces boulardii (FLORASTOR) 250 mg capsule Active cholecalciferol (VITAMIN D-3) 2000 unit capsuleIndicati ons:bone mineral disease Take 5,000 Units by mouth daily Active docusate calcium (COLACE) 240 mg capsuleIndicati ons:constipatio n Take 100 mg by mouth daily as needed for constipation 0 Active meloxicam (MOBIC) 7.5 mg tabletIndicatio ns:Rheumatoid Arthritis Take 7.5 mg by mouth daily [id number] Active tamsulosin (FLOMAX) 0.4 mg extended release capsuleIndicati ons:benign prostatic hyperplasia with lower urinary tract sx Take 0.4 mg by mouth daily Active liraglutide 3 mg/0.5 mL (18 mg/3 mL) pen injectorIndicat ions:Class 2 severe obesity due to excess calories with serious comorbidity and body mass index (BMI) of 35.0 to 35.9 in adult (HCC) Inject 0.6 mg under the skin daily before breakfast. Increase by 0.6 mg every week until max dose 3 pen 2 8 Active simvastatin (ZOCOR) 20 mg tabletIndicatio ns:hyperlipidem ia Take 20 mg by mouth nightly. Indications: excessive fat in the blood 0 Active lurasidone (LATUDA) 40 mg tabletIndicatio ns:Depression associated with Bipolar Disorder Take 40 mg by mouth daily. Indications: bipolar depression 0 Active propranoloL (INDERAL) 20 mg tabletIndicatio ns:Essential Tremor Take 20 mg by mouth 2 (two) times a day. Indications: essential tremor 0 Active busPIRone (BUSPAR) 10 mg tabletIndicatio ns:Generalized Anxiety Disorder Take 10 mg by mouth 3 (three) times a day. rx [id number] Indications: repeated episodes of anxiety Active sertraline (ZOLOFT) 50 mg tabletIndicatio ns:depression Take 50 mg by mouth daily. rx [id number] Indications: depression Active levothyroxine (SYNTHROID) 175 mcg tablet 2 Active potassium chloride ER 20 mEq CR tablet 2 Active gabapentin (NEURONTIN) 300 mg capsule 2 Active furosemide (LASIX) 20 mg tablet [address] (DEPAKOTE) 250 mg EC tablet [address] (DEPAKOTE) 500 mg EC tablet 2 Active ferrous sulfate 325 mg (65 mg of elemental iron) tablet Take 325 mg by mouth daily 2 Active carbidopa-levod opa (SINEMET) 25-100 mg per tablet Take 1 tablet by mouth 3 (three) times a day 2 Active Active Problems Problem Noted Date Diagnosed Date Bipolar 1 disorder 11/01/2022 Hyperlipidemia 11/01/2022 Hypertension 11/01/2022 Orthostatic hypotension 07/30/2022 Ambulatory dysfunction 04/28/2022 Anxiety 04/28/2022 Calculus of kidney 04/28/2022 Contusion of hip, right 04/28/2022 Degeneration of intervertebral disc 04/28/2022 Essential hypertension, benign 04/28/2022 Fall 04/28/2022 Falls frequently 04/28/2022 GERD (gastroesophageal reflux disease) Hematuria 04/28/2022 Left ureteral stone 04/28/2022 Microhematuria 04/28/2022 Osteoarthrosis 04/28/2022 Osteoporosis 04/28/2022 Parkinson disease 04/28/2022 Peripheral neuropathy 04/28/2022 Superficial bruising 04/28/2022 Wound of foot 04/28/2022 Diastolic congestive heart failure 05/29/2021 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 Check TSH today Fatigue 04/13/2016 Assessment & Plan (05/02/2018 3:12 PM CDT): Likely multifactorial Follow up with sleep medicine regarding history of JANIS Labs today Nausea with vomiting 02/20/2016 Obesity 02/20/2016 Assessment & Plan (05/02/2018 3:10 PM CDT): Reviewed low carb diet, counting calories and keeping track in [employer] Mary Ellen Intermittent fasting Maintain water intake Exercise as able Add Victoza. Discussed potential for GI side effects, including pancreatitis. Discussed modification of diet in the first 2 weeks on the medication to decrease risk of nausea/vomiting Arthralgia of hip 02/20/2016 Gonadotropin deficiency 10/30/2015 Excessive sweating 10/24/2015 Muscle pain 10/24/2015 Undescended testicle 08/28/2015 Pain in testicle 08/28/2015 Swelling 06/16/2015 Testosterone deficiency 06/16/2015 Overview (05/02/2018): Initially diagnosed 02/2015. Per report, at that time T level was < 50, with elevated gonadotropins. Pituitary MRI 11/2015 unremarkable. Fathered 2 biological children, continued to shave regularly. Tried T supplementation but stopped due to fluctuating levels on various replacement therapies. Assessment & Plan (05/02/2018 3:07 PM CDT): Obtain 8 AM Testosterone levels, then address supplementation, if appropriate. Consider IM therapy Intolerant of heat 06/16/2015 Overview (05/02/2018): Symptoms have been going on for over 3 years, worse after showering. 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 09/22/2011 Postlaminectomy syndrome of lumbar region 2010 Lumbago 09/08/2011 Lumbar radiculopathy 08/30/2011 Chronic osteomyelitis of pelvic region 0 History of osteomyelitis 10/26/2010 Inflammation of sacroiliac joint 09/13/2010 Infection and inflammatory r eaction due to device, implant, and graft 09/13/2010 Encounters Date Type Department Care Team Description 01/09/2025 Telephone [facility] [address] [place] [address] Micheal bAdul MD from Last 3 Months Immunizations Immunization Administration Dates Next Due Influenza, Unspecified 08/18/2022,08/26/2020 PPD TEST 09/09/2010 Tdap 01/07/2023, 3(Deferred: Other - will reorder to populate pyxis Profile) Surgical History Surgery Date Site/Laterality Comments BACK SURGERY Back Surgery - (Added by TW Conv) HIP SURGERY JOINT REPLACEMENT Medical History Medical History Date Comments Personal history of other di seases of the circulatory system History of hypertension - (A dded by TW Conv) Obesity Osteoarthritis Family History Medical History Relation Name Comments Cancer Mother Family history of malignant neoplasm - (Added by TW Conv) Diabetes Mother Family history of diabetes mellitus - (Added by TW Conv) Stroke Mother Family history of cerebrovascular accident - (Added by TW Conv) Thyroid disease Mother Family histo ry of thyroid problem - (Added by TW Conv) Relation Name Status Comments Father Mother Social History Tobacco Use Types Packs/Day Years Used Date Smoking Tobacco: Never Personal Safety Answer Date Recorded Getting School Help Needed Denies 11/03 Sex and Gender Information Value Date Recorded Sex Assigned at Not on file Legal Sex Male 3:17 AM ABSTRACT CLERK Gender Identity Not on file Sexual Orientation Not on file Occupation Industry Job Start Date Job End Date Retired Not on file Not on file Not on file Obstetrics History Last Filed Vital Signs Vital Sign Reading Time Taken Comments Blood Pressure 149/81 01/07/2023 3:57 PM ABSTRACT CLERK Pulse 74 01/07/2023 3:57 PM ABSTRACT CLERK Temperature 36.8 C (98.2 F) 01/07/2023 3:57 PM ABSTRACT CLERK Respiratory Rate 18 01/07/2023 3:57 PM ABSTRACT CLERK Oxygen Saturation 97% 01/07/2023 3:57 PM ABSTRACT CLERK Inhaled Oxygen Concentration - - Weight 128.4 kg (283 lb 1.1 oz) 01/07/2023 3:57 PM ABSTRACT CLERK Height 185.4 cm (6' 1 ) 01/07/2023 3:57 PM ABSTRACT CLERK Body Mass Index 37.35 01/07/2023 3:57 PM ABSTRACT CLERK Plan of Treatment Health Maintenance Due Date Last Done Comments Colon Cancer Screening-Colonoscopy 1952 Depression Screening 1952 Fall Risk Assessment 1952 Hepatitis C Screening 1952 Hepatitis B Screening 1970 Zoster Vaccine (1 of 2) 2002 Well Visit 65+ 2017 Pneumococcal vaccine 65+ (2 of 2 - PCV) 01/04/2024 01/04/2023 Covid-19 Vaccine (2023-2 5 season) 2024 04/30/2022, 09/24/2021, 01/14/2021, Additional history exists DTaP/Tdap/Td Vaccine (2 - Td or Tdap) 01/07/2033 01/07/2023 Abdominal Aortic Aneurysm (A AA) Screen Completed 02/22/2021 Influenza Vaccine Completed 08/21/2024, , 08/18/2022, Additional history exists Insurance MEDICARE [facility] FEDERAL MEDICARE [employer]PR [employer] [facility] MEDICARE [employer] MEDICARE [facility] Care Teams Carton Lettering Machine Operator Relationship Specialty Start Date End Date Lauro Campbell DO [address] [place] [id number] PCP - General Family Medicine 01/06/23
--- OUTSIDE RECORDS SUMMARY | 2025-01-17 11:03 | XMS_ITS | Referral Summary ---
Author Organization [facility] al Address [address] [place] [address] Care Team Providers Care Rail Doweling Machine Operator Name Role Phone DavidLauro cote Primary Care Provide r Encounters Date Type Department Care Team Description 01/09/2025 Telephone [facility] [id number] [place] [id number] Micheal Abdul MD from Last 3 Months Allergies No known active allergies Medications aspirin 81 mg tablet daily. Active coenzyme Q91-[id number] E 100-5 mg-unit capsule TAKE DIRECTED. Active [...] Arthritis Take 7.5 mg by mouth daily [id number] Active tamsulosin (FLOMAX) 0.4 mg extended release [...] mouth 3 (three) times a day. rx [id number] Indications: repeated episodes of anxiety Active sertraline (ZOLOFT) 50 mg tabletIndicatio ns:depression Take 50 mg by mouth daily. rx [id number] Indications: depression Active levothyroxine (SYNTHROID) 175 mcg [...] artery disease of n ative artery of [place] heart with stable angina pectoris 02/26/2021 Left [...] diet, counting calories and keeping track in [employer] Mary Ellen Intermittent fasting Maintain water intake [...] due to device, implant, and graft 09/13/2010 Immunizations Immunization Administration Dates Next Due Influenza, Unspecified 08/18/2022,08/26/2020 PPD TEST 09/09/2010 Tdap 01/07/2023, 3(Deferred: Other - will reorder to populate pyxis Profile) Social History Tobacco Use Types Packs/Day Years Used Date Smoking Tobacco: Never Personal Safety Answer Date Recorded Getting School Help Needed Denies 11/03 Sex and Gender Information Value Date Recorded Sex Assigned at Not on file Legal Sex Male 3:17 AM BUTTON SAWYER Gender Identity Not on file Sexual Orientation Not on file Occupation Industry Job Start Date Job End Date Retired Not on file Not on file Not on file Last Filed Vital Signs Vital Sign Reading Time Taken Comments Blood Pressure 149/81 01/07/2023 3:57 PM BUTTON SAWYER Pulse 74 01/07/2023 3:57 PM BUTTON SAWYER Temperature 36.8 C (98.2 F) 01/07/2023 3:57 PM BUTTON SAWYER Respiratory Rate 18 01/07/2023 3:57 PM BUTTON SAWYER Oxygen Saturation 97% 01/07/2023 3:57 PM BUTTON SAWYER Inhaled Oxygen Concentration - - Weight 128.4 kg (283 lb 1.1 oz) 01/07/2023 3:57 PM BUTTON SAWYER Height 185.4 cm (6' 1 ) 01/07/2023 3:57 PM BUTTON SAWYER Body Mass Index 37.35 01/07/2023 3:57 PM BUTTON SAWYER Plan of Treatment Not on file Insurance MEDICARE [facility] MEDICARE [facility] BLUE [facility] MEDICARE [facility] MEDICARE [facility] FEDERAL Care Teams Rail Doweling Machine Operator Relationship Specialty Start Date End Date Lauro Campbell DO [address] [place] [phone] PCP - General Family Medicine 01/06/23
--- OUTSIDE RECORDS SUMMARY | 2025-01-17 11:03 | XMS_ITS | Encounter Summary ---
Author Organization [facility] Address [address] [place] [address] Phone Care Team Providers Care Oil Truck Driver Name Role Phone Lauro Campbell DO Primary Care Provider + Ghulam Cheung MD Unavailable [phone] Encounter Details Date Type Department Care Team (Late Contact Info) Description 01/17/2025 Results [facility]-Up [facility] [address] [place] [address] [phone] Ghulam Cheung MD [address] [place] [address] Social History Tobacco Use Types Packs/Day Years Used Date Smoking Tobacco: Never Smokeless Tobacco: Never Alcohol Use Standard Drinks/Week Comments Yes 0 (1 standard drink = 0.6 oz pur e alcohol) Sex and Gender Information Value Date Recorded Sex Assigned at Not on file Legal Sex Male 7:17 PM NETWORK DIAGNOSTIC SUPPORT SPECIALIST Gender Identity Not on file Sexual Orientation Not on file documented as of this encounter Plan of Treatment Upcoming Encounters Date Type Department Care Team (Late Contact Info) Description 01/25/2025 11:00 AM CDT Office Visit [facility] [address] [phone] Ghulam Cheung MD [address] [place] [address] documented as of this encounter Visit Diagnoses Not on filedocumented in this encounter Care Teams Oil Truck Driver Relationship Specialty Start Date End Date Lauro Campbell DO [address] [place] [phone] PCP - General Family Medicine 09/12/24 Ghulam Cheung MD [address] [place] [phone] Consulting Physician Oncology 09/12/24 documented as of this encounter
[2025-01-17 11:17] LABS: Alanine Aminotransferase 14 U/L (6-50); Albumin Level 4.4 g/dL (3.5-5.1); Alkaline Phosphatase 96 U/L (38-126); Anion Gap 12 mmol/L (4-12); Aspartate Amino Transferase 26 U/L (17-59); Bilirubin,Total 0.6 mg/dL (0.2-1.3); Blood Urea Nitrogen 17 mg/dL (9-20); Calcium 9.6 mg/dL (8.4-10.2); Carbon Dioxide 25 mmol/L (22-30); Chloride 103 mmol/L (98-107); Cholesterol 136 mg/dL (0-200); Estimated Glomerular Filt Rate > 60; Glucose 109 mg/dL (65-110); HDL Direct 35 mg/dL; Potassium 4.3 mmol/L (3.4-5.0); Sodium 140 mmol/L (137-145); Triglycerides 207 mg/dL (<150)
[2025-01-17 11:28] LABS: LDL Cholesterol Direct 60 mg/dL
[2025-01-17 11:48] LABS: Prostate Specific Antigen < 0.1 ng/mL (< OR = 4.0)
[2025-01-17 12:09] LABS: Free T4 Free Thyroxine 1.46 ng/dL (0.78-2.19); Vitamin D 25 Hydroxy 71.4 ng/mL
== END 2025-01-17 09:48 | disposition home or self-care (01) ==
LOC: ANHLAB 09:51
PROVIDERS: PCP Student in an Organized Health Care Education/Training Program; Visit Provider Student in an Organized Health Care Education/Training Program
DX: E03.9 Hypothyroidism, unspecified (principal); I10 Essential (primary) hypertension; E78.00 Pure hypercholesterolemia, unspecified; Z12.5 Encounter for screening for malignant neoplasm of prostate
CPT/HCPCS: 36415; 80053; 80061; 82306; 84153; 84439; 84443; 85025; G0103

== ENCOUNTER 2025-06-17 00:19 | Day surgery (SDC) | payer MEDICARE, BC, MEDICAID, SELFPAY ==
[2025-05-29 15:07] VITALS: BMI 39.2
--- OUTSIDE RECORDS SUMMARY | 2025-06-17 00:24 | XMS_ITS | Clinical Summary ---
Author Organization [facility] Address [address] [place] [address] Phone Care Team Providers Care Industrial Cleaning Technician Name Role Phone Lauro Campbell DO Primary Care Provider + Ghulam Cheung MD Unavailable [phone] Allergies No known active allergies Medications acetaminophen [...] Encounters Date Type Department Care Team Description 03/19/2025 Telephone [facility] [address] [phone] Ghulam Cheung MD Canopy Call from Last 3 Months Immunizations Immunization Administration [...] on file Legal Sex Male 7:17 PM MANAGER GOVERNMENT Gender Identity Not on file Sexual Orientation Not on file Last Filed Vital Signs Vital Sign Reading Time Taken Comments Blood Pressure 170/90 01/25/2025 10:47 AM CDT Pulse 80 01/25/2025 10:47 AM CDT Temperature 36.5 C (97.7 F) 01/25/2025 10:47 AM CDT Respiratory Rate 18 01/25/2025 10:4 7 AM CDT Oxygen Saturation 92% 01/25/2025 10: 47 AM CDT Inhaled Oxygen Concentration - - Weight 138.4 kg (305 lb 3.2 oz) 025 10:47 AM CDT Height 182.9 cm (6') 01/25/2025 10:47 AM CDT Body Mass Index 41.39 01/25/2025 10:47 AM CDT Plan of Treatment Upcoming Encounters Date Type Department Care Team (Late st Contact Info) Description 07/26/2025 11:00 AM CDT [facility] [address] [phone] Ghulam Cheung MD [address] [place] [address] [place] [phone] Health Maintenance Due Date Last Done Comments Cologuard 1997 Immunochemical Fecal Occult Blood 1997 Respiratory Syncytial Virus (RSV) Immunization (Adult) (1 - Risk 60-74 years 1-dose series) 2012 SARS-COV-2 Immunization (6 - Pfizer risk season) 2025 08/21/2024, 04/30/2022, 09/24/2021, Additional history exists Influenza Immunization (#1) 2025 100 06/2024, 08/30/2023, 08/18/2022, Additional history exists Colonoscopy 02/09/2032 02/08/2022 Colorectal Cancer Screening 02/09/2032 Td Immunization Every 10 Years (Adults With 1 Tdap) 01/07/2033 01/07/2023, 01/12/2017 Zoster Immunization Completed 09/10/2021, Pneumococcal Immunization (50+ years) Completed 01/04/2023, 06/23/2020, 01/12/2017, Additional history exists TdaP Immunization Discontinued 01/07/2023, 01/12/2017 Hepatitis C Virus (HCV) Screening Completed 12/20/2023 Hepatitis B Immunization Aged Out No longer eligible based on patient's age to complete this topic Human Papillomavirus (HPV) Immunization Aged Out No longer eligible based on patient's age to complete this topic Meningococcal Immunization (ACWY) Aged Out No longer eligible based on patient's age to complete this topic Rotavirus Immunization Aged Out No lo nger eligible based on patient's age to complete this topic Insurance MEDICARE [facility] MEDICAID [place] Advance Directives Documents on File Type Date Recorded Patient Mix Technician Expl anation Power of Making Machine Operator for Health Care 09/12/2024 10:39 AM POLST/POST/CT DNR 09/12/2024 10:39 AM Care Teams Industrial Cleaning Technician Relationship Specialty Start Date End Date Lauro Campbell DO [address] [place] [phone] PCP - General Family Medicine 09/12/24 Ghulam Cheung MD [address] [place] [phone] Consulting Physician Oncology 09/12/24
--- OUTSIDE RECORDS SUMMARY | 2025-06-17 00:24 | XMS_ITS | Patient Health Record ---
Author Organization [facility] Address [address] [place] [address] Care Team Providers Care Adjudication Specialist Name Role Phone Vanessa Calvert Unavailable [phone] Reason For Referral No Information Medications Medication SIG (Take, Route, Frequency, Duration) Notes Start Date End Date Status Lisinopril 20 MG Oral 12/26/2019 Ac tive Divalproex Sodium 500 MG Oral 12/26/2019 Active Levothyroxine Sodium 150 MCG Oral 12/26/2019 Active traMADol HCl 50 MG Oral 12/26/2019 Active busPIRone HCl 10 MG Oral 12/26/2019 Active Divalproex Sodium 250 MG Oral 12/26/2019 Active Meloxicam 7.5 MG Oral 12/26/2019 Ac tive DULoxetine HCl 60 MG Oral 12/26/2019 Active Tamsulosin HCl 0.4 MG Oral 12/26/2019 Active Simvastatin 20 MG Oral 12/26/2019 A ctive Propranolol HCl 20 MG Oral 12/26/2019 Active Furosemide 40 MG Oral 12/26/2019 Ac tive Gabapentin 100 MG Oral 12/26/2019 A ctive Latuda 40 MG Oral 12/26/2019 Active Immunizations Vaccine Route Administration Date Status Comme nts Tdap Unknown 05/14/2019 Administered Influenza virus vaccine, quadrivalent (IIV4), split virus, 0.25 mL dosage Unknown 08/25/2018 Administered Plan Of Treatment No Information Insurance Providers Payer Name Payer Address Payer Phone Subscriber Number Group Number Insured Name Patient Relationship to Insured Coverage Start Date Coverage End Date Medicare-I l Medicare [address] [place] [phone] [id number] BRAYAN LOPEZ Self - patient is the insured [place] [address] [place] [address] [id number] BRAYAN LOPEZ Self - patient is the insured
--- OUTSIDE RECORDS SUMMARY | 2025-06-17 00:24 | XMS_ITS | Encounter Summary ---
Author Organization [facility] Address [address] [place] [address] Phone Care Team Providers Care Dedenter Name Role Phone Lauro Campbell Primary Care Provider + Ghulam Cheung MD Unavailable Reason for Visit * Reason Onset Date Comments Canopy Call 03/19/2025 Encounter Details Date Type Department Care Team (Late st Contact Info) Description 03/19/2025 Telephone [facility] [address] [phone] Ghulam Cheung MD [address] [facility] [address] [place] [address] Canopy Call Social History Tobacco Use Types Packs/Day Years Used Date Smoking Tobacco: Never Smokeless Tobacco: Never Alcohol Use Standard Drinks/Week Comments Yes 0 (1 standard drink = 0.6 oz pur e alcohol) Sex and Gender Information Value Date Recorded Sex Assigned at Not on file Legal Sex Male 7:17 PM GENERAL PEDIATRICIAN Gender Identity Not on file Sexual Orientation Not on file documented as of this encounter Miscellaneous Notes * Telephone Encounter - Aaliyah House - 03/19/2025 1:10 PM CDT Disk will be ready at front office director for patient to belt picker tomorrow, 03/20/25 * Telephone Encounter - Kris Molina RN - 03/19/2025 12:06 PM CDT Canopy Call: Pt is needing a copy of most recent CT scan printed out. Pt would like to pick it up today, if possible. Patient is wanting to belt picker CD of CT scan from 01/02/25 tomorrow if possible. documented in this encounter Plan of Treatment Upcoming Encounters Date Type Department Care Team (Late st Contact Info) Description 07/26/2025 11:00 AM CDT Office Visit [facility] [address] [phone] Ghulam Cheung MD [address] [facility] [address] [phone] documented as of this encounter Visit Diagnoses Not on filedocumented in this encounter Care Teams Dedenter Relationship Specialty Start Date End Date Lauro Campbell DO [address] [place] [phone] PCP - General Family Medicine 09/12/24 Ghulam Cheung MD [address] [place] [phone] Consulting Physician Oncology 09/12/24 documented as of this encounter
--- OUTSIDE RECORDS SUMMARY | 2025-06-17 00:24 | XMS_ITS | Encounter Summary ---
Author Organization [facility] Address [facility] [place] [address] Care Team Providers Care Cmo Name Role Phone Lauro Campbell DO Primary Care Provider + Reason for Visit * Reason Onset Date Comments Lab Results 01/29/2025 Encounter Details Date Type Department Care Team (Late st Contact Info) Description 01/29/2025 Telephone [facility] Family & Internal Medicine [facility] [address] [place] [address] Lauro Campbell DO [address] [place] [address] Lab Results Social History Tobacco Use Types Packs/Day Years Used Date Smoking Tobacco: Never Passive Smoke Exposure: Past Smokeless Tobacco: Never Comments:na Alcohol Use Standard Drinks/Week Comments Not [...] Sex Assigned at Male 11/27/2024 9:39 AM FILLING AND STAPLING MACHINE OPERATOR Legal Sex Male 7:50 AM CDT Gender Identity Male 11/27/2024 9:39 AM FILLING AND STAPLING MACHINE OPERATOR Sexual Orientation Not on file documented as of this encounter Functional Status * RETIRED Are you deaf or do you have serious difficulty hearing Answer Date of Assessment Author Status No 02/22/2021 11:05 PM CDT Acti ve * RETIRED Are you blind or do you have serious difficulty seeing, even when wearing glasses? Answer Date of Assessment Author Status No 02/22/2021 11:05 PM CDT Acti ve * Do you have serious difficulty walking or climbing stairs? Answer Date of Assessment Author Status Yes 02/22/2021 11:05 PM CDT Charbel Todd RN Active * Do you have difficulty dressing or bathing? Answer Date of Assessment Author Status No 02/22/2021 11:05 PM CDT Charbel Todd RN Active * Because of a physical, mental, or emotional condition, do you have difficulty doing errands alone such as visiting a doctor's office or shopping? Answer Date of Assessment Author Status Yes 02/22/2021 11:05 PM CDT Charbel Todd RN Active documented as of this encounter Mental Status * Because of a physical, mental, or emotional condition, do you have serious difficulty concentrating, remembering, or making decisions? Answer Entry Date Author Status No 02/22/2021 11:05 PM CDT Charbel Todd RN Active documented in this encounter Progress Notes * Lauro Campbell DO - 01/29/2025 2:40 PM CDT Please let pt know we have the results of his labs from 01/17/25. His labs are within acceptable limits. They can be repeated in 6-12 months. documented in this encounter Plan of Treatment Upcoming Encounters Date Type Department Care Team (Late st Contact Info) Description 06/28/2025 9:[address] [facility] [place] [address] Buzz Judge MD [address] [place] [address] 06/28/2025 9:[address] [facility] [place] [address] Gus Lau MD 3 [facility]. [address] [place] [address] 06/28/2025 11:00 AM CDT Appointment [facility] [place] [address] Gus Lau MD [address] [facility] [address] [place] [address] 06/28/2025 12:00 PM CDT Appointment [facility] [place] [address] Gus Lau MD 3 [facility]. [address] [place] [address] 10/01/2025 10:20 AM FILLING AND STAPLING MACHINE OPERATOR Office Visit [facility] Medical Group Family & Internal Medicine [address] [address] Lauro Campbell DO [address] [place] [address] documented as of this encounter Visit Diagnoses Not on filedocumented in this encounter Additional Health Concerns Assessment Noted Time PHQ-9 Depression Total Score: 0 12/08/19 11:45 AM FILLING AND STAPLING MACHINE OPERATOR documented as of this encounter Care Teams Cmo Relationship Specialty Start Date End Date Lauro Campbell DO [address] [place] [address] PCP - General FAMILY PRACTICE 06/04/19 documented as of this encounter
--- OUTSIDE RECORDS SUMMARY | 2025-06-17 00:24 | XMS_ITS | Clinical Summary ---
Author Organization [facility] Address [address] [place] [address] Care Team Providers Care Sizing Sponger Name Role Phone Lauro Campbell Primary Care [...] % by Epidural route continuous. Pain pump Landis 1.929 Bup 0.4822 Clonidine 19.29 Active DULoxetine (CYMBALTA) 60 MG capsuleIndications:Bipo lar 1 disorder (CMS/HCC HHS/HCC) Take 1 capsule (60 mg total) by mouth daily. 90 capsule 1 022 Active FEROSUL 325 (65 Fe) MG tabletIndications:Iron deficiency Take 1 tablet (325 mg total) by mouth daily. 90 tablet 1 022 Active aspirin EC (ECOTRIN) 81 MG tabletIndications:Essen tial hypertension, benign,Coronary artery disease of [place] artery of [place] heart with stable angina pectoris Take 1 tablet (81 mg total) by [...] mouth nightly at bedtime. 30 tablet 11 09/30/2 022 Active polyethylene glycol (GLYCOLAX) 17 GM/SCOOP powderIndications:Slow transit constipation TAKE 17GM (1 CAPFUL) MIXED IN 4-8 OZ. OF LIQUID BY MOUTH DAILY NEEDED FOR CONSTIPATION 510 g Active carbidopa-levodopa (SINEMET) 25-250 MG tablet Take 2 tablets by mouth 4 (four) times daily. 024 Active lurasidone (LATUDA) 60 MG tablet Take [...] ON SUNDAYS,TUESDAYS, TUESDAY AND SATURDAYS., Reported on 05/28/2025 potassium chloride CR (KLOR-CON M) 20 MEQ tabletIndications:Hypok alemia TAKE (2O MEQ) TODAY 09/21/2024 THEN TAKE 20 MEQ EVERY MONDAYS, WEDNESDAYS AND FRIDAYS.NEW DOSE 09/21/2024 40 tablet 1 Active HYDROmorphone HCl Powder Hydromorphone, Bupivacaine, clonidine (pain pump) Active BUPivacaine HCl Powder 04/02 024 Active gabapentin (NEURONTIN) 400 MG capsule Take 3 capsules (1,200 mg total) by mouth 3 (three) times daily. Active empagliflozin (JARDIANCE) 25 MG tabletIndications:Chron ic diastolic congestive heart failure (CMS/HCC HHS/HCC) Take 1 tablet (25 mg total) by mouth daily. 30 tablet 2 025 Active chlorhexidine (YU-HEX 4) 4 % Solution Use in shower every day starting 5 days prior to surgery, and AM of surgery. Avoid face/genitalia. Active mupirocin (BACTROBAN) 2 % ointment Apply thin layer to both nostrils bid, starting 5 days prior to surgery and AM of surgery. 025 Active [place]aritan-3 Fatty Acids (FISH OIL) 500 MG capsule Take 500 mg by mouth daily. Active semaglutide-weight management (WEGOVY) 0.5 mg/dose injection (PEN)Indications:Weight Loss Inject 0.5 mg into the skin once a week. 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,JANIS on CPAP INJECT 0.25MG (0.5ML) SUB-Q ONCE WEEKLY ON FRIDAYS FOR 1 MONTH 2 mL 2 025 2024 Disconti nued(Dos e adjustme nt) Active Problems Problem Noted Date Diagnosed Date Body mass index (BMI) 45.0-49.9, adult 5 Stage 3a chronic kidney disease 02/11/2024 Morbid (severe) obesity due to excess calories 1 SCC (squamous cell carcinoma), hand, left 2021 [...] 04/28/2022 Wound of foot 04/28/2022 Parkinson disease ([facility]) 04/28/2022 Diastolic congestive heart failure ([facility]) 05/29/2021 Coronary artery disease of n ative artery of [place] heart with stable angina pectoris 02/26/2021 Left [...] diet, counting calories and keeping track in [employer] [place] Intermittent fasting Maintain water intake [...] graft 09/13/2010 Hypertension Hyperlipidemia Bipolar 1 disorder ([facility]) Resolved Problems Problem Noted Date Diagnosed Date Resolved Date Nausea with vomiting 02/20/2016 022 Gonadotropin deficiency ([facility]) 10/30/2015 02/28/2024 Inflammation of sacroiliac joint 09/13/2010 12/08/2021 Encounters Date Type Department Care Team Description 05/28/2025 9:40 AM CDT Office Visit [facility] Medical Group Family & Internal Medicine [address] [address] Lauro Campbell, CHF (Routine 3 month follow up ); Hypercholesteremia 05/28/2025 Travel 04/23/2025 Scan [facility] INFO SRVCS Scanned, Doc Med Group from Last 3 Months Immunizations Immunization Administration Dates Next Due Fluzone High Dose (IIV, triv alent, 0.5mL) 08/21/2024 Fluzone High Dose - >Age 65 (Prefilled Syringe) 08/30/2023,08/18/2022,09/08/2020 Influenza (Generic) 09/16/2015,08/22/2014 Influenza Adult (Generic) 08/30/2023,03/2022,09/02/2021,2019,09/20/2016,09/16/2015,08/22/2014 PFIZER COVID-19 (12+) MRNA, LNP-S, PF, BENNETT-SUCROSE, 30 MCG/0.3 ML (COMIRNATY) 02/26/2025,08/21/2024 PFIZER COVID-19 (ORIGINAL FORMULATION, PURPLE CAP) mRNA, [...] Past Smokeless Tobacco: Never Tobacco Cessation:Counseling Given: Yes Comments:na Alcohol Use Standard Drinks/Week Comments Not [...] Sex Assigned at Male 11/27/2024 9:39 AM DIRECTOR OF NURSING Legal Sex Male 7:50 AM CDT Gender Identity Male 11/27/2024 9:39 AM DIRECTOR OF NURSING Sexual Orientation Not on file Last Filed Vital Signs Vital Sign Reading Time Taken Comments Blood Pressure 110/68 05/28/2025 9:17 AM CDT Pulse 79 05/28/2025 9:17 AM CDT Temperature 36.3 C (97.4 F) 05/28/2025 9:17 AM CDT Respiratory Rate 16 05/28/2025 9:17 AM CDT Oxygen Saturation 98% 05/28/2025 9:17 AM CDT Inhaled Oxygen Concentration - - Weight 130.6 kg (288 lb) 05/28/2025 9:17 AM CDT Height 172.7 cm (5' 8) 05/28/2025 9:17 AM CDT Body Mass Index 43.79 05/28/2025 9:17 AM CDT Plan of Treatment Upcoming Encounters Date Type Department Care Team (Late st Contact Info) Description 06/28/2025 9:[address] [place] [address] Buzz Judge MD [address] [place] [address] 06/28/2025 9:[address] [facility] [place] [address] Gus Lau MD 3 [facility]. [address] [place] [address] 06/28/2025 11:[address] [facility] [place] [address] Gus Lau MD 3 [facility]. [address] [place] [address] 06/28/2025 12:[address] [place] [address] Gus Lau MD 3 [facility]. [address] [place] [address] 10/01/2025 10:20 AM DIRECTOR OF NURSING Office Visit [facility] Medical Group Family & Internal Medicine [address] [phone] Lauro Campbell, [address] [place] [address] Health Maintenance Due Date Last Done Comments Annual Medicare Wellness Visit 2017 ASCVD LDL 12/20/2024 12/20/2023, 03/0 06/2021, 12/24/2019 Colorectal Cancer Screening Colonoscopy (10 Years) 07/12/2025 02/08/2022, 02/08/2022, 08/25/2016 Postponed from 02/08/2025 (Future Appointment) RSV Immunization or 60+ Years (1 - Risk 60-74 years 1-dose series) 05/28/2026 Postponed fro m 2012 (Going to Outside Clinic) DTaP, Tdap and Td Vaccines (5 - Td or Tdap) 01/07/2033 01/07/2023, 05/14/2019, 01/12/2017, Additional history exists Zoster Vaccines Completed 09/10/2021, 05/14/2021 Pneumococcal Vaccine: 50+ Years Completed 01/04/2023, 06/23/2020, 01/12/2017, Additional history exists Hepatitis C Completed 12/20/2023 PHQ-2 ([place]) Completed 11/27/2024 COVID-19 Vaccine Completed 02/26/2025, 06/2024, 04/30/2022, Additional history exists Meningococcal B Vaccine Aged Out No l onger eligible based on patient's age to complete this topic Meningococcal Vaccine Aged Out No luz maria kait eligible based on patient's age to complete this topic RSV Immunizations Under 20 Months Aged Out No longer eligible based on patient's age to complete this topic Procedures Procedure Name Priority Date/Time Associated Diagnosis Comments LIPID PANEL 12/20/2023 10:30 AM DIRECTOR OF NURSING HEPATITIS C ANTIBODY 12/20/2023 10:30 AM DIRECTOR OF NURSING COLONOSCOPY GENERIC (SCAN ORDER) 02/08/2022 from Last 3 Months or Most Recently Relevant to Health Maintenance Results * (ABNORMAL) LIPID PANEL (12/20/2023 10:30 AM DIRECTOR OF NURSING) CHOLESTEROL 167 100 - 199 mg/dL [facility] TRIGLYCERIDES 246(H) 0 - 149 mg/dL [facility] HDL 39(L) >39 mg/dL [facility] VLDL CALCULATION 41(H) 5 - 40 mg/dL [facility] LDL (CALCULATED) 87 0 - 99 mg/dL [facility] 12/20/2023 10:3 0 AM DIRECTOR OF NURSING 12/20/2023 Narrative [facility] - 12/21/2023 4:12 PM DIRECTOR OF NURSING Performed at: [address] [id number] Assistant Film Editor: Kamaljit Pham PhD, Phone: [phone] Lauro Campbell DO LABORATORY Final Re sult Performing Organization Address [facility] [place] [address] [facility] * HEPATITIS C ANTIBODY (12/20/2023 10:30 AM DIRECTOR OF NURSING) HEPATITIS C AB Non Reactive Non Reacti [facility] Comment: HCV antibody alone does not differentiate between previously resolved infection and active infection. Equivocal and Reactive HCV antibody results should be followed up with an HCV RNA test to support the diagnosis of active HCV infection. 12/20/2023 10:3 0 AM DIRECTOR OF NURSING 12/20/2023 Narrative [facility] - 12/21/2023 4:12 PM DIRECTOR OF NURSING Performed at: [address] [id number] Assistant Film Editor: Kamaljit Pham PhD, Phone: [phone] Lauro Campbell DO LABORATORY Final Re sult Performing Organization Address [facility] de Phone Number [facility] [phone] [facility] * COLONOSCOPY GENERIC (02/08/2022) 02/08/2022 Narrative 02/08/2022 Ordered by an unspecified provider. us Documents Scanned SCANNING Final Result from Last 3 Months or Most Recently Relevant to Health Maintenance Insurance MEDICARE [facility] MEDICAID Advance Directives Documents on File Type Date Recorded Patient Operations Professional Expl anation Power of Ad Compositor 01/21/2021 10:58 AM IOANA R OF ATTY Advance Directives and Living Will 10/14/2020 12:52 PM 09/25/2020 POLST * Full Code (Latest Code Status on File) Date Activated Date Inactivated Comments 02/22/2021 10:08 PM 02/24/2021 5:27 PM * Full Code Date Activated Date Inactivated Comments 01/21/2021 6:13 PM 01/21/2021 11:44 PM Care Teams Sizing Sponger Relationship Specialty Start Date End Date Lauro Campbell DO [address] [place] [address] PCP - General FAMILY PRACTICE 06/04/19
--- OUTSIDE RECORDS SUMMARY | 2025-06-17 00:24 | XMS_ITS | Referral Summary ---
Author Organization [facility] Address [address] [place] [address] Care Team Providers Care Performance Architect Name Role Phone Lauro Campbell Primary Care Provide r Aly Craven MD Unavailable [phone] Micheal Abdul MD Unavailable Vanessa Silva NP Unavailable [phone] Encounters Date Type Department Care Team Description 04/16/2025 1:50 PM CDT - 04/16/2025 11:59 PM CDT Hospital Encounter [facility] [address] [place] [address] Vanessa Silva NP End of battery life of intrathecal infusion pump (Primary Dx); Lumbar radiculopathy Discharge Disposition: Discharge to home or self care 04/10/2025 7:30 AM CDT - 04/10/2025 9:00 AM CDT Surgery [facility] [id number] [place] [address] Micheal Abdul MD INTRATHECAL PAIN PUMP BATTERY REPLACEMENT 04/10/2025 7:30 AM CDT Anesthesia Event [facility] [id number] [place] [id number] Zenobia Mckeon MD PhD 04/10/2025 5:38 AM CDT - 04/10/2025 11:50 AM CDT Hospital Encounter [facility] [address] [place] [address] Micheal Abdul MD End of battery life of intrathecal infusion pump [Z46.2] (Primary Dx); Postlaminectomy syndrome of lumbar region [M96.1] Discharge Disposition: Discharge to home or self care 03/21/2025 Telephone [facility] [address] [place] [address] Nakia Craig from Last 3 Months Allergies No known active allergies Medications aspirin 81 mg tablet Take 1 tablet (81 mg total) by mouth daily Active DULoxetine DR (CYMBALTA) 60 mg capsule Take 1 capsule (60 mg total) by mouth daily Active lisinopriL (PRINIVIL,ZEST RIL) 2.5 mg tablet Take 1 tablet (2.5 mg total) by mouth daily Active polyethylene glycol (MIRALAX) 17 gram packetIndicati ons:constipati on Take 1 packet (17 g total) by mouth as needed for constipation Active multivitamin tabletIndicati ons:Vitamin Deficiency Prevention Take 1 tablet by mouth daily Active cholecalcifero l (VITAMIN D-3) 2000 unit capsuleIndicat ions:bone mineral disease Take 1 capsule (2,000 Units total) by mouth daily Active lurasidone (LATUDA) 60 mg tabletIndicati ons:Depression associated with Bipolar Disorder Take 1 tablet (60 mg total) by mouth daily 0 Active propranoloL (INDERAL) 20 mg tabletIndicati ons:Essential Tremor Take 1 tablet (20 mg total) by mouth 2 (two) times a day 0 Active busPIRone (BUSPAR) 10 mg tabletIndicati ons:Generalize d Anxiety Disorder Take 1 tablet (10 mg total) by mouth 3 (three) times a day rx [id number] Active sertraline (ZOLOFT) 50 mg tabletIndicati ons:depression Take 1 tablet (50 mg total) by mouth nightly rx [id number] Active levothyroxine (SYNTHROID) 175 mcg tablet Take 1 tablet (175 mcg total) by mouth daily 2 Active potassium chloride ER 20 mEq CR tablet Take 1-2 tablets (20-40 mEq total) by mouth as directed Take 2 tablets by mouth daily on Tuesday, Tuesday, and Tuesday. And take 1 tablet in the morning on Tue, , , and Sat. 2 Active gabapentin (NEURONTIN) 400 mg capsule Take 1 capsule (400 mg total) by mouth 3 (three) times a day 2 Active furosemide (LASIX) 40 mg tablet Take 1 tablet (40 mg total) by mouth daily 2 Active ferrous sulfate 325 mg (65 mg of elemental iron) tablet Take 1 tablet (325 mg total) by mouth daily 2 Active atorvastatin (LIPITOR) 40 mg tablet Take 1 tablet (40 mg total) by mouth nightly 5 Active UNABLE TO FIND HYDROMORPHONE HCL POWDER via pain pump 4 Active acetaminophen (TYLENOL) 500 mg tablet Take 1 tablet (500 mg total) by mouth every 4 (four) hours as needed 5 Active empagliflozin (JARDIANCE) 25 mg tablet Take 1 tablet (25 mg total) by mouth daily 5 Active HYDROmorphone, bulk, (DILAUDID) 100 % powder Via pain pump 0 5 Active naloxone (NARCAN) 4 mg/actuation spray,non-aero noam 5 Active Wegovy 0.25 mg/0.5 mL auto-injector Inject 0.25 mg under the skin once a week Take on Tuesday 5 Active carbidopa-levo dopa (SINEMET) 25-250 mg per tablet Take 2 tablets by mouth 4 (four) times a day 5 Active senna-docusate (PERICOLACE) 8.6-50 mg Take 1 tablet by mouth nightly Active tamsulosin (FLOMAX) 0.4 mg extended release capsule Take 1 capsule (0.4 mg total) by mouth daily Active HYDROcodone-ac etaminophen (NORCO) 5-325 mg per tabletIndicati ons:Pain Take 1 tablet by mouth every 6 (six) hours as needed for pain 7 tablet 5 Active Active Problems Problem Noted Date Diagnosed Date End of battery life of intrathecal infusion pump 02/04/2025 Bipolar 1 disorder 11/01/2022 Hyperlipidemia 11/01/2022 Hypertension [...] artery disease of n ative artery of [place] heart with stable angina pectoris 02/26/2021 Left [...] diet, counting calories and keeping track in [employer] [place] Intermittent fasting Maintain water intake [...] Date Smoking Tobacco: Never Passive Smoke Exposure: Never Smokeless Tobacco: Never Tobacco Cessation:Counseling Given: Not Answered AUDIT-C Answer Date Recorded Q1: How often do you have a drink containing alc ohol? Monthly or less 04/10/2025 Q2: How many drinks containi ng alcohol do you have on a typical day when you are drinking? 1 or 2 04/10/2025 Q3: How often do you have si x or more drinks on one occasion? Never 04/10/2025 Personal Safety Answer Date Recorded Have you ever been in or are you currently in a harmful physical or emotional relationship or is someone making you feel afraid or unsafe? Denies 04/10/2025 Sex and Gender Information Value Date Recorded Sex Assigned at Not on file Legal Sex Male 3:17 AM AUTHORIZATION COORDINATOR Gender Identity Not on file Sexual Orientation Not on file Occupation Industry Job Start Date Job End Date Retired Not on file Not on file Not on file Last Filed Vital Signs Vital Sign Reading Time Taken Comments Blood Pressure 131/77 04/16/2025 2:28 PM CDT Pulse 71 04/16/2025 2:28 PM CDT Temperature 36.9 C (98.4 F) 04/10/2025 10:07 AM CDT Respiratory Rate 20 04/16/2025 2:28 PM CDT Oxygen Saturation 99% 04/16/2025 2:28 PM CDT Inhaled Oxygen Concentration - - Weight 133.6 kg (294 lb 8 oz) 04/10/2025 7:28 AM CDT Height 182.9 cm (6') 04/10/2025 7:28 AM CDT Body Mass Index 39.94 04/10/2025 7:28 AM CDT Plan of Treatment Not on file Medical Devices Implanted Type Area Performance Architect Device Identifier Shelf Expiration Date Model / Serial / Lot [employer] X Pump Infusion Programmable Ulp Ami 20ml Volume 8667-20 - [id number] - [id number] Implanted:Qty: 1 on 04/10/2025 by Micheal Abdul MD at [facility] N/A: Abdomen [employer] X 07/11/2026 8667-20 / [id number] / Procedures Procedure Name Priority Date/Time Associated Diagnosis Comments INSERTION PUMP - PAIN MANAGEMENT 04/10/2025 7:30 AM CDT LOW BACK PAIN from Last 3 Months Insurance [facility] MEDICARE [facility] BLUE ACCESS [place] MEDICARE [facility] MEDICARE [facility] FEDERAL Care Teams Performance Architect Relationship Specialty Start Date End Date Lauro aCmpbell DO [address] [place] [address] PCP - General Family Medicine 01/06/23 Aly Craven MD [address] [place] [address] Surgeon Anesthesiology 04/16/25 [place] [address] [facility] [address] [address] Consulting Physician Pain Management 04/16/25 [place] [id number] [address] Nurse Practitioner Conical Mixer 04/16/25
--- OUTSIDE RECORDS SUMMARY | 2025-06-17 00:24 | XMS_ITS | Clinical Summary ---
Author Organization [facility], Formerly [facility] al Address [address] [place] [address] Care Team Providers Care Wood Bucker Name Role Phone Nasirrobinsonkera Laurokate Hale Primary Care Provide r Aly Craven MD Unavailable [phone] Micheal Abdul MD Unavailable Vanessa Silva NP Unavailable Allergies No known active allergies Medications aspirin [...] mouth 3 (three) times a day rx [id number] Active sertraline (ZOLOFT) 50 mg tabletIndicati ons:depression Take 1 tablet (50 mg total) by mouth nightly rx [id number] Active levothyroxine (SYNTHROID) 175 mcg tablet Take 1 tablet (175 mcg total) by mouth daily 2 Active potassium chloride ER 20 mEq CR tablet Take 1-2 tablets (20-40 mEq total) by mouth as directed Take 2 tablets by mouth daily on Tuesday, Tuesday, and Tuesday. And take 1 tablet in the morning on Sun, Tues, Th, and Sat. 2 Active gabapentin (NEURONTIN) 400 [...] Falls frequently 04/28/2022 GERD (gastroesophageal reflux disease) 2 Hematuria 04/28/2022 Left ureteral stone 04/28/2022 Microhematuria 04/28/2022 Osteoarthrosis 04/28/2022 Osteoporosis 04/28/2022 Parkinson disease 04/28/2022 Peripheral neuropathy 04/28/2022 Superficial bruising 04/28/2022 Wound of foot 04/28/2022 Diastolic congestive heart failure 05/29/2021 Coronary artery disease of n ative artery of [place] heart with stable angina pectoris 02/26/2021 Left [...] diet, counting calories and keeping track in [employer] Mary Ellen Intermittent fasting Maintain water intake [...] - 04/16/2025 11:59 PM CDT Hospital Encounter [facility] [address] [place] [id number] Vanessa Silva NP End of battery life of intrathecal infusion pump (Primary Dx); Lumbar radiculopathy Discharge Disposition: Discharge to home or self care 04/10/2025 7:30 AM CDT - 04/10/2025 9:00 AM CDT Surgery [facility] Operating Room [address] [place] [phone] Micheal Abdul MD INTRATHECAL PAIN PUMP BATTERY REPLACEMENT 04/10/2025 7:30 AM CDT Anesthesia Event [facility] Operating Room [address] [place] [id number] Zenobia Mckeon MD PhD 04/10/2025 5:38 AM CDT - 04/10/2025 11:50 AM CDT Hospital Encounter [facility] Operating Room [address] [place] [id number] Micheal Abdul MD End of battery life of intrathecal infusion pump [Z46.2] (Primary Dx); Postlaminectomy syndrome of lumbar region [M96.1] Discharge Disposition: Discharge to home or self care 03/21/2025 Telephone [facility] [address] [place] [id number] Nakia Craig from Last 3 Months Immunizations Immunization Administration Dates Next Due Influenza, Unspecified 08/18/2022,08/26/2020 PPD TEST 09/09/2010 Tdap 01/07/2023, 3(Deferred: Other - will reorder to populate pyxis Profile) Surgical History Surgery Date Site/Laterality Comments BACK SURGERY Back Surgery - (Added by TW Conv) HIP SURGERY JOINT REPLACEMENT right hip INTRATHECAL PUMP IMPLANTATION 04/10/[address]Chris Abdul Medical History Medical History Date Comments Personal history of other di seases of the circulatory system History of hypertension - (A dded by Conv) Obesity Osteoarthritis Sleep apnea Hypertension Anemia Anxiety Bipolar disorder History of degenerative disc disease Dysuria GERD (gastroesophageal reflux disease) High cholesterol Hypothyroidism Depression Neuropathy Osteoporosis Urinary incontinence Vitamin deficiency Family History Medical History Relation Name Comments Cancer Mother Family history of malignant neoplasm - (Added by Conv) Diabetes Mother Family history of diabetes mellitus - (Added by Conv) Stroke Mother Family history of cerebrovascular accident - (Added by Conv) Thyroid disease Mother Family histo ry of thyroid problem - (Added by Conv) Relation Name Status Comments Father Mother [...] on file Legal Sex Male 3:17 AM [employer] TIME TRAD[employer] Gender Identity Not on file Sexual Orientation [...] 04/10/2025 7:28 AM CDT Plan of Treatment Health Maintenance Due Date Last Done Comments Colon Cancer Screening-Colonoscopy 1950 Depression Screening 1950 Hepatitis C Screening 1952 Hepatitis B Screening 1970 Zoster Vaccine (1 of 2) 2002 Well Visit 65+ 2017 Pneumococcal vaccine 65+ (2 of 2 - PCV) 01/04/2024 01/04/2023 Covid-19 Vaccine (5 - 2023-2 5 season) 2024 04/30/2022, 09/24/2021, 01/14/2021, Additional history exists Influenza Vaccine (#1) 2025 , 08/30/2023, 08/18/2022, Additional history exists Fall Risk Assessment 04/16/2026 04/16/2025 DTaP/Tdap/Td Vaccine (2 - Td or Tdap) 01/07/2033 01/07/2023 Medical Devices Implanted Type Area Aquaculture Farmer Device Identifier Shelf Expiration Date Model / Serial / Lot [employer] X Pump Infusion Programmable Ulp Ami 20ml Volume 8667-20 - [id number] - [id number] Implanted:Qty: 1 on 04/10/2025 by Micheal Abdul MD at [facility] N/A: Abdomen [employer] X 07/11/2026 8667-20 / [id number] / Procedures Procedure Name Priority Date/Time Associated Diagnosis Comments INSERTION PUMP - PAIN MANAGEMENT 04/10/2025 7:30 AM CDT LOW BACK PAIN from Last 3 Months Insurance MEDICARE [facility] MEDICARE [facility] BLUE ACCESS [place] MEDICARE [facility] TRAD[facility]AL MEDICARE [facility] FEDERAL Care Teams Wood Bucker Relationship Specialty Start Date End Date Lauro Campbell DO [address] [place] [id number] PCP - General Family Medicine 01/06/23 Aly Craven MD [address] [address] Surgeon Anesthesiology 04/16/25 [place] [id number] [facility] [address] [place] [address] Consulting Physician Pain Management 04/16/25 [place] [phone] [facility] [address] [place] [address] Nurse Practitioner Collections Agent 04/16/25
--- NOTE | 2025-06-17 07:22 | P.PNAN_ITS ---
Anes - Initial Pre Proc Eval Procedure: Operation Date: 06/17/25 10:15 Proposed Procedures p Screening Colonoscopy - Tarik Ortiz MD Date/Time: 06/17/25 07:22 Surgeon: Tarik Ortiz MD Pre Op Diagnosis: neoplasm screening Patient Data Age: 74 Gender: M Height: 1.83 m Weight: 131 kg Allergies Allergy/AdvReac Type Severity Reaction Status Date / Time No Known Allergies Allergy Verified 06/17/25 08:55 Home Medications ?Medication ?Instructions ?Recorded ?Confirmed ?Type tamsulosin 0.4 mg capsule 0.4 mg PO DAILY 10/20/19 06/17/25 History buspirone 10 mg tablet 10 mg PO TID 04/23/20 06/17/25 History cholecalciferol (vitamin D3) 50 2,000 unit PO DAILY 04/23/20 06/17/25 History mcg (2,000 unit) tablet (Vitamin D3) furosemide 40 mg tablet 40 mg PO DAILY 04/23/20 06/17/25 History levothyroxine 150 mcg tablet 150 mcg PO DAILY 04/23/20 06/17/25 History polyethylene glycol 3350 17 17 g PO DAILY 04/23/20 06/17/25 History gram/dose oral powder (Miralax) ferrous sulfate 325 mg (65 mg 325 mg PO DAILY 3 months #90 tabs 02/02/22 0 06/17/25 Rx iron) tablet lurasidone 60 mg tablet (Latuda) 60 mg PO DAILY 11/11/22 06/17/25 History gabapentin 300 mg capsule 400 mg PO QID 04/12/23 06/17/25 History acetaminophen 500 mg capsule 500 mg PO Q6H PRN fever or pain 04/03/24 06/17/25 History aspirin 81 mg tablet,delayed 81 mg PO DAILY 04/03/24 06/17/25 History release (Adult Low Dose Aspirin) atorvastatin 40 mg tablet 40 mg PO DAILY 04/03/24 05/29/25 History duloxetine 60 mg capsule,delayed 60 mg PO DAILY 04/03/24 06/17/25 History release sertraline 50 mg tablet 50 mg PO DAILY 04/03/24 06/17/25 History lisinopril 2.5 mg tablet 2.5 mg PO DAILY 10/23/24 06/17/25 History propranolol 20 mg tablet 20 mg PO Q12H 10/23/24 06/17/25 History carbidopa 25 mg-levodopa 250 mg 2 tablet PO QID #240 tabs 01/22/25 05/29/25 Rx tablet empagliflozin 25 mg tablet 25 mg PO DAILY 01/22/25 06/17/25 History (Jardiance) empagliflozin 25 mg tablet 25 mg PO DAILY 03/12/25 06/17/25 History semaglutide (weight loss) 0.25 0.25 mg subcut WEEKLY 03/12/25 06/17/25 History mg/0.5 mL subcutaneous pen injector (Wegovy) Patient hx anesthesia problems: none Family hx anesthesia problems: none Results Review: All pre-operative results and documents have been reviewed as part of the pre- operative evaluation. [facility] Past Medical History Medical History (Updated 06/17/25 @ 07:22 by Phani Campbell DO) Pulmonary hypertension Frequent falls Central sleep apnea Essential hypertension, benign JANIS (obstructive sleep apnea) Anxiety Depression Bipolar disorder Hypothyroidism Back pain Bilateral ankle fractures DDD (degenerative disc disease) Osteoporosis Arthritis Kidney stone GERD (gastroesophageal reflux disease) Surgical History Surgical History Hx of spinal surgery spinal fusion on L4-L5 History of right hip replacement Family History Family History Mother Hypertension, Onset Age: 83 Family history of respiratory disorder, Onset Age: 83 Family history of chronic obstructive pulmonary disease, Onset Age: 83 Depression Anxiety Diabetes mellitus Cerebrovascular accident Sibling Skin cancer Grandparent Skin cancer Diabetes mellitus Hypertension Cerebrovascular accident Grandparent Skin cancer Other Family history of gynecological problem Social History Social History Smoking status: Never smoker Alcohol intake: current Drinks per week: 2 Alcohol use details: on occasion Substance use: never Substance use type: does not use Lack of Transportation: No Lack of Food: Never True Current Housing: I Have Housing Concerned About Future Housing: No Difficulty Paying Gas/Electric Bills: No Difficulty Paying for Meds: No Currently Unemployed: No Education: Trade/Vocational Certificate Difficulty w/ Childcare or Family Care: No Living arrangements: assisted living Occupation/Education: retired Gender identity (if verbalized by the patient): Male Spiritual care concerns: No Anes - Eval Final PreProcedure Day of Procedure 06/17/25 07:22 Patient weight: obese Heart: regular rate and rhythm Lungs: clear to auscultation Airway: Mallampati scale class II Neurological: alert and oriented Last oral intake: >/= 8 hours ASA classification: III Emergent: no Anesthetic plan: proceed Anesthesia type and monitoring: general GIVS and standard monitoring Results Review: All pre-operative results and documents have been reviewed as part of the pre- operative evaluation. Informed Consent: The patient's anesthetic plan and its attendant risks and benefits were discussed with the patient/family/POA. Questions were solicited and answers provided to the satisfaction of the patient/family/POA.
[2025-06-17 08:59] VITALS: BP 156/90; PULSE 77; RESP 18; TEMP 37.7; O2SAT 96; BMI 38.3
--- NOTE | 2025-06-17 09:42 | PM.IMHP ---
H&P: HPI History of Present Illness Date/Time: 06/17/25 09:42 Chief Complaint: History of colon polyps Narrative: The patient has a history of colonic polyps, the last colonoscopy was 4 years ago. Review of Systems Review of Systems: All systems reviewed & are unremarkable except as noted in HPI and below PMFSH Past Medical History Medical History (Updated 06/17/25 @ 09:42 by Tarik Ortiz MD) Pulmonary hypertension Frequent falls Central sleep apnea Essential hypertension, benign JANIS (obstructive sleep apnea) Anxiety Depression Bipolar disorder Hypothyroidism Back pain Bilateral ankle fractures DDD (degenerative disc disease) Osteoporosis Arthritis Kidney stone GERD (gastroesophageal reflux disease) Surgical History Surgical History Hx of spinal surgery spinal fusion on L4-L5 History of right hip replacement Family History Family History Mother Hypertension, Onset Age: 83 Family history of respiratory disorder, Onset Age: 83 Family history of chronic obstructive pulmonary disease, Onset Age: 83 Depression Anxiety Diabetes mellitus Cerebrovascular accident Sibling Skin cancer Grandparent Skin cancer Diabetes mellitus Hypertension Cerebrovascular accident Grandparent Skin cancer Other Family history of gynecological problem Social History Social History Smoking status: Never smoker Alcohol intake: current Drinks per week: 2 Alcohol use details: on occasion Substance use: never Substance use type: does not use Lack of Transportation: No Lack of Food: Never True Current Housing: I Have Housing Concerned About Future Housing: No Difficulty Paying Gas/Electric Bills: No Difficulty Paying for Meds: No Currently Unemployed: No Education: Trade/Vocational Certificate Difficulty w/ Childcare or Family Care: No Living arrangements: assisted living Occupation/Education: retired Gender identity (if verbalized by the patient): Male Spiritual care concerns: No Meds Home Medications and Allergies Home Medications ?Medication ?Instructions ?Recorded ?Confirmed ?Type tamsulosin 0.4 mg capsule 0.4 mg PO DAILY 10/20/19 06/17/25 History buspirone 10 mg tablet 10 mg PO TID 04/23/20 06/17/25 History cholecalciferol (vitamin D3) 50 2,000 unit PO DAILY 04/23/20 06/17/25 History mcg (2,000 unit) tablet (Vitamin D3) furosemide 40 mg tablet 40 mg PO DAILY 04/23/20 06/17/25 History levothyroxine 150 mcg tablet 150 mcg PO DAILY 04/23/20 06/17/25 History polyethylene glycol 3350 17 17 g PO DAILY 04/23/20 06/17/25 History gram/dose oral powder (Miralax) ferrous sulfate 325 mg (65 mg 325 mg PO DAILY 3 months #90 tabs 02/02/22 06/17/25 Rx iron) tablet lurasidone 60 mg tablet (Latuda) 60 mg PO DAILY 11/11/22 06/17/25 History gabapentin 300 mg capsule 400 mg PO QID 04/12/23 06/17/25 History acetaminophen 500 mg capsule 500 mg PO Q6H PRN fever or pain 04/03/24 06/17/25 History aspirin 81 mg tablet,delayed 81 mg PO DAILY 04/03/24 06/17/25 History release (Adult Low Dose Aspirin) atorvastatin 40 mg tablet 40 mg PO DAILY 04/03/24 05/29/25 History duloxetine 60 mg capsule,delayed 60 mg PO DAILY 04/03/24 06/17/25 History release sertraline 50 mg tablet 50 mg PO DAILY 04/03/24 06/17/25 History lisinopril 2.5 mg tablet 2.5 mg PO DAILY 10/23/24 06/17/25 History propranolol 20 mg tablet 20 mg PO Q12H 10/23/24 06/17/25 History carbidopa 25 mg-levodopa 250 mg 2 tablet PO QID #240 tabs 01/22/25 05/29/25 Rx tablet empagliflozin 25 mg tablet 25 mg PO DAILY 01/22/25 06/17/25 History (Jardiance) empagliflozin 25 mg tablet 25 mg PO DAILY 03/12/25 06/17/25 History semaglutide (weight loss) 0.25 0.25 mg subcut WEEKLY 03/12/25 06/17/25 History mg/0.5 mL subcutaneous pen injector (Wegovy) Allergies Allergy/AdvReac Type Severity Reaction Status Date / Time No Known Allergies Allergy Verified 06/17/25 08:55 Vital Signs Vital Signs - 24 hr 06/17/25 08:59 Temperature 99.9 F H Pulse Rate 77 Respiratory Rate 18 Blood Pressure 156/90 H Pulse Oximetry 96 Oxygen Delivery Room Air Exam Const: General: cooperative and healthy appearing Resp: Effort & Inspection: normal respiratory effort and able to speak in complete sentences Auscultation: clear to auscultation bilaterally Cardio: Rate: regular rate Rhythm: regular rhythm GI: Inspection: normal to inspection GI Palp: No No hepatosplenomegaly present Auscultation: normal bowel sounds Rectal Exam: deferred Skin: General skin exam: normal color Psych: Appearance: grossly normal Mental Status: mental status grossly normal Assessment and Plan Assessment and plan (1) History of colonic polyps: Code(s): Z86.0100 - Personal history of colon polyps, unspecified Status: Acute Assessment and Plan: The patient is deemed a good candidate for the procedure. Consent signed. Will proceed.
[2025-06-17] MEDS: LACTATED RINGERS 1,000 ML 150 ML IV CONT (09:55)
[2025-06-17 10:17] VITALS: BP 144/75; PULSE 70; RESP 14; O2SAT 98
[2025-06-17 10:27] VITALS: BP 159/80; PULSE 61; RESP 14; O2SAT 95
[2025-06-17 10:37] VITALS: BP 159/83; PULSE 62; RESP 16; O2SAT 100
== END 2025-06-17 10:45 | disposition home or self-care (01) ==
PROVIDERS: PCP Student in an Organized Health Care Education/Training Program; Referring Provider Internal Medicine Gastroenterology; Visit Provider Internal Medicine Gastroenterology
PROC: 0DJD8ZZ Inspection of Lower Intestinal Tract, Via Natural or Artificial Opening Endoscopic (ICD-10-PCS; CPT 45378; principal; 2025-06-17 10:15)
DX: Z12.11 Encounter for screening for malignant neoplasm of colon (principal); E03.9 Hypothyroidism, unspecified; M81.0 Age-related osteoporosis without current pathological fracture; K21.9 Gastro-esophageal reflux disease without esophagitis; I10 Essential (primary) hypertension; G47.33 Obstructive sleep apnea (adult) (pediatric); I27.20 Pulmonary hypertension, unspecified; G47.31 Primary central sleep apnea; F41.9 Anxiety disorder, unspecified; F31.9 Bipolar disorder, unspecified; M51.9 Unspecified thoracic, thoracolumbar and lumbosacral intervertebral disc disorder; M19.90 Unspecified osteoarthritis, unspecified site; E66.9 Obesity, unspecified; Z68.38 Body mass index [BMI] 38.0-38.9, adult; Z79.82 Long term (current) use of aspirin; Z79.84 Long term (current) use of oral hypoglycemic drugs; Z79.85 Long-term (current) use of injectable non-insulin antidiabetic drugs; Z98.890 Other specified postprocedural states; Z98.1 Arthrodesis status; Z86.0100 Personal history of colon polyps, unspecified; Z87.442 Personal history of urinary calculi; Z84.0 Family history of diseases of the skin and subcutaneous tissue
CPT/HCPCS: G0105; J2003; J2704; J7120